=== PATIENT | male | born 1945 | race Caucasian/White ===

== ENCOUNTER 2016-05-19 14:31 | Inpatient (IN) | payer MEDICARE, BC ==
[~2016-05-19] VITALS: Ht 182.9 cm; Wt 127.0 kg
[~2016-05-19 14:31] MED LIST: ACYC400T PO; ALBU8I INH; ASPI325T24 PO; AVAP300T PO; BUPR300T PO; CELE200C PO; FIBECAP2 PO; HYDR-3129 PO; LEVA750T PO; PRAV40TA2 PO; PRED10PA PO; RANI150T PO; RAPA8CAP PO; REST0.05 EACH EYE; SYMB160A INH; TIOT18I INH; Z.0.OXYGENDME NC
[2016-05-19 14:50] VITALS: BP 138/82; PULSE 109; RESP 16; TEMP 99.7; O2SAT 90
[2016-05-19 19:25] VITALS: BP 165/79; PULSE 97; RESP 18; TEMP 98; O2SAT 100
[2016-05-19] MEDS ORDERED: SODIUM CHLOR 0.9% 1000 ML INJ 1,000 ML IV ONE (19:30)
--- NOTE | 2016-05-19 19:52 | PD ---
HPI Chief Complaint: Altered Mental Status Time Seen by Provider: 19:09 Travel History International Travel<30 days: No Contact w/Intl Traveler<30days: No Traveled to known affect area: No History of Present Illness HPI 71yo M with PMH of ITP s/p splenectomy, prostate cancer, COPD on home O2 2L NC brought in by daughter for altered mental status. Her daughter is visiting and noticed that he was more tired than usual yesterday and brought him to his urologist for routine follow up for prostate CA. He was told to go to his PMD Dr. Alonzo because he did not look good. Pt went to Dr. Alonzo and was sent to the ED for further evaluation. Daughter states that he has been saying things such as the color of the clock that was wrong and has been repeating himself. Pt denies any fever, headache, visual changes, chest pain, sob, vomiting, abdominal pain, focal weakness or numbness. Pt is feeling nauseous and has a tender right anterior lump that feels like a lymph node. PFSH Past Medical History Arthritis: No Asthma: No Autoimmune Disease: No Blood Disorders: No Anxiety: Yes Depression: No Heart Rhythm Problems: No Cancer: Yes (PROSTATE CA) Cardiovascular Problems: No High Cholesterol: No Chemotherapy: No Chest Pain: No Congestive Heart Failure: No COPD: Yes Cerebrovascular Accident: No Diabetes: No Diminished Hearing: No Endocrine: No Gastrointestinal Disorders: Yes (ACID REFLUX ) GERD: Yes Genitourinary: No Headaches: Yes Hepatitis: No Heparin Induced Thrombocytopen: No Hypertension: Yes Immune Disorder: No Implanted Vascular Access Dvce: Yes Kidney Stones: No Medical other: No Musculoskeletal: Yes (ARTHRITIS;LOSS OF MUSCLE) Neurologic: Yes (HX MINI STROKE) Psychiatric: No Reproductive: Yes (PROSTATE CA) Respiratory: Yes Migraines: No Myocardial Infarction: Yes Radiation Therapy: No Renal Failure: No Seizures: No Sickle Cell Disease: No Sleep Apnea: No Thyroid Disease: No Ulcer: No Past Surgical History Abdominal Surgery: No AICD: No Appendectomy: No Arteriovenous Shunt: No Body Medical Devices: LUPE SHOULDER REPLAC Cardiac Surgery: No Cholecystectomy: No Ear Surgery: Yes (MASTOID/ RIGHT EAR DRUM REPLAC 1996) Endocrine Surgery: No Eye Surgery: No Genitourinary Surgery: No Insulin Pump: No Joint Replacement: Yes (LUPE shoulder replacement) Neurologic Surgery: No Oral Surgery: Yes (TONSILLECTOMY ) Pacemaker: No Thoracic Surgery: No Tonsillectomy: Yes Other Surgery: Yes (SPLEEN) Social History Alcohol Use: No Tobacco Use: No Substance Use: No Allergies-Medications (Allergen,Severity, Reaction): Coded Allergies: No Known Allergies (Verified , 05/19/16) Reported Meds & Prescriptions Reported Meds & Active Scripts Active Reported Rapaflo (Silodosin) 8 Mg Cap 8 Mg PO DAILY Ranitidine (Ranitidine HCl) 150 Mg Tab 150 Mg PO BID Pravastatin 40 Mg Tab 40 Mg PO DAILY Avapro (Irbesartan) 300 Mg Tab 300 Mg PO DAILY [place] (Hydrocodone-Acetaminophen) 10-325 Mg Tab 1 Tab PO Q4H PRN Restasis Opth Drops (Cyclosporine Opth Drops) 0.05% Emul 1 Drop EACH EYE BID Celebrex (Celecoxib) 200 Mg Cap 200 Mg PO BID Bupropion HCl ER 24 HR (Bupropion HCl) 300 Mg Tab 300 Mg PO DAILY Symbicort Inh (Budesonide/Formoterol Fumarate) 160-4.5 Mcg/Act Aero 2 Puff INH Q12HR Ecotrin Regular Strength (Aspirin) 325 Mg Tabdr 325 Mg PO DAILY Ventolin Hfa 18 GM Inh (Albuterol Sulfate) 90 Mcg/Act Aer 2 Puff INH Q4-6H PRN Acyclovir 400 Mg Tab 400 Mg PO BID Review of Systems Except as stated in HPI: all other systems reviewed are Neg Physical Exam Narrative GENERAL: 71yo M not in distress. SKIN: Warm and dry. HEAD: Atraumatic. Normocephalic. EYES: Pupils equal and round. No scleral icterus. No injection or drainage. ENT: Throat: Clear. Bilateral TM not visualized due to cerumen impaction. No nasal bleeding or discharge. Mucous membranes pink and moist. NECK: +TTP right anterior lymph node. CARDIOVASCULAR: Regular rate and rhythm. No murmur appreciated. RESPIRATORY: No accessory muscle use. Clear to auscultation. Breath sounds equal bilaterally. GASTROINTESTINAL: Abdomen soft, non-tender, nondistended. No rebound tenderness or guarding. MUSCULOSKELETAL: No obvious deformities. No clubbing. No cyanosis. +Bilateral lower ext edema. NEUROLOGICAL: Awake and alert. Pt has ptosis on left that is not new. Motor grossly within normal limits. Normal speech. PSYCHIATRIC: Appropriate mood and affect; insight and judgment normal. Data Data Last Documented VS Vital Signs Date Time Temp Pulse Resp B/P Pulse Ox O2 Delivery O2 Flow Rate FiO2 05/19/16 19:25 98.0 97 18 165/79 100 Nasal Cannula 2 Orders Ammonia (05/19/16 19:20) Basic Metabolic Panel (Bmp) (05/19/16 19:20) Complete Blood Count With Diff (05/19/16 19:20) Prothrombin Time / Inr (Pt) (05/19/16 19:20) Act Partial Throm Time (Ptt) (05/19/16 19:20) Troponin I (05/19/16 19:20) Thyroid Stimulating Hormone (05/19/16 19:20) Lactic Acid Sepsis Protocol (05/19/16 19:20) Urinalysis - C+S If Indicated (05/19/16 19:20) Blood Culture (05/19/16 19:20) Chest, Single Ap (05/19/16 19:20) Ct Brain W/O Iv Contrast(Rout) (05/19/16 19:20) Blood Glucose (05/19/16 19:20) Ecg Monitoring (05/19/16 19:20) Iv Access Insert/Monitor (05/19/16 19:20) Oximetry (05/19/16 19:20) Sodium Chloride 0.9% Flush (Ns Flush) (05/19/16 19:30) Sodium Chlor 0.9% 1000 Ml Inj (Ns 1000 M (05/19/16 19:30) Soft Tissue Neck (05/19/16 ) Cath For Specimen (05/19/16 20:27) Vancomycin Inj (Vancomycin Inj) (05/19/16 20:30) Piperacil-Tazo 2.25 Gm Premix (Zosyn 2.2 (05/19/16 20:30) Admit Order (Ed Use Only) (05/19/16 21:39) Labs Laboratory Tests Test 05/19/16 05/19/16 19:50 21:10 White Blood Count 22.9 TH/MM3 Red Blood Count 4.70 MIL/MM3 Hemoglobin 15.0 GM/DL Hematocrit 44.0 % Mean Corpuscular Volume 93.7 FL Mean Corpuscular Hemoglobin 32.0 PG Mean Corpuscular Hemoglobin 34.1 % Concent Red Cell Distribution Width 14.0 % Platelet Count 251 TH/MM3 Mean Platelet Volume 9.2 FL Neutrophils (%) (Auto) 79.9 % Lymphocytes (%) (Auto) 6.7 % Monocytes (%) (Auto) 11.1 % Eosinophils (%) (Auto) 0.1 % Basophils (%) (Auto) 2.2 % Neutrophils # (Auto) 18.4 TH/MM3 Lymphocytes # (Auto) 1.5 TH/MM3 Monocytes # (Auto) 2.5 TH/MM3 Eosinophils # (Auto) 0.0 TH/MM3 Basophils # (Auto) 0.5 TH/MM3 CBC Comment AUTO DIFF Differential Total Cells 100 Counted Neutrophils % (Manual) 80 % Band Neutrophils % 5 % Lymphocytes % 5 % Monocytes % 9 % Eosinophils % 1 % Neutrophils # (Manual) 19.5 TH/MM3 Differential Comment FINAL DIFF MANUAL Platelet Estimate NORMAL Platelet Morphology Comment NORMAL Red Cell Morphology Comment NORMAL Prothrombin Time 11.4 SEC Prothromb Time International 1.0 RATIO Ratio Activated Partial 23.0 SEC Thromboplast Time Sodium Level 135 MEQ/L Potassium Level 4.6 MEQ/L Chloride Level 99 MEQ/L Carbon Dioxide Level 29.3 MEQ/L Anion Gap 7 MEQ/L Blood Urea Nitrogen 19 MG/DL Creatinine 0.97 MG/DL Estimat Glomerular Filtration 76 ML/MIN Rate Random Glucose 127 MG/DL Lactic Acid Level 1.9 mmol/L Calcium Level 9.2 MG/DL Ammonia LESS THAN 10 MCMOL/L Troponin I LESS THAN 0.02 NG/ML Thyroid Stimulating Hormone 0.545 uIU/ML 3rd Gen Urine Color YELLOW Urine Turbidity CLEAR Urine pH 5.5 Urine Specific [place] 1.024 Urine Protein TRACE mg/dL Urine Glucose (UA) NEG mg/dL Urine Ketones 15 mg/dL Urine Occult Blood TRACE Urine Nitrite NEG Urine Bilirubin NEG Urine Leukocyte Esterase NEG Urine RBC 0-3 /hpf Urine WBC 0-2 /hpf Urine Squamous Epithelial 0-5 /hpf Cells Urine Bacteria NONE /hpf Microscopic Urinalysis Comment CULT NOT INDICATED MDM Medical Decision Making Medical Screen Exam Complete: Yes Emergency Medical Condition: Yes Interpretation(s) Laboratory Tests Test 05/19/16 05/19/16 19:50 21:10 White Blood Count 22.9 TH/MM3 (4.0-11.0) Red Blood Count 4.70 MIL/MM3 (4.50-5.90) Hemoglobin 15.0 GM/DL (13.0-17.0) Hematocrit 44.0 % (39.0-51.0) Mean Corpuscular Volume 93.7 FL (80.0-100.0) Mean Corpuscular Hemoglobin 32.0 PG (27.0-34.0) Mean Corpuscular Hemoglobin 34.1 % Concent (32.0-36.0) Red Cell Distribution Width 14.0 % (11.6-17.2) Platelet Count 251 TH/MM3 (150-450) Mean Platelet Volume 9.2 FL (7.0-11.0) Neutrophils (%) (Auto) 79.9 % (16.0-70.0) Lymphocytes (%) (Auto) 6.7 % (9.0-44.0) Monocytes (%) (Auto) 11.1 % (0.0-8.0) Eosinophils (%) (Auto) 0.1 % (0.0-4.0) Basophils (%) (Auto) 2.2 % (0.0-2.0) Neutrophils # (Auto) 18.4 TH/MM3 (1.8-7.7) Lymphocytes # (Auto) 1.5 TH/MM3 (1.0-4.8) Monocytes # (Auto) 2.5 TH/MM3 (0-0.9) Eosinophils # (Auto) 0.0 TH/MM3 (0-0.4) Basophils # (Auto) 0.5 TH/MM3 (0-0.2) CBC Comment AUTO DIFF Differential Total Cells 100 Counted Neutrophils % (Manual) 80 % (16-70) Band Neutrophils % 5 % (0-6) Lymphocytes % 5 % (9-44) Monocytes % 9 % (0-8) Eosinophils % 1 % (0-4) Neutrophils # (Manual) 19.5 TH/MM3 (1.8-7.7) Differential Comment FINAL DIFF MANUAL Platelet Estimate NORMAL (NORMAL) Platelet Morphology Comment NORMAL (NORMAL) Red Cell Morphology Comment NORMAL (NORMAL) Prothrombin Time 11.4 SEC (9.8-11.6) Prothromb Time International 1.0 RATIO Ratio Activated Partial 23.0 SEC Thromboplast Time (24.3-30.1) Sodium Level 135 MEQ/L (136-145) Potassium Level 4.6 MEQ/L (3.5-5.1) Chloride Level 99 MEQ/L (98-107) Carbon Dioxide Level 29.3 MEQ/L (21.0-32.0) Anion Gap 7 MEQ/L (5-15) Blood Urea Nitrogen 19 MG/DL (7-18) Creatinine 0.97 MG/DL (0.60-1.30) Estimat Glomerular Filtration 76 ML/MIN (>89) Rate Random Glucose 127 MG/DL (74-106) Lactic Acid Level 1.9 mmol/L (0.4-2.0) Calcium Level 9.2 MG/DL (8.5-10.1) Ammonia LESS THAN 10 MCMOL/L (11-32) Troponin I LESS THAN 0.02 NG/ML (0.02-0.05) Thyroid Stimulating Hormone 0.545 uIU/ML 3rd Gen (0.358-3.740) Urine Color YELLOW (YELLW/STRAW) Urine Turbidity CLEAR (CLEAR) Urine pH 5.5 (5.0-8.5) Urine Specific [place] 1.024 (1.002-1.035) Urine Protein TRACE mg/dL (NEG-TRACE) Urine Glucose (UA) NEG mg/dL (NEG) Urine Ketones 15 mg/dL (NEG) Urine Occult Blood TRACE (NEG) Urine Nitrite NEG (NEG) Urine Bilirubin NEG (NEG) Urine Leukocyte Esterase NEG (NEG) Urine RBC 0-3 /hpf (0-3) Urine WBC 0-2 /hpf (0-5) Urine Squamous Epithelial 0-5 /hpf (0-5) Cells Urine Bacteria NONE /hpf (NONE) Microscopic Urinalysis Comment CULT NOT INDICATED Last Impressions Head CT 05/19/161919 Signed Impressions: Service Date/Time: Thursday, May 19, 2016 20:13 - CONCLUSION: Unremarkable exam for age Vaughn Torres MD Chest X-Ray 05/19/161919 Signed Impressions: Service Date/Time: Thursday, May 19, 2016 19:34 - CONCLUSION: No acute disease. No significant change has occurred. Adi Ralph MD Soft Tissue Neck X-Ray 05/19/16 0000 Signed Impressions: Service Date/Time: Thursday, May 19, 2016 19:34 - CONCLUSION: Limited plain films of the cervical spine. There are bony degenerative changes noted involving the cervical spine especially on the AP view. Adi Ralph MD Differential Diagnosis AMS secondary to UTI vs. electrolyte abnormality vs. viral syndrome vs. influenza vs. dehydration Narrative Course 71yo M brought in by daughter because he is more lethargic and not acting like himself. Pt was initially mildly tachycardic at 109bpm. Pt given NS IVF and HR is now 78. Pt uses oxygen at home and is saturating 100% on 2 L NC. Pt states he feels fine and is AAOx2. Daughter states he is more like himself now but not at baseline. He is usually very talkable and jokes around. Labs reviewed, leukocytosis at 22.9. Normal glucose, TSH and lactic acid. Negative ammonia and troponin. UA showed trace blood. +Ketones. No leukocyte or nitrite. CXR showed no acute disease. CT brain unremarkable. Xray soft tissue neck showed mikie degenerative changes on cervical spine. Pt empirically given vancomycin and zosyn. Discussed with Dr. Deshpande and accepted to his service for sepsis with unknown source. Critical Care Narrative Aggregate critical care was 35 minutes. Time to perform other separately billable procedures was not included in the critical care time. My time did not include minutes spent treating any other patients simultaneously or on activities that did not directly contribute to the patient's treatment. The services I provided to this patient were to treat and/or prevent clinically significant deterioration that could result in: cardiovascular collapse or . I provided critical care services requiring my management, as noted below: Chart data review, documentation time, medication orders and management, vital sign assessments/reviewing monitor data, ordering and reviewing lab tests, ordereing and interpreting/reviewing x-rays and diagnostic studies, care of the patient and discussion of the patient with the admitting physicians. Diagnosis Primary Impression: Sepsis Qualified Code: A41.9 - Sepsis, due to unspecified organism Admitting Information Admitting Physician Requests: Admit ArreolaAlice [email or web address] May 19, 2016 19:52
--- NOTE | 2016-05-19 19:53 | RADHPO ---
EXAM DATE/TIME: 05/19/2016 19:34 [facility] COMPARISON: CHEST SINGLE AP, November 11, 2015, 15:04. INDICATIONS : Extremely short of breath and swollen neck. MEDICAL HISTORY : Chronic obstructive pulmonary disease. Hypertension Carcinoma, prostatic. SURGICAL HISTORY : Splenectomy. ENCOUNTER: Initial ACUITY: 3 days PAIN SCORE: 4/10 LOCATION: Bilateral chest FINDINGS: A single view of the chest demonstrates the lungs to be symmetrically aerated without evidence of mas s, infiltrate or effusion. The cardiomediastinal contours are stable. Osseous structures are stable. CONCLUSION: No acute disease. No significant change has occurred. Adi Ralph MD on May 19, 2016 at 19:52 Board Certified Radiologist. This report was verified electronically.
--- NOTE | 2016-05-19 19:55 | RADHPO ---
EXAM DATE/TIME: 05/19/2016 19:34 [facility] COMPARISON: No previous studies available for comparison. INDICATIONS : Sore neck for several days , no trauma. MEDICAL HISTORY : Chronic obstructive pulmonary disease. Hypertension Carcinoma, prostatic. SURGICAL HISTORY : Splenectomy. ENCOUNTER: Initial ACUITY: 3 days PAIN SCORE: 8/10 LOCATION: Bilateral neck FINDINGS: Very limited views of the cervical spine. There is moderate diffuse primary degenerative changes thro ughout the cervical spine best seen on the AP view. On the lateral view C1-C4 visualized. The lower c ervical spine is not visualized on the lateral view. No focal soft tissue swelling is demonstrated on the visualized portions of the cervical spine. CONCLUSION: Limited plain films of the cervical spine. There are bony degenerative changes noted involving the ce rvical spine especially on the AP view. Adi Ralph MD on May 19, 2016 at 19:52 Board Certified Radiologist. This report was verified electronically.
[2016-05-19 20:12] LABS: AUTOMATED NEUTROPHIL # 18.4 TH/MM3 (1.8-7.7); BASOPHIL # 0.5 TH/MM3 (0-0.2); BASOPHIL % 2.2 % (0.0-2.0); EOSINOPHIL % 0.1 % (0.0-4.0); LYMPH % 6.7 % (9.0-44.0); LYMPHOCYTE # 1.5 TH/MM3 (1.0-4.8); MEAN CELL VOLUME 93.7 FL (80.0-100.0); MEAN CORPUSCULAR HGB CONC 34.1 % (32.0-36.0); MONO % 11.1 % (0.0-8.0); NEUT % 79.9 % (16.0-70.0); PLATELET COUNT 251 TH/MM3 (150-450); WHITE BLOOD COUNT 22.9 TH/MM3 (4.0-11.0)
[2016-05-19 20:14] LABS: HEMO FLAGS AUTO DIFF
[2016-05-19 20:22] LABS: CHLORIDE 99 MEQ/L (98-107); POTASSIUM 4.6 MEQ/L (3.5-5.1); SODIUM (NA) 135 MEQ/L (136-145)
[2016-05-19 20:25] LABS: ANION GAP 7 MEQ/L (5-15); BICARBONATE 29.3 MEQ/L (21.0-32.0); BLOOD UREA NITROGEN 19 MG/DL (7-18)
[2016-05-19 20:26] LABS: PROTHROMBIN TIME - PATIENT 11.4 SEC (9.8-11.6)
[2016-05-19 20:28] LABS: GLOMERULAR FILTRATION RATE 76 ML/MIN (>89)
[2016-05-19] MEDS ORDERED: PIPERACIL-TAZO 2.25 GM PREMIX 50 ML IV ONE (20:30)
[2016-05-19] MEDS ORDERED: VANCOMYCIN INJ 1,000 MG in SODIUM CHLOR 0.9% 250 ML INJ 250 ML IV ONE (20:30)
--- NOTE | 2016-05-19 20:31 | RADHPO ---
EXAM DATE/TIME: 05/19/2016 20:13 [facility] COMPARISON: No previous studies available for comparison. INDICATIONS : Altered mental status. RADIATION DOSE: 61.32 CTDIvol (mGy) MEDICAL HISTORY : Hypertension. Chronic obstructive pulmonary disease. SURGICAL HISTORY : None. ENCOUNTER: Initial ACUITY: 1 day PAIN SCALE: 4/10 LOCATION: cranial TECHNIQUE: Multiple contiguous axial images were obtained of the head. Using automated exposure control and adj ustment of the mA and/or kV according to patient size, radiation dose was kept as low as reasonably a chievable to obtain optimal diagnostic quality images. FINDINGS: The patient is tilted in the scanning gantry. CEREBRUM: The ventricles are normal for age with atrophic change. No evidence of midline shift, mass lesion, he morrhage or acute infarction. No extra-axial fluid collections are seen. POSTERIOR FOSSA: The cerebellum and brainstem are intact. The 4th ventricle is midline. The cerebellopontine angle i s unremarkable. EXTRACRANIAL: The visualized portion of the orbits is intact. SKULL: The calvaria is intact. No evidence of skull fracture. CONCLUSION: Unremarkable exam for age Vaughn Torres MD on May 19, 2016 at 20:29 Board Certified Radiologist. This report was verified electronically.
[2016-05-19 20:47] LABS: BANDS 5 % (0-6); EOSINOPHILS 1 % (0-4); NEUTROPHIL # MANUAL DIFF 19.5 TH/MM3 (1.8-7.7); POLYS (SEG NEUTROPHILS) 80 % (16-70); WBC DIFF SAMPLE 100
[2016-05-19 20:48] LABS: PLATELET ESTIMATE SMEAR NORMAL (NORMAL); PLATELET MORPHOLOGY NORMAL (NORMAL); SCAN/DIFF FINAL DIFF MANUAL
[2016-05-19 21:24] LABS: BLOOD, URINE TRACE (NEG); GLUCOSE,URINE NEG (NEG); KETONE, URINE 15 mg/dL (NEG); NITRITE,URINE NEG (NEG); PH, URINE 5.5 (5.0-8.5)
[2016-05-19 21:32] LABS: URINE COLOR YELLOW (YELLW/STRAW)
[2016-05-19 21:33] LABS: COMMENT (UR) CULT NOT INDICATED; CULTURE IF INDICATED CULT NOT INDICATED; RBC, URINE 0-3 /hpf (0-3); SQUAMOUS EPITHELIAL CELL URINE 0-5 /hpf (0-5); WBC, URINE 0-2 /hpf (0-5)
[2016-05-19 22:03] VITALS: BP 154/76; PULSE 78; RESP 16; O2SAT 99
[2016-05-19] MEDS ORDERED: PRAV40TA2 PO (22:29)
[2016-05-19] MEDS ORDERED: ASPI-146 PO (22:29)
[2016-05-19] MEDS ORDERED: VENTAER INH (22:29)
[2016-05-19] MEDS ORDERED: BUPR300T PO (22:29)
[2016-05-19] MEDS ORDERED: REST0.05 EACH EYE (22:29)
[2016-05-19] MEDS ORDERED: SYMB160A INH (22:29)
[2016-05-19] MEDS ORDERED: SPIRCAP INH (22:29)
[2016-05-19] MEDS ORDERED: HYDR-3366 PO (22:29)
[2016-05-19] MEDS ORDERED: CELE200C PO (22:29)
[2016-05-19] MEDS ORDERED: RANI150T PO (22:29)
[2016-05-19] MEDS ORDERED: RAPA8CAP PO (22:29)
[2016-05-19] MEDS ORDERED: IRBE300T44 PO (22:29)
[2016-05-19] MEDS ORDERED: ACYC400T PO (22:29)
[2016-05-19] MEDS: SODIUM CHLOR 0.9% 1000 ML INJ 1,000 ML IV SCH (22:52)
[2016-05-19] MEDS ORDERED: MAGNESIUM HYDROXIDE SUSP 30 ML CUP PO PRN (23:00)
[2016-05-19] MEDS ORDERED: NALOXONE HCL 0.4 MG/ML AMP IV PRN (23:00)
[2016-05-19] MEDS ORDERED: ACETAMINOPHEN 325 MG TAB PO PRN (23:00)
[2016-05-19] MEDS ORDERED: ONDANSETRON HCL 4 MG/2 ML VIAL IVP PRN (23:00)
[2016-05-19] MEDS ORDERED: Vancomycin Consult Pharmacy 1 EA OTHER SCH (23:00)
[2016-05-19 23:15] VITALS: O2SAT 94
[2016-05-19] MEDS ORDERED: VANCOMYCIN 1,000 MG/NS 250 ML IV ONE ×2 (23:30)
[2016-05-20] VITALS (11 sets, daily range): BP systolic 119–169; BP diastolic 63–75; PULSE 71–99; RESP 16–22; TEMP 97.3–99; O2SAT 94–97
[2016-05-20] MEDS: PIPERACIL-TAZO 3.375 GM PREMIX 50 ML IV SCH ×4 (03:55→21:46)
[2016-05-20 07:00] LABS: AUTOMATED NEUTROPHIL # 24.6 TH/MM3 (1.8-7.7); BASOPHIL # 0.4 TH/MM3 (0-0.2); BASOPHIL % 1.2 % (0.0-2.0); HEMATOCRIT 41.6 % (39.0-51.0); LYMPH % 5.5 % (9.0-44.0); LYMPHOCYTE # 1.6 TH/MM3 (1.0-4.8); MEAN CORPUSCULAR HEMOGLOBIN 30.9 PG (27.0-34.0); MEAN CORPUSCULAR HGB CONC 32.9 % (32.0-36.0); MONO % 9.9 % (0.0-8.0); NEUT % 83.4 % (16.0-70.0); PLATELET COUNT 194 TH/MM3 (150-450); RED BLOOD COUNT 4.43 MIL/MM3 (4.50-5.90); RED CELL DISTRIBUTION WIDTH 13.8 % (11.6-17.2); WHITE BLOOD COUNT 29.5 TH/MM3 (4.0-11.0)
[2016-05-20 07:02] LABS: HEMO FLAGS AUTO DIFF
[2016-05-20 07:08] LABS: CHLORIDE 99 MEQ/L (98-107); SODIUM (NA) 135 MEQ/L (136-145)
[2016-05-20 07:12] LABS: ANION GAP 12 MEQ/L (5-15); BICARBONATE 24.4 MEQ/L (21.0-32.0); BLOOD UREA NITROGEN 17 MG/DL (7-18)
[2016-05-20 07:15] LABS: ALT (GPT) 24 U/L (12-78); AST (GOT) 17 U/L (15-37); GLOMERULAR FILTRATION RATE 91 ML/MIN (>89)
[2016-05-20 07:17] LABS: TOTAL BILIRUBIN ADULT 1.1 MG/DL (0.2-1.0)
[2016-05-20 07:18] LABS: ALKALINE PHOSPHATASE 69 U/L (45-117)
[2016-05-20 08:12] LABS: PLATELET ESTIMATE SMEAR NORMAL (NORMAL); PLATELET MORPHOLOGY NORMAL (NORMAL); SCAN/DIFF AUTO DIFF CONFIRMED; TOXIC VACUOLATION PRESENT (NONE SEEN)
[2016-05-20] MEDS ORDERED: CYCLOSPORINE OPTH EACH EYE SCH (09:30)
--- NOTE | 2016-05-20 09:57 | HHI.HP ---
HPI Service [facility] Primary Care Physician Juventino Alonzo MD Admission Diagnosis Sepsis, AMS Diagnoses: (1) Sepsis (2) Toxic metabolic encephalopathy (3) HTN (hypertension) (4) Dyslipidemia Travel History International Travel<30 Days: No Contact w/Intl Traveler <30 Da: No Traveled to Known Affected Are: No Sepsis Criteria SIRS Criteria (2 or more): Heart rate over 90, WBC > 17822, < 4000 or > 10% bands Criteria Outcome: Meets sepsis criteria History of Present Illness 71-year-old male with PMX of Hypertension, prostate cancer, COPD on home O2 2L NC was brought to the ED for evaluation for Altered mental status by his daughter on 05/19/16 after patient was seen earlier by his PCP who advised further evaluation in the hospital. Per EMR patient has been repeating himself. Soft tissue Xray as well as Head CT and CXR were all unremarkable.This AM during my exam, patient was alert and oriented x 3. He denies any chest pain and was afebrile. NO GI bleed , abdominal pain, focal weakness or numbness. Review of Systems Other 12 systems reviewed and are negative except for the ones mentioned in history of present illness Past Family Social History Past Medical History ITP Prostate cancer Hypertension Anxiety depression COPD Questionable history of TIA, [place]. Past Surgical History Bilateral shoulder surgery, tonsillectomy, splenectomy Reported Medications Rapaflo (Silodosin) 8 Mg Cap 8 Mg PO DAILY Ranitidine (Ranitidine HCl) 150 Mg Tab 150 Mg PO BID Pravastatin 40 Mg Tab 40 Mg PO DAILY Avapro (Irbesartan) 300 Mg Tab 300 Mg PO DAILY [place] (Hydrocodone-Acetaminophen) 10-325 Mg Tab 1 Tab PO Q4H PRN Restasis Opth Drops (Cyclosporine Opth Drops) 0.05% Emul 1 Drop EACH EYE BID Celebrex (Celecoxib) 200 Mg Cap 200 Mg PO BID Bupropion HCl ER 24 HR (Bupropion HCl) 300 Mg Tab 300 Mg PO DAILY Symbicort Inh (Budesonide/Formoterol Fumarate) 160-4.5 Mcg/Act Aero 2 Puff INH Q12HR Ecotrin Regular Strength (Aspirin) 325 Mg Tabdr 325 Mg PO DAILY Ventolin Hfa 18 GM Inh (Albuterol Sulfate) 90 Mcg/Act Aer 2 Puff INH Q4-6H PRN Acyclovir 400 Mg Tab 400 Mg PO BID Allergies: Coded Allergies: No Known Allergies (Verified , 05/19/16) Family History Mothercancer, diabetes dadblood cancer Social History Patient denies using alcohol, tobacco or illicit drugs. Physical Exam Vital Signs Vital Signs Date Time Temp Pulse Resp B/P Pulse Ox O2 Delivery O2 Flow Rate FiO2 05/20/16 08:00 99.0 77 20 136/75 97 05/20/16 07:40 82 16 95 Nasal Cannula 3 05/20/16 06:09 95 18 140/67 94 Nasal Cannula 2 05/20/16 04:18 97 16 119/64 97 Nasal Cannula 2 05/20/16 00:15 96 16 169/66 96 Nasal Cannula 2 05/19/16 23:15 94 Nasal Cannula 2.00 05/19/16 22:03 78 16 154/76 99 Nasal Cannula 2 05/19/16 19:25 98.0 97 18 165/79 100 Nasal Cannula 2 05/19/16 19:25 18 100 Nasal Cannula 2 05/19/16 14:50 99.7 109 16 138/82 90 Physical Exam GENERAL: This is a well-nourished, well-developed patient, in no apparent distress. SKIN: No rashes, ecchymoses or lesions. Cool and dry. HEAD: Atraumatic. Normocephalic. No temporal or scalp tenderness. EYES: Pupils equal round and reactive. Extraocular motions intact. No scleral icterus. No injection or drainage. ENT: Nose without bleeding, purulent drainage or septal hematoma. Throat without erythema, tonsillar hypertrophy or exudate. Uvula midline. Airway patent. NECK: Trachea midline. No JVD or lymphadenopathy. Supple, nontender, no meningeal signs. CARDIOVASCULAR: Regular rate and rhythm without murmurs, gallops, or rubs. RESPIRATORY: Clear to auscultation. Breath sounds equal bilaterally. No wheezes , rales, or rhonchi. GASTROINTESTINAL: Abdomen soft, non-tender, nondistended. No hepato-splenomegaly , or palpable masses. No guarding. MUSCULOSKELETAL: Extremities without clubbing, cyanosis, or edema. No joint tenderness, effusion, or edema noted. No calf tenderness. Negative Homans sign bilaterally. NEUROLOGICAL: Awake and alert. Cranial nerves II through XII intact. Motor and sensory grossly within normal limits. Five out of 5 muscle strength in all muscle groups. Normal speech. Laboratory Laboratory Tests Test 05/19/16 05/19/16 05/20/16 19:50 21:10 06:00 White Blood Count 22.9 29.5 Red Blood Count 4.70 4.43 Hemoglobin 15.0 13.7 Hematocrit 44.0 41.6 Mean Corpuscular Volume 93.7 94.0 Mean Corpuscular Hemoglobin 32.0 30.9 Mean Corpuscular Hemoglobin 34.1 32.9 Concent Red Cell Distribution Width 14.0 13.8 Platelet Count 251 194 Mean Platelet Volume 9.2 9.8 Neutrophils (%) (Auto) 79.9 83.4 Lymphocytes (%) (Auto) 6.7 5.5 Monocytes (%) (Auto) 11.1 9.9 Eosinophils (%) (Auto) 0.1 0.0 Basophils (%) (Auto) 2.2 1.2 Neutrophils # (Auto) 18.4 24.6 Lymphocytes # (Auto) 1.5 1.6 Monocytes # (Auto) 2.5 2.9 Eosinophils # (Auto) 0.0 0.0 Basophils # (Auto) 0.5 0.4 CBC Comment AUTO DIFF AUTO DIFF Differential Total Cells 100 Counted Neutrophils % (Manual) 80 Band Neutrophils % 5 Lymphocytes % 5 Monocytes % 9 Eosinophils % 1 Neutrophils # (Manual) 19.5 Differential Comment FINAL DIFF AUTO DIFF MANUAL CONFIRMED Platelet Estimate NORMAL NORMAL Platelet Morphology Comment NORMAL NORMAL Red Cell Morphology Comment NORMAL NORMAL Prothrombin Time 11.4 Prothromb Time International 1.0 Ratio Activated Partial 23.0 Thromboplast Time Sodium Level 135 135 Potassium Level 4.6 4.0 Chloride Level 99 99 Carbon Dioxide Level 29.3 24.4 Anion Gap 7 12 Blood Urea Nitrogen 19 17 Creatinine 0.97 0.83 Estimat Glomerular Filtration 76 91 Rate Random Glucose 127 124 Lactic Acid Level 1.9 Calcium Level 9.2 8.4 Ammonia LESS THAN 10 Troponin I LESS THAN 0.02 Thyroid Stimulating Hormone 0.545 3rd Gen Urine Color YELLOW Urine Turbidity CLEAR Urine pH 5.5 Urine Specific [place] 1.024 Urine Protein TRACE Urine Glucose (UA) NEG Urine Ketones 15 Urine Occult Blood TRACE Urine Nitrite NEG Urine Bilirubin NEG Urine Leukocyte Esterase NEG Urine RBC 0-3 Urine WBC 0-2 Urine Squamous Epithelial 0-5 Cells Urine Bacteria NONE Microscopic Urinalysis Comment CULT NOT INDICATED Toxic Vacuolation PRESENT Total Bilirubin 1.1 Aspartate Amino Transf 17 (AST/SGOT) Alanine Aminotransferase 24 (ALT/SGPT) Alkaline Phosphatase 69 Total Protein 7.1 Albumin 3.0 Date/Time Procedure Status Source Growth 05/19/16 23:10 Influenza Types A,B Antigen (HERACLIO) - Final Complete Nasal Aspirate NEGATIVE FOR FLU A AND B ANTIGEN.... 05/19/16 20:00 Aerobic Blood Culture Received Blood Peripheral Pending 05/19/16 20:00 Anaerobic Blood Culture Received Blood Peripheral Pending Result Diagram: 05/20/16 0600 05/20/16 0600 Imaging Last Impressions Head CT 05/19/161919 Signed Impressions: Service Date/Time: Thursday, May 19, 2016 20:13 - CONCLUSION: Unremarkable exam for age Vaughn Torres MD Chest X-Ray 05/19/161919 Signed Impressions: Service Date/Time: Thursday, May 19, 2016 19:34 - CONCLUSION: No acute disease. No significant change has occurred. Adi Ralph MD Soft Tissue Neck X-Ray 05/19/16 0000 Signed Impressions: Service Date/Time: Thursday, May 19, 2016 19:34 - CONCLUSION: Limited plain films of the cervical spine. There are bony degenerative changes noted involving the cervical spine especially on the AP view. Adi Ralph MD Assessment and Plan Problem List: (1) Sepsis ICD Code: A41.9 Status: Acute (2) Toxic metabolic encephalopathy ICD Code: G92 Status: Acute (3) HTN (hypertension) ICD Code: I10 Status: Acute (4) Dyslipidemia ICD Code: E78.5 Status: Acute (5) GERD (gastroesophageal reflux disease) ICD Code: K21.9 Status: Acute (6) Dependence on supplemental oxygen ICD Code: Z99.81 Status: Acute (7) COPD (chronic obstructive pulmonary disease) ICD Code: J44.9 Status: Acute Assessment and Plan 71-year-old man with Sepsis: Meets sepsis criteria, Heart rate over 90, WBC > 29520, < 4000 or > 10% bands however an unknown source. UA, chest x-ray negative. Status post Zosyn and vancomycin IV in ED, currently on empiric Zosyn pending culture report Toxic metabolic encephalopathy: Soft tissue x-ray, head CT, chest x-ray all review by me without any acute finding. Encephalopathy resolved. UA, chest x- ray negative. We will hold all TABULAR TYPIST depressant medication including all narcotics. History of COPD on 2 L nasal cannula: NO current exacerbation; resume outpatient medications and maintain oxygen saturation above 92%. Hypertension - Continue patient's home med (ARB). Dyslipidemia - continue Statin. GERD - continue home Ranitidine. Dependence on supplemental oxygen: Continue with 2 L nasal cannula Code Status Full code Discussed Condition With Patient Physician Certification 2 Midnight Certification Type: Admission for Inpatient Services Order for Inpatient Services The services are ordered in accordance with Medicare regulations or non- Medicare payer requirements, as applicable. In the case of services not specified as inpatient-only, they are appropriately provided as inpatient services in accordance with the 2-midnight benchmark. Estimated LOS (days): 2 days is the estimated time the patient will need to remain in the hospital, assuming treatment plan goals are met and no additional complications. Post-Hospital Plan: Not yet determined Problem Qualifiers (1) Sepsis: Qualified Code: A41.9 - Sepsis, due to unspecified organism Manuel Armendariz MD May 20, 2016 09:57
[2016-05-20] MEDS: ACYCLOVIR 200 MG CAP PO SCH ×2 (10:21→21:45)
[2016-05-20] MEDS: LOSARTAN 50 MG TAB PO SCH (10:21)
[2016-05-20] MEDS: ASPIRIN EC 325 MG TABEC PO SCH (10:21)
[2016-05-20] MEDS: buPROPion HCL 150 MG SUSTAINED RELEASE TAB PO SCH ×2 (10:21→21:45)
[2016-05-20] MEDS: TIOTROPIUM BROMIDE 18 MCG INH INH SCH (10:22)
[2016-05-20] MEDS: PRAVASTATIN SOD 40 MG TAB PO SCH (10:22)
[2016-05-20] MEDS: FAMOTIDINE 20 MG TAB PO SCH ×2 (10:22→21:46)
[2016-05-20] MEDS: BUDESONIDE-FORMOTEROL 160/4.5 MCG INHALER INH SCH ×2 (10:23→21:43)
[2016-05-20] MEDS: TAMSULOSIN HCL 0.4 MG CAP PO SCH (10:40)
[2016-05-20] MEDS: VANCOMYCIN INJ 2,300 MG in SODIUM CHLORID 0.9% 500 ML INJ 500 ML IV SCH (13:02)
[2016-05-20] MEDS: SODIUM CHLORIDE 0.9% FLUSH 5 ML FLUSH IVF PRN (21:43)
[2016-05-20] MEDS: SODIUM CHLOR 0.9% 1000 ML INJ 1,000 ML IV SCH (21:45)
[2016-05-21] VITALS (9 sets, daily range): BP systolic 110–181; BP diastolic 63–78; PULSE 68–105; RESP 20–24; TEMP 96–100; O2SAT 93–99
[2016-05-21] MEDS: VANCOMYCIN INJ 2,300 MG in SODIUM CHLORID 0.9% 500 ML INJ 500 ML IV SCH ×2 (00:37→12:05)
[2016-05-21] MEDS: SODIUM CHLORIDE 0.9% FLUSH 5 ML FLUSH IVF PRN ×3 (00:37→21:15)
[2016-05-21] MEDS: PIPERACIL-TAZO 3.375 GM PREMIX 50 ML IV SCH ×4 (03:17→21:15)
[2016-05-21 06:45] LABS: BICARBONATE 24.5 MEQ/L (21.0-32.0); POTASSIUM 3.7 MEQ/L (3.5-5.1)
[2016-05-21 06:55] LABS: AUTOMATED NEUTROPHIL # 14.7 TH/MM3 (1.8-7.7); BASOPHIL # 0.1 TH/MM3 (0-0.2); BASOPHIL % 0.4 % (0.0-2.0); EOSINOPHIL # 0.1 TH/MM3 (0-0.4); EOSINOPHIL % 0.8 % (0.0-4.0); HEMATOCRIT 40.3 % (39.0-51.0); LYMPH % 8.1 % (9.0-44.0); LYMPHOCYTE # 1.5 TH/MM3 (1.0-4.8); MEAN CELL VOLUME 95.8 FL (80.0-100.0); MEAN CORPUSCULAR HEMOGLOBIN 31.2 PG (27.0-34.0); MEAN CORPUSCULAR HGB CONC 32.6 % (32.0-36.0); MONO % 11.6 % (0.0-8.0); NEUT % 79.1 % (16.0-70.0); PLATELET COUNT 131 TH/MM3 (150-450); RED BLOOD COUNT 4.21 MIL/MM3 (4.50-5.90); RED CELL DISTRIBUTION WIDTH 14.4 % (11.6-17.2); WHITE BLOOD COUNT 18.5 TH/MM3 (4.0-11.0)
[2016-05-21 06:59] LABS: HEMO FLAGS AUTO DIFF
[2016-05-21 07:33] LABS: SCAN/DIFF AUTO DIFF CONFIRMED
[2016-05-21] MEDS: BUDESONIDE-FORMOTEROL 160/4.5 MCG INHALER INH SCH ×2 (08:32→21:14)
[2016-05-21] MEDS: TIOTROPIUM BROMIDE 18 MCG INH INH SCH (08:32)
[2016-05-21] MEDS: TAMSULOSIN HCL 0.4 MG CAP PO SCH (08:34)
[2016-05-21] MEDS: buPROPion HCL 150 MG SUSTAINED RELEASE TAB PO SCH ×2 (08:34→21:15)
[2016-05-21] MEDS: ACYCLOVIR 200 MG CAP PO SCH ×2 (08:34→21:16)
[2016-05-21] MEDS: FAMOTIDINE 20 MG TAB PO SCH ×2 (08:34→21:16)
[2016-05-21] MEDS: ASPIRIN EC 325 MG TABEC PO SCH (08:34)
[2016-05-21] MEDS: LOSARTAN 50 MG TAB PO SCH (08:34)
[2016-05-21] MEDS: PRAVASTATIN SOD 40 MG TAB PO SCH (08:34)
[2016-05-21] MEDS: SODIUM CHLOR 0.9% 1000 ML INJ 1,000 ML IV SCH (08:36)
--- NOTE | 2016-05-21 09:04 | HHI.PR ---
Subjective Remarks Follow-up Follow-up sepsis/toxic metabolic encephalopathy /history of ITP 05/21/16-shift and examined, alert and oriented 3. Complains of neck pain and reports some dysphagia with solid food. Currently afebrile. Platelet count 131 Objective Vitals Vital Signs Date Time Temp Pulse Resp B/P Pulse Ox O2 Delivery O2 Flow Rate FiO2 05/21/16 08:00 98.2 76 22 135/78 97 05/21/16 04:00 97.9 87 20 135/75 99 05/21/16 00:00 96.4 85 20 139/75 95 05/20/16 21:00 94 Nasal Cannula 3.00 05/20/16 20:00 97.3 84 20 142/65 96 05/20/16 20:00 71 05/20/16 20:00 96 Nasal Cannula 2.00 05/20/16 16:00 98.1 81 20 119/63 96 05/20/16 12:00 98.1 99 22 132/71 95 I/O 05/20/16 05/20/16 05/20/16 05/21/16 05/21/16 05/21/16 07:00 15:00 23:00 07:00 15:00 23:00 Intake Total 1000 ml 1263 ml 863 ml Balance 1000 ml 1263 ml 863 ml Intake Oral 1000 ml 180 ml 240 ml IV Total 1083 ml 623 ml # Voids 5 0 1 # Bowel Movements 0 1 Result Diagram: 05/21/16 0605 05/21/16 0605 Imaging Last Impressions Head CT 05/19/161919 Signed Impressions: Service Date/Time: Thursday, May 19, 2016 20:13 - CONCLUSION: Unremarkable exam for age Vaughn Torres MD Chest X-Ray 05/19/161919 Signed Impressions: Service Date/Time: Thursday, May 19, 2016 19:34 - CONCLUSION: No acute disease. No significant change has occurred. Adi Ralph MD Soft Tissue Neck X-Ray 05/19/16 0000 Signed Impressions: Service Date/Time: Thursday, May 19, 2016 19:34 - CONCLUSION: Limited plain films of the cervical spine. There are bony degenerative changes noted involving the cervical spine especially on the AP view. Adi Ralph MD A/P Problem List: (1) Sepsis ICD Code: A41.9 Status: Resolved (2) Toxic metabolic encephalopathy ICD Code: G92 Status: Resolved (3) HTN (hypertension) ICD Code: I10 Status: Chronic (4) Dyslipidemia ICD Code: E78.5 Status: Chronic (5) GERD (gastroesophageal reflux disease) ICD Code: K21.9 Status: Chronic (6) Dependence on supplemental oxygen ICD Code: Z99.81 Status: Chronic (7) COPD (chronic obstructive pulmonary disease) ICD Code: J44.9 Status: Chronic (8) Neck pain ICD Code: M54.2 Status: Acute Assessment and Plan 71-year-old man with Sepsis: Resolved,currently on empiric Zosyn pending culture reports. However antibiotics if blood culture negative 2 days Toxic metabolic encephalopathy: Soft tissue x-ray, head CT, chest x-ray all review by me without any acute finding. Encephalopathy resolved. UA, chest x- ray negative. Continue to hold all CERTIFIED INDOOR ENVIRONMENTALIST depressant medication including all narcotics. Neck pain:Soft tissue neck x-ray negative however patient continued to have pain and swelling, therefore will order a CT neck today History of ITP: Patient status post splenectomy and now with tumor thrombocytopenia, will consult hematology in today 05/21/16 History of COPD on 2 L nasal cannula: NO current exacerbation; continue outpatient medications and maintain oxygen saturation above 92%. Hypertension - Continue patient's home med (ARB). Dyslipidemia - continue Statin. GERD - continue home Ranitidine. Dependence on supplemental oxygen: Continue with 2 L nasal cannula Problem Qualifiers (1) Sepsis: Qualified Code: A41.9 - Sepsis, due to unspecified organism Manuel Armendariz MD May 21, 2016 09:04
[2016-05-21] MEDS ORDERED: IOHEXOL 350 MG/ML 10 ML VIAL (for RAD DIAG) IV ONE (10:15)
--- NOTE | 2016-05-21 10:52 | RADHPO ---
EXAM DATE/TIME: 05/21/2016 09:59 [facility] COMPARISON: No previous studies available for comparison. INDICATIONS : Non specific neck pain and swelling. Evaluate for abscess. IV CONTRAST: 75 cc Omnipaque 350 (iohexol) IV RADIATION DOSE: 22.54 CTDIvol (mGy) MEDICAL HISTORY : Hypertension. Carcinoma, prostate. Chronic obstructive pulmonary disease. SURGICAL HISTORY : Mastoid/right ear drum replaced 1996. Orthopedic surgery. ENCOUNTER: Initial ACUITY: 3 days PAIN SCALE: 4/10 LOCATION: Bilateral neck TECHNIQUE: Volumetric scanning of the neck was performed. Using automated exposure control and adjustment of th e mA and/or kV according to patient size, radiation dose was kept as low as reasonably achievable to obtain optimal diagnostic quality images. FINDINGS: There is mild soft tissue induration in the right neck. I do not see an abscess. There is minimal n onspecific adenopathy present. The nasopharynx and oropharynx are unremarkable. The region of true vocal cords appears symmetric without mass. Low neck is unremarkable. CONCLUSION: 1. Nonspecific induration in the right neck without abscess. 2. Nonspecific adenopathy is present. Neto Sparks MD FACR on May 21, 2016 at 10:36 Board Certified Radiologist. This report was verified electronically.
[2016-05-22] VITALS (7 sets, daily range): BP systolic 144–177; BP diastolic 72–93; PULSE 74–88; RESP 20–26; TEMP 96.8–99.4; O2SAT 93–97
[2016-05-22] MEDS ORDERED: PHARMACY ORDERED LAB XX ONE (00:45)
[2016-05-22] MEDS: VANCOMYCIN INJ 2,300 MG in SODIUM CHLORID 0.9% 500 ML INJ 500 ML IV SCH (01:41)
[2016-05-22] MEDS: SODIUM CHLORIDE 0.9% FLUSH 5 ML FLUSH IVF PRN ×2 (03:39→22:15)
[2016-05-22] MEDS: PIPERACIL-TAZO 3.375 GM PREMIX 50 ML IV SCH ×4 (03:39→21:00)
--- NOTE | 2016-05-22 06:14 | MB ---
cc: EDMUND SEN ABDUL J. M.D. DATE OF CONSULTATION 05/21/2016 REASON FOR CONSULTATION Consult requested by Dr. Sen for evaluation of thrombocytopenia. HISTORY OF PRESENT ILLNESS Ray is a 71-year-old male. He has a history of ITP which was treated previously with prednisone. However, the patient had failed the steroid and underwent splenectomy by Dr. Braun last June. The patient is under the care of Dr. Kraus for his ITP. The patient states that even after the splenectomy he remains very thrombocytopenic. He stated that his platelet count was as low as only 3000. The patient has been getting Nplate whenever his platelet count is low. The patient states that he gets CBC every week at Dr. Kraus's office. Whenever his platelet count is low, he gets the Nplate. The patient is admitted to the hospital with acute change in mental status. Sepsis was suspected and he is getting antibiotics. His white count was elevated at 22.9 on admission two days ago. Hemoglobin was 15, platelet count was 251. The differential count was significant for neutrophilia with absolute neutrophil count of 20.4 and monocytosis of 2.5. He also had 5% bandemia. With the antibiotic, his white count yesterday had been up to 29 and today it came down to 18.5. Hemoglobin was 13.1; his platelet count yesterday was 194 and today is 131. The patient is not bleeding. His blood cultures so far are negative. His chest x-ray is negative. Influenza nasal aspirate is negative as well. The patient is now awake, alert, oriented x 3. He is complaining of joint pains and neck pain which is chronic. He had a CAT scan of the head which is negative. He also has a CAT scan of the soft tissue neck which shows nonspecific induration in the right neck without abscess. No lymphadenopathy noted. The patient states that his neck was swollen and it is now improving. The rest of the review of systems is negative. PAST MEDICAL HISTORY 1. ITP. 2. Prostate cancer. 3. Hypertension. 4. Anxiety disorder. 5. Depression. 6. COPD. PAST SURGICAL HISTORY 1. Bilateral shoulder surgery. 2. Tonsillectomy. 3. Splenectomy in June of last year. ALLERGIES None. MEDICATIONS 1. Rapaflo. 2. Ranitidine. 3. Pravastatin. 4. Avapro. 5. [place]. 6. Restasis eye drops. 7. Celebrex. 8. Bupropion. 9. Symbicort. 10. Aspirin. 11. Ventolin inhaler. 12. Acyclovir. FAMILY HISTORY Mother had cancer. Father from leukemia. SOCIAL HISTORY The patient used to smoke cigarettes, quit a long time ago. He does not drink alcohol. PHYSICAL EXAMINATION GENERAL: This is a well-developed, well-nourished elderly white male in no apparent distress. VITAL SIGNS: Temperature 96.5, heart rate is 99, blood pressure 138/68. HEENT: PERRLA, EOMI, anicteric. No oral lesions are noted. NECK: Supple. LYMPHATICS: There is no cervical, supraclavicular or axillary lymphadenopathy noted. LUNGS: Clear. No wheezing, rhonchi or rales. HEART: Regular rate and rhythm. ABDOMEN: Soft, nontender. No hepatosplenomegaly. EXTREMITIES: No pedal edema. NEUROLOGY: Awake, alert, oriented x 3. SKIN: No significant lesions are noted. ASSESSMENT 1. History of ITP status post splenectomy in June of 2015. The patient is now on Nplate. 2. Mild thrombocytopenia, most likely due to the sepsis. 3. Metabolic encephalopathy most likely due to sepsis. 4. Sepsis syndrome on antibiotics. PLAN I have reviewed his available records and I have discussed with the patient regarding the thrombocytopenia. The patient has been treated with steroids for ITP. He had a relapsed once the prednisone was tapered down. He underwent splenectomy last year June by Dr. Braun. Unfortunately, the splenectomy did not work and now he is on Nplate under the care of Dr. Kraus. When the patient came into the hospital two days ago his platelet count was 251, yesterday it was 194 and today it is 131. The drop is most likely due to sepsis syndrome. We will keep a close eye on his platelet count. If his platelet count drops below 50,000, then we will give him Nplate. The patient stated that usually he gets the Nplate every Thursday. He missed his dose yesterday as he is in the hospital. The patient has been on the antibiotics, Zosyn and vancomycin. These antibiotics also sometimes can cause thrombocytopenia. His blood cultures are negative so far, the nasal aspirate for flu is negative as well. The chest x-ray is negative. My recommendation is to monitor his CBC daily and keep a close eye on his platelets. Further recommendations are based on his hospital stay. Thank you for asking my opinion. Rachel Carlton MD /SSB /11:29 PM /5:51 AM MTDAngela
[2016-05-22 06:43] LABS: AUTOMATED NEUTROPHIL # 12.1 TH/MM3 (1.8-7.7); BASOPHIL # 0.2 TH/MM3 (0-0.2); BASOPHIL % 1.4 % (0.0-2.0); EOSINOPHIL # 0.4 TH/MM3 (0-0.4); EOSINOPHIL % 2.3 % (0.0-4.0); HEMATOCRIT 38.6 % (39.0-51.0); LYMPH % 10.2 % (9.0-44.0); LYMPHOCYTE # 1.7 TH/MM3 (1.0-4.8); MEAN CELL VOLUME 94.9 FL (80.0-100.0); MEAN CORPUSCULAR HEMOGLOBIN 31.3 PG (27.0-34.0); MONO % 13.7 % (0.0-8.0); NEUT % 72.4 % (16.0-70.0); PLATELET COUNT 124 TH/MM3 (150-450); RED BLOOD COUNT 4.07 MIL/MM3 (4.50-5.90); RED CELL DISTRIBUTION WIDTH 13.9 % (11.6-17.2); WHITE BLOOD COUNT 16.7 TH/MM3 (4.0-11.0)
[2016-05-22 06:51] LABS: HEMO FLAGS AUTO DIFF
[2016-05-22 07:18] LABS: BANDS 1 % (0-6); EOSINOPHILS 3 % (0-4); NEUTROPHIL # MANUAL DIFF 12.5 TH/MM3 (1.8-7.7); POLYS (SEG NEUTROPHILS) 74 % (16-70); SCAN/DIFF FINAL DIFF MANUAL; WBC DIFF SAMPLE 100
[2016-05-22] MEDS: BUDESONIDE-FORMOTEROL 160/4.5 MCG INHALER INH SCH ×2 (10:51→22:14)
[2016-05-22] MEDS: TIOTROPIUM BROMIDE 18 MCG INH INH SCH (10:52)
[2016-05-22] MEDS: ASPIRIN EC 325 MG TABEC PO SCH (10:54)
[2016-05-22] MEDS: TAMSULOSIN HCL 0.4 MG CAP PO SCH (10:54)
[2016-05-22] MEDS: ACYCLOVIR 200 MG CAP PO SCH ×2 (10:54→22:14)
[2016-05-22] MEDS: PRAVASTATIN SOD 40 MG TAB PO SCH (10:55)
[2016-05-22] MEDS: LOSARTAN 50 MG TAB PO SCH (10:55)
[2016-05-22] MEDS: buPROPion HCL 150 MG SUSTAINED RELEASE TAB PO SCH ×2 (10:55→22:15)
[2016-05-22] MEDS: FAMOTIDINE 20 MG TAB PO SCH ×2 (10:55→22:15)
[2016-05-22] MEDS ORDERED: Vancomycin Consult Pharmacy 1 EA OTHER SCH (14:15)
[2016-05-22] MEDS ORDERED: MIRA50TA PO (15:33)
[2016-05-22] MEDS ORDERED: RAPA8CAP PO (15:33)
[2016-05-22] MEDS ORDERED: ENALAPRILAT 1.25 MG/ML VIAL IV PUSH PRN (18:30)
--- NOTE | 2016-05-22 18:35 | HHI.PR ---
Subjective Remarks Patient resting in bed, and daughter at the bedside They will have numerous questions mainly they are concerned about platelet count , the patient think he will bleed soon, he did say he had nosebleed earlier today He want to know what can be our management his platelet drop Patient wants the house pallet assembler to continue same management his own pallet assembler does regarding ITP Patient told me he had swelling nodes in his neck when he first came, the daughter asked about the source of the infection I explained that it could be viral Objective Vitals Vital Signs Date Time Temp Pulse Resp B/P Pulse Ox O2 Delivery O2 Flow Rate FiO2 05/22/16 16:00 96.8 78 20 144/85 97 05/22/16 14:21 Nasal Cannula 3.00 05/22/16 12:00 98.5 88 22 163/72 95 05/22/16 08:00 98.7 74 20 154/73 96 05/22/16 08:00 96 Nasal Cannula 2.00 05/22/16 04:00 98.9 87 22 156/80 95 05/22/16 00:00 99.4 88 26 174/81 93 05/21/16 20:19 93 Nasal Cannula 3.00 05/21/16 20:00 92 05/21/16 20:00 100.0 98 22 181/74 98 05/21/16 20:00 98 Nasal Cannula 3.00 I/O 05/21/16 05/21/16 05/21/16 05/22/16 05/22/16 05/22/16 07:00 15:00 23:00 07:00 15:00 23:00 Intake Total 863 ml 1100 ml 1630 ml 871 ml 500 ml Balance 863 ml 1100 ml 1630 ml 871 ml 500 ml Intake Oral 240 ml 1100 ml 480 ml 120 ml 500 ml IV Total 623 ml 1150 ml 751 ml # Voids 1 2 2 4 # Bowel Movements 1 2 1 1 Result Diagram: 05/22/16 0629 05/21/16 0605 Objective Remarks GENERAL: This is a well-nourished, obese well-developed patient, in no apparent distress. SKIN: Multiple ecchymosis on the upper extremity HEAD: Atraumatic. Normocephalic. EYES: Pupils equal round and reactive. Extraocular motions intact. No scleral icterus. ENT: Nose without bleeding, or drainage, Airway patent. NECK: Trachea midline. Supple CARDIOVASCULAR: Regular rate and rhythm without murmurs, gallops, or rubs. RESPIRATORY: Fair air entry bilaterally. No wheezes, rales, or rhonchi. GASTROINTESTINAL: Abdomen soft, non-tender, nondistended. Positive bowel sounds MUSCULOSKELETAL: Extremities without clubbing, cyanosis, or edema. Pedal pulses appreciated NEUROLOGICAL: Awake and alert. Moves all extremity. Normal speech.no focal neurological deficit A/P Problem List: (1) Sepsis ICD Code: A41.9 Status: Resolved (2) Toxic metabolic encephalopathy ICD Code: G92 Status: Resolved (3) HTN (hypertension) ICD Code: I10 Status: Chronic (4) Dyslipidemia ICD Code: E78.5 Status: Chronic (5) GERD (gastroesophageal reflux disease) ICD Code: K21.9 Status: Chronic (6) Dependence on supplemental oxygen ICD Code: Z99.81 Status: Chronic (7) COPD (chronic obstructive pulmonary disease) ICD Code: J44.9 Status: Chronic (8) Neck pain ICD Code: M54.2 Status: Acute Assessment and Plan 05/22/16: Consult ID, continue monitoring platelet and CBC, follow hematology recommendation Lengthy extensive discussion with the family and the patient regarding his situation explaining about pathophysiology, sepsis criteria on others All their question has been answered to satisfaction Blood pressure still not optimized will add Vasotec as needed Time spent 55 minutes 71-year-old man with Sepsis with cervical lymphadenopathy(per the patient): Improved,currently on empiric Zosyn and vancomycin, insulins a and B negative-, blood culture show no growth so far. Questionable viral, ID consulted Toxic metabolic encephalopathy: Soft tissue x-ray, head CT, chest x-ray all review by me without any acute finding. Encephalopathy resolved. UA, chest x- ray negative. Continue to hold all LEAD SOFTWARE DEVELOPER depressant medication including all narcotics. Neck pain: Improved Soft tissue neck x-ray negative , CT neck showed nonspecific induration and lymphadenopathy, possible viral infection, patient is asplenic, ID consult History of ITP: Patient status post splenectomy and now with tumor thrombocytopenia, hematology consulted, appreciate their input, continue monitoring platelet History of COPD on 2 L nasal cannula: NO current exacerbation; continue outpatient medications and maintain oxygen saturation above 92%. Hypertension - Continue patient's home med (ARB). Dyslipidemia - continue Statin. GERD - continue home Ranitidine. Dependence on supplemental oxygen: Continue with 2 L nasal cannula Problem Qualifiers (1) Sepsis: Qualified Code: A41.9 - Sepsis, due to unspecified organism Janneth Amos MD May 22, 2016 18:34
[2016-05-22] MEDS: VANCOMYCIN INJ 2,000 MG in SODIUM CHLORID 0.9% 500 ML INJ 500 ML IV SCH (18:37)
[2016-05-22] MEDS: ACETAMINOPHEN/HYDROcodone 325 MG/10 MG TAB PO PRN (18:53)
--- NOTE | 2016-05-22 18:56 | PD.ONC.PN ---
Subjective Subjective Remarks feels better, no new c/o Objective Data Date Time Temp Pulse Resp B/P Pulse Ox O2 Delivery O2 Flow Rate FiO2 05/22/16 16:00 96.8 78 20 144/85 97 05/22/16 14:21 Nasal Cannula 3.00 05/22/16 12:00 98.5 88 22 163/72 95 05/22/16 08:00 98.7 74 20 154/73 96 05/22/16 08:00 96 Nasal Cannula 2.00 05/22/16 04:00 98.9 87 22 156/80 95 05/22/16 00:00 99.4 88 26 174/81 93 05/21/16 20:19 93 Nasal Cannula 3.00 05/21/16 20:00 92 05/21/16 20:00 100.0 98 22 181/74 98 05/21/16 20:00 98 Nasal Cannula 3.00 05/22/16 05/22/16 05/22/16 07:00 15:00 23:00 Intake Total 871 ml 500 ml Balance 871 ml 500 ml Result Diagram: 05/22/16 0629 05/21/16 0605 Laboratory Results Laboratory Tests Test 05/22/16 05/22/16 01:25 06:29 C-Reactive Protein 9.20 MG/DL Vancomycin Level Trough 24.5 MCG/ML White Blood Count 16.7 TH/MM3 Red Blood Count 4.07 MIL/MM3 Hemoglobin 12.8 GM/DL Hematocrit 38.6 % Mean Corpuscular Volume 94.9 FL Mean Corpuscular Hemoglobin 31.3 PG Mean Corpuscular Hemoglobin 33.0 % Concent Red Cell Distribution Width 13.9 % Platelet Count 124 TH/MM3 Mean Platelet Volume 9.6 FL Neutrophils (%) (Auto) 72.4 % Lymphocytes (%) (Auto) 10.2 % Monocytes (%) (Auto) 13.7 % Eosinophils (%) (Auto) 2.3 % Basophils (%) (Auto) 1.4 % Neutrophils # (Auto) 12.1 TH/MM3 Lymphocytes # (Auto) 1.7 TH/MM3 Monocytes # (Auto) 2.3 TH/MM3 Eosinophils # (Auto) 0.4 TH/MM3 Basophils # (Auto) 0.2 TH/MM3 CBC Comment AUTO DIFF Differential Total Cells 100 Counted Neutrophils % (Manual) 74 % Band Neutrophils % 1 % Lymphocytes % 16 % Monocytes % 6 % Eosinophils % 3 % Neutrophils # (Manual) 12.5 TH/MM3 Differential Comment FINAL DIFF MANUAL Erythrocyte Sedimentation Rate 33 mm/hr Culture Results Microbiology Date/Time Procedure Status Source Growth 05/19/16 19:50 Aerobic Blood Culture - Preliminary Resulted Blood Peripheral NO GROWTH IN 3 DAYS 05/19/16 19:50 Anaerobic Blood Culture - Preliminary Resulted Blood Peripheral NO GROWTH IN 3 DAYS 05/19/16 20:00 Aerobic Blood Culture - Preliminary Resulted Blood Peripheral NO GROWTH IN 3 DAYS 05/19/16 20:00 Anaerobic Blood Culture - Preliminary Resulted Blood Peripheral NO GROWTH IN 3 DAYS 05/19/16 23:10 Influenza Types A,B Antigen (HERACLIO) - Final Complete Nasal Aspirate NEGATIVE FOR FLU A AND B ANTIGEN.... Administered Medications Medications (Trade) Dose Ordered Sig/Cortney Route PRN Reason Start Time Stop Time Status Last Admin Dose Admin IV Flush 2 ml 2 ml UNSCH PRN IVF FLUSH AFTER USING IV ACCESS 05/19/16 19:30 05/22/16 03:39 Sodium Chloride (NS 1000 ml Inj) 1,000 ml @ 40 mls/hr Q24H IV 05/19/16 22:52 05/21/16 08:36 Acetaminophen 650 mg 650 mg Q4H PRN PO TEMP > 100.4, pain 1 - 5 05/19/16 23:00 05/19/16 23:33 Piperacillin Sod/ Tazobactam Sod (Zosyn 3.375 Gm Premix) 50 ml @ 100 mls/hr Q6H IV 05/20/16 03:00 05/22/16 15:22 Acyclovir (Zovirax) 400 mg BID PO 05/20/16 09:00 05/22/16 10:54 Aspirin (Ecotrin Ec) 325 mg DAILY PO 05/20/16 09:00 05/22/16 10:54 Budesonide/ Formoterol Fumarate (Symbicort 160-4.5 Inh) 2 puff Q12HR INH 05/20/16 09:00 05/22/16 10:51 Bupropion HCl (Wellbutrin Sr) 150 mg BID PO 05/20/16 09:15 05/22/16 10:55 Pravastatin Sodium (Pravachol) 40 mg DAILY PO 05/20/16 09:00 05/22/16 10:55 Famotidine (Pepcid) 20 mg BID PO 05/20/16 09:15 05/22/16 10:55 Tiotropium [place] (Spiriva Inh) 18 mcg DAILY INH 05/20/16 09:00 05/22/16 10:52 Losartan Potassium (Cozaar) 100 mg DAILY PO 05/20/16 09:30 05/22/16 10:55 Tamsulosin HCl 0.4 mg 0.4 mg DAILY PO 05/20/16 09:15 05/22/16 10:54 Vancomycin HCl/ Sodium Chloride (Vancomycin Inj/ NS 500 ml Inj) 520 ml @ 250 mls/hr DAILY@06,18 IV 05/22/16 18:00 05/22/16 18:37 Objective Remarks GENERAL: Well-nourished, well-developed patient. SKIN: Warm and dry. HEAD: Normocephalic. EYES: No scleral icterus. No injection or drainage. NECK: Supple, trachea midline. No JVD or lymphadenopathy. LYMPHATIC: No adenopathy. CARDIOVASCULAR: Regular rate and rhythm without murmurs. RESPIRATORY: Breath sounds equal bilaterally. No accessory muscle use. GASTROINTESTINAL: Abdomen soft, non-tender, nondistended. EXTREMITIES: No cyanosis, or edema. NEUROLOGICAL: No obvious focal deficit. Awake, alert, and oriented x3. Assessment/Plan Problem List: (1) Toxic metabolic encephalopathy Status: Resolved Plan: improving (2) Sepsis Status: Resolved Plan: on a/b (3) Chronic ITP (idiopathic thrombocytopenia) Status: Acute Plan: plat are coming down. will give N-Plate if plat are <50K. Problem Qualifiers (1) Sepsis: Qualified Code: A41.9 - Sepsis, due to unspecified organism Yvonne Carlton MD May 22, 2016 18:56
--- NOTE | 2016-05-22 21:15 | PD.ONC.PN ---
Subjective Subjective Remarks Mr. Brizuela denies acute complaints, he expresses anxiety about a potential rapid decline in his platelets. He tells me that even though his platelets are over 100,000 today, they can rapidly drop to less than 10,000 with him today. He tells me that his been over 1 week since he received his last dose of Nplate. Overall he feels somewhat improved and thinks he may be able to go home tomorrow if he is allowed to. Objective Data Date Time Temp Pulse Resp B/P Pulse Ox O2 Delivery O2 Flow Rate FiO2 05/22/16 20:02 97 Nasal Cannula 2.00 05/22/16 16:00 96.8 78 20 144/85 97 05/22/16 14:21 Nasal Cannula 3.00 05/22/16 12:00 98.5 88 22 163/72 95 05/22/16 08:00 98.7 74 20 154/73 96 05/22/16 08:00 96 Nasal Cannula 2.00 05/22/16 04:00 98.9 87 22 156/80 95 05/22/16 00:00 99.4 88 26 174/81 93 05/22/16 05/22/16 05/22/16 07:00 15:00 23:00 Intake Total 871 ml 1225 ml Balance 871 ml 1225 ml Result Diagram: 05/22/16 0629 05/21/16 0605 Laboratory Results Laboratory Tests Test 05/22/16 05/22/16 01:25 06:29 C-Reactive Protein 9.20 MG/DL Vancomycin Level Trough 24.5 MCG/ML White Blood Count 16.7 TH/MM3 Red Blood Count 4.07 MIL/MM3 Hemoglobin 12.8 GM/DL Hematocrit 38.6 % Mean Corpuscular Volume 94.9 FL Mean Corpuscular Hemoglobin 31.3 PG Mean Corpuscular Hemoglobin 33.0 % Concent Red Cell Distribution Width 13.9 % Platelet Count 124 TH/MM3 Mean Platelet Volume 9.6 FL Neutrophils (%) (Auto) 72.4 % Lymphocytes (%) (Auto) 10.2 % Monocytes (%) (Auto) 13.7 % Eosinophils (%) (Auto) 2.3 % Basophils (%) (Auto) 1.4 % Neutrophils # (Auto) 12.1 TH/MM3 Lymphocytes # (Auto) 1.7 TH/MM3 Monocytes # (Auto) 2.3 TH/MM3 Eosinophils # (Auto) 0.4 TH/MM3 Basophils # (Auto) 0.2 TH/MM3 CBC Comment AUTO DIFF Differential Total Cells 100 Counted Neutrophils % (Manual) 74 % Band Neutrophils % 1 % Lymphocytes % 16 % Monocytes % 6 % Eosinophils % 3 % Neutrophils # (Manual) 12.5 TH/MM3 Differential Comment FINAL DIFF MANUAL Erythrocyte Sedimentation Rate 33 mm/hr Culture Results Microbiology Date/Time Procedure Status Source Growth 05/19/16 23:10 Influenza Types A,B Antigen (HERACLIO) - Final Complete Nasal Aspirate NEGATIVE FOR FLU A AND B ANTIGEN.... Administered Medications Medications (Trade) Dose Ordered Sig/Cortney Route PRN Reason Start Time Stop Time Status Last Admin Dose Admin IV Flush 2 ml 2 ml UNSCH PRN IVF FLUSH AFTER USING IV ACCESS 05/19/16 19:30 05/22/16 03:39 Sodium Chloride (NS 1000 ml Inj) 1,000 ml @ 40 mls/hr Q24H IV 05/19/16 22:52 05/21/16 08:36 Acetaminophen 650 mg 650 mg Q4H PRN PO TEMP > 100.4, pain 1 - 5 05/19/16 23:00 05/19/16 23:33 Piperacillin Sod/ Tazobactam Sod (Zosyn 3.375 Gm Premix) 50 ml @ 100 mls/hr Q6H IV 05/20/16 03:00 05/22/16 15:22 Acyclovir (Zovirax) 400 mg BID PO 05/20/16 09:00 05/22/16 10:54 Aspirin (Ecotrin Ec) 325 mg DAILY PO 05/20/16 09:00 05/22/16 10:54 Budesonide/ Formoterol Fumarate (Symbicort 160-4.5 Inh) 2 puff Q12HR INH 05/20/16 09:00 05/22/16 10:51 Bupropion HCl (Wellbutrin Sr) 150 mg BID PO 05/20/16 09:15 05/22/16 10:55 Pravastatin Sodium (Pravachol) 40 mg DAILY PO 05/20/16 09:00 05/22/16 10:55 Famotidine (Pepcid) 20 mg BID PO 05/20/16 09:15 05/22/16 10:55 Tiotropium [place] (Spiriva Inh) 18 mcg DAILY INH 05/20/16 09:00 05/22/16 10:52 Losartan Potassium (Cozaar) 100 mg DAILY PO 05/20/16 09:30 05/22/16 10:55 Tamsulosin HCl 0.4 mg 0.4 mg DAILY PO 05/20/16 09:15 05/22/16 10:54 Vancomycin HCl/ Sodium Chloride (Vancomycin Inj/ NS 500 ml Inj) 520 ml @ 250 mls/hr DAILY@,18 IV 05/22/16 18:00 05/22/16 18:37 Acetaminophen/ Hydrocodone Bitart ([place] 10-325 Mg) 1 tab Q6H PRN PO PAIN SCALE 6 TO 10 05/22/16 18:45 05/22/16 18:53 Objective Remarks GENERAL: Elderly male, sitting up in bed, appears to be no acute distress, watching television. SKIN: Warm and dry. Small bruises over the upper extremities. HEAD: Normocephalic. EYES: No scleral icterus. No injection or drainage. NECK: Supple, trachea midline. No JVD or lymphadenopathy. LYMPHATIC: No adenopathy. CARDIOVASCULAR: Regular rate and rhythm without murmurs. RESPIRATORY: Breath sounds equal bilaterally. No accessory muscle use. Decreased bibasilar breath sounds. GASTROINTESTINAL: Abdomen soft, non-tender, nondistended. EXTREMITIES: No cyanosis, or edema. MUSCULOSKELETAL: Adequate muscle tone. NEUROLOGICAL: No obvious focal deficit. Awake, alert, and oriented x3. PSYCHIATRIC: Appropriate mood and affect; insight and judgment normal. Assessment/Plan Problem List: (1) Toxic metabolic encephalopathy Status: Resolved Plan: improving (2) Sepsis Status: Resolved Plan: Antibiotics. (3) Chronic ITP (idiopathic thrombocytopenia) Status: Acute Plan: Chronic ITP, status post splenectomy. His disease tends not to respond to corticosteroids. He has been on a thrombopoietin analog as an outpatient; Nplate weekly dosing. Primary embedded processor is Dr. Mckay Kraus with [facility]. At present he is not overtly bleeding, platelet counts remain over 100,000. I would recommend continued monitoring, should his platelet counts drop precipitously as the patient suggests they do during her acute illness. I would recommend treating him with rescue IVIG as well as corticosteroids. His platelet counts are critically low i.e. less than 15,000 a platelet transfusion would also be justified. Assessment 71-year-old male with chronic ITP status post splenectomy, refractory to corticosteroids. Presents with toxic metabolic encephalopathy/sepsis. Platelet counts have decreased by 50% over the course of hospitalization; 250 down to 125. Plan 1. ITP: Continue monitoring. Please call the hematology service at extension [phone] to report any precipitous drops and platelet counts either tomorrow or over the weekend. Should his platelet counts stay stable he is cleared for discharge when cleared by the primary team. He knows to resume follow-up with his primary embedded processor upon discharge. Problem Qualifiers (1) Sepsis: Qualified Code: A41.9 - Sepsis, due to unspecified organism Chuck Love MD May 22, 2016 21:15
[2016-05-22] MEDS: SODIUM CHLOR 0.9% 1000 ML INJ 1,000 ML IV SCH (22:15)
[2016-05-23] VITALS (9 sets, daily range): BP systolic 135–186; BP diastolic 74–84; PULSE 72–100; RESP 17–22; TEMP 95.9–97.6; O2SAT 90–97
[2016-05-23] MEDS: ACETAMINOPHEN/HYDROcodone 325 MG/10 MG TAB PO PRN ×4 (01:59→21:18)
[2016-05-23] MEDS: SODIUM CHLORIDE 0.9% FLUSH 5 ML FLUSH IVF PRN (03:33)
[2016-05-23] MEDS: PIPERACIL-TAZO 3.375 GM PREMIX 50 ML IV SCH ×4 (03:33→21:05)
[2016-05-23 06:17] LABS: HEMATOCRIT 37.3 % (39.0-51.0); MEAN CELL VOLUME 95.8 FL (80.0-100.0); MEAN CORPUSCULAR HEMOGLOBIN 31.6 PG (27.0-34.0); MEAN CORPUSCULAR HGB CONC 32.9 % (32.0-36.0); PLATELET COUNT 104 TH/MM3 (150-450); RED BLOOD COUNT 3.89 MIL/MM3 (4.50-5.90); RED CELL DISTRIBUTION WIDTH 14.6 % (11.6-17.2); WHITE BLOOD COUNT 12.8 TH/MM3 (4.0-11.0)
[2016-05-23 06:20] LABS: POTASSIUM 3.7 MEQ/L (3.5-5.1)
[2016-05-23 06:24] LABS: BICARBONATE 26.4 MEQ/L (21.0-32.0)
[2016-05-23 06:26] LABS: HEMO FLAGS AUTO DIFF
[2016-05-23] MEDS: VANCOMYCIN INJ 2,000 MG in SODIUM CHLORID 0.9% 500 ML INJ 500 ML IV SCH (06:30)
[2016-05-23 07:15] LABS: BANDS 3 % (0-6); CORRECTED NUCLEATED RBC 1 /100 WBC (0-0); EOSINOPHILS 8 % (0-4); HOWELL-JOLLY BODIES PRESENT (NONE SEEN); NEUTROPHIL # MANUAL DIFF 7.8 TH/MM3 (1.8-7.7); POLYS (SEG NEUTROPHILS) 58 % (16-70); WBC DIFF SAMPLE 100
[2016-05-23 07:16] LABS: PLATELET ESTIMATE SMEAR LOW (NORMAL); PLATELET MORPHOLOGY NORMAL (NORMAL); SCAN/DIFF FINAL DIFF MANUAL
[2016-05-23] MEDS: BUDESONIDE-FORMOTEROL 160/4.5 MCG INHALER INH SCH ×2 (08:46→21:05)
[2016-05-23] MEDS: TIOTROPIUM BROMIDE 18 MCG INH INH SCH (08:46)
[2016-05-23] MEDS: LOSARTAN 50 MG TAB PO SCH (08:51)
[2016-05-23] MEDS: PRAVASTATIN SOD 40 MG TAB PO SCH (08:51)
[2016-05-23] MEDS: TAMSULOSIN HCL 0.4 MG CAP PO SCH (08:51)
[2016-05-23] MEDS: buPROPion HCL 150 MG SUSTAINED RELEASE TAB PO SCH ×2 (08:51→21:06)
[2016-05-23] MEDS: ASPIRIN EC 325 MG TABEC PO SCH (08:51)
[2016-05-23] MEDS: ACYCLOVIR 200 MG CAP PO SCH ×2 (08:51→21:06)
[2016-05-23] MEDS: FAMOTIDINE 20 MG TAB PO SCH ×2 (08:51→21:06)
--- NOTE | 2016-05-23 15:03 | PD.CONS ---
History of Present Illness Service Infectious disease Consult Requested By Dr Amos Reason for Consult Evaluate patient with sepsis, unclear source Primary Care Physician Juevntino Alonzo MD Diagnoses: History of Present Illness Patient seen and examined. Records reviewed. Patient is a 71-year-old male, with known history of COPD, and ITP, brought into the hospital for further evaluation of confusion. Patient lives at home with the , and due to his underlying multiple medical problems, he has some days that he just doesn't feel well. The daughter was visiting from [place] 2 days prior to admission and she had noted that the patient was a little bit more short of breath, didn't have any energy, but she didn't think much of it because he has had days like this. The following day he looked a little bit worse, and was more short of breath. He didn't do much. And it was noted that he had a little bit of swelling on the right side of his neck. Patient however was not really having any problem as far as pain, or any swallowing difficulty, sore throat, or any congestion. On the day of admission patient had an appointment with his urologist and he recommended that patient go to his primary care physician. Patient went to his physician and from there patient was advised to go to the hospital for further evaluation and treatment. There was no fever or chills noted at home. There's been no nausea or vomiting, abdominal pain, or any urinary complaint. On admission he was admitted as sepsis. He had elevated WBC, some tachycardia, but he really did not have any fever. Chest x-ray was negative. CT of the head was negative. On the right side of his neck worsened, and the family had noted that the swelling had it involved his whole neck. CT of the neck just shows some nonspecific soft tissue swelling on the right side. Patient was put empirically on Vanco and Zosyn. His blood cultures have been negative. Urinalysis unremarkable. His WBC now is down to 12,000. The swelling on his neck has resolved. His mental status is back to baseline. There has been no recent travel. No birds in the house. He has 2 cats and a dog. Has not been around any sick kids. Infectious disease consultation is requested to evaluate the patient. Review of Systems Constitutional: COMPLAINS OF: Fatigue, DENIES: Fever, Chills, Night Sweats Eyes: DENIES: Eye pain Ears, nose, mouth, throat: COMPLAINS OF: Nasal discharge, DENIES: Oral lesions , Throat pain, Ear Pain, Epistaxis, Sinus Pain, Toothache Respiratory: COMPLAINS OF: Shortness of breath, DENIES: Cough, Sputum production Cardiovascular: COMPLAINS OF: Dyspnea on Exertion, DENIES: Chest pain, Palpitations, Syncope Gastrointestinal: DENIES: Abdominal pain, Diarrhea, Nausea, Vomiting, Difficulty Swallowing Genitourinary: DENIES: Hematuria, Dysuria Musculoskeletal: COMPLAINS OF: Back pain, DENIES: Joint pain, Joint Swelling Integumentary: DENIES: Rash Immunologic/allergic: DENIES: Urticaria Neurologic: DENIES: Headache Psychiatric: COMPLAINS OF: Confusion, DENIES: Hallucinations Past Family Social History Allergies: Coded Allergies: No Known Allergies (Verified , 05/19/16) Past Medical History ITP Prostate cancer Hypertension Anxiety depression COPD, uses home O2 Questionable history of TIA, [place]. Past Surgical History Bilateral shoulder arthroplasty Tonsillectomy Splenectomy Active Ordered Medications Tylenol Oscar Acyclovir Ecotrin Symbicort Wellbutrin Vasotec Pepcid Cozaar MOM Zofran Zosyn Pravachol Flomax Spiriva Vancomycin Social History lives at home No smoking Alcohol abuse No illicit drug use Physical Exam Vital Signs Vital Signs Date Time Temp Pulse Resp B/P Pulse Ox O2 Delivery O2 Flow Rate FiO2 05/23/16 12:59 96.4 75 18 159/84 93 05/23/16 09:56 Nasal Cannula 3.00 05/23/16 09:53 18 05/23/16 08:09 95.9 72 18 165/76 96 05/23/16 04:00 97.3 78 20 157/82 93 05/23/16 00:00 96.8 77 21 160/74 97 05/22/16 20:02 97 Nasal Cannula 2.00 05/22/16 20:00 87 05/22/16 20:00 98.1 82 20 177/93 96 05/22/16 20:00 96 Nasal Cannula 3.00 05/22/16 16:00 96.8 78 20 144/85 97 Physical Exam GENERAL: This is an obese, well-developed male, awake and alert, not in any respiratory distress. SKIN: Cool and dry. No generalized rash or ecchymosis. HEAD: Atraumatic. Normocephalic. No temporal or scalp tenderness. EYES: [place] conjunctivae. Pupils equal round and reactive. Extraocular motions intact. No scleral icterus. No injection or drainage. ENT: Nose without bleeding, or purulent drainage. Moist oral mucosa, he wears upper dentures. Throat without erythema, tonsillar hypertrophy or exudate. Uvula midline. Airway patent. NECK: Trachea midline. No JVD or lymphadenopathy. Supple, nontender, no meningeal signs. Did not appreciate any asymmetry in his neck, no lymphadenopathy. Parotid did not seem enlarged on R side. NO tenderness, no induration or erythema R side of his neck or jawline CARDIOVASCULAR: Regular rate and rhythm without murmurs, gallops, or rubs. RESPIRATORY: Clear to auscultation. Breath sounds equal bilaterally. No wheezes , rales, or rhonchi. GASTROINTESTINAL: Abdomen soft, obese, non-tender, nondistended. No guarding. Bowel sounds are present and normoactive. MUSCULOSKELETAL: Extremities without clubbing, cyanosis, or edema. No joint tenderness, effusion. No calf tenderness. Negative Homans sign bilaterally. NEUROLOGICAL: Awake and alert. Cranial nerves II through XII intact. Motor and sensory grossly within normal limits. Five out of 5 muscle strength in all muscle groups. Normal speech. PSYCH: Normal affect, calm and cooperative LINE: PIV with no evidence of infection Laboratory Laboratory Tests Test 05/23/16 05:50 White Blood Count 12.8 Red Blood Count 3.89 Hemoglobin 12.3 Hematocrit 37.3 Mean Corpuscular Volume 95.8 Mean Corpuscular Hemoglobin 31.6 Mean Corpuscular Hemoglobin 32.9 Concent Red Cell Distribution Width 14.6 Platelet Count 104 Mean Platelet Volume 9.3 Neutrophils (%) (Auto) Lymphocytes (%) (Auto) Monocytes (%) (Auto) Eosinophils (%) (Auto) Basophils (%) (Auto) Neutrophils # (Auto) Lymphocytes # (Auto) Monocytes # (Auto) Eosinophils # (Auto) Basophils # (Auto) CBC Comment AUTO DIFF Differential Total Cells 100 Counted Neutrophils % (Manual) 58 Band Neutrophils % 3 Lymphocytes % 22 Monocytes % 9 Eosinophils % 8 Neutrophils # (Manual) 7.8 Nucleated Red Blood Cells 1 Differential Comment FINAL DIFF MANUAL Platelet Estimate LOW Platelet Morphology Comment NORMAL Leonardo-Sunol Bodies PRESENT Red Cell Morphology Comment NORMAL Sodium Level 145 Potassium Level 3.7 Chloride Level 109 Carbon Dioxide Level 26.4 Anion Gap 10 Blood Urea Nitrogen 15 Creatinine 0.98 Estimat Glomerular Filtration 75 Rate Random Glucose 98 Calcium Level 8.3 Date/Time Procedure Status Source Growth 05/19/16 23:10 Influenza Types A,B Antigen (HERACLIO) - Final Complete Nasal Aspirate NEGATIVE FOR FLU A AND B ANTIGEN.... 05/19/16 20:00 Aerobic Blood Culture - Preliminary Resulted Blood Peripheral NO GROWTH IN 4 DAYS 05/19/16 20:00 Anaerobic Blood Culture - Preliminary Resulted Blood Peripheral NO GROWTH IN 4 DAYS Result Diagram: 05/23/16 0550 05/23/16 0550 Imaging RADIOLOGY STUDIES/FILMS REVIEWED Neck CT 05/21/16 0000 Signed Impressions: Service Date/Time: Saturday, May 21, 2016 09:59 - CONCLUSION: 1. Nonspecific induration in the right neck without abscess. 2. Nonspecific adenopathy is present. Neto Sparks MD FACR Head CT [id number]/19/[id number] Signed Impressions: Service Date/Time: Thursday, May 19, 2016 20:13 - CONCLUSION: Unremarkable exam for age Vaughn Torres MD Chest X-Ray [id number]/19/[id number] Signed Impressions: Service Date/Time: Thursday, May 19, 2016 19:34 - CONCLUSION: No acute disease. No significant change has occurred. Adi Ralph MD Soft Tissue Neck X-Ray 05/19/16 0000 Signed Impressions: Service Date/Time: Thursday, May 19, 2016 19:34 - CONCLUSION: Limited plain films of the cervical spine. There are bony degenerative changes noted involving the cervical spine especially on the AP view. Adi Ralph MD Assessment and Plan Assessment and Plan IMPRESSION Sepsis syndrome on admission, source? - ?early cellulitis neck, ?early parotitis - clinically much improved Known ITP, possibly worsened by infection Known COPD Encephalopathy due to sepsis, resolved RECOMMENDATION Change to Clinda and Levaquin x 7 days Rx for possible early parotitis/cellulitis neck Seems clinically much improved from ID standpoint Explained plan to daughter and answered all her questions in detail I will be available prn Please reconsult if with any new ID issue or question Helene Acosta MD May 23, 2016 15:02
[2016-05-23] MEDS: CLINDAMYCIN 150 MG CAP PO SCH ×2 (15:47→21:06)
--- NOTE | 2016-05-23 16:51 | HHI.PR ---
Subjective Remarks Stable no bleeding, discussed with the daughter and the at the bedside We will continue with hematology recommendation, mostly will do N-plate tonight No fever or chills chest pain or short of breath Objective Vitals Vital Signs Date Time Temp Pulse Resp B/P Pulse Ox O2 Delivery O2 Flow Rate FiO2 05/23/16 16:23 18 05/23/16 16:14 97.6 95 17 135/83 95 05/23/16 12:59 96.4 75 18 159/84 93 05/23/16 09:56 Nasal Cannula 3.00 05/23/16 08:09 95.9 72 18 165/76 96 05/23/16 04:00 97.3 78 20 157/82 93 05/23/16 00:00 96.8 77 21 160/74 97 05/22/16 20:02 97 Nasal Cannula 2.00 05/22/16 20:00 87 05/22/16 20:00 98.1 82 20 177/93 96 05/22/16 20:00 96 Nasal Cannula 3.00 I/O 05/22/16 05/22/16 05/22/16 05/23/16 05/23/16 05/23/16 07:00 15:00 23:00 07:00 15:00 23:00 Intake Total 871 ml 1225 ml 322 ml 599 ml 520 ml Balance 871 ml 1225 ml 322 ml 599 ml 520 ml Intake Oral 120 ml 1225 ml 240 ml 520 ml IV Total 751 ml 322 ml 359 ml # Voids 4 4 3 4 # Bowel Movements 1 2 Result Diagram: 05/23/16 0550 05/23/16 0550 Objective Remarks GENERAL: This is a well-nourished, obese well-developed patient, in no apparent distress. SKIN: Multiple ecchymosis on the upper extremity HEAD: Atraumatic. Normocephalic. EYES: Pupils equal round and reactive. Extraocular motions intact. No scleral icterus. ENT: Nose without bleeding, or drainage, Airway patent. NECK: Trachea midline. Supple CARDIOVASCULAR: Regular rate and rhythm without murmurs, gallops, or rubs. RESPIRATORY: Fair air entry bilaterally. No wheezes, rales, or rhonchi. GASTROINTESTINAL: Abdomen soft, non-tender, nondistended. Positive bowel sounds MUSCULOSKELETAL: Extremities without clubbing, cyanosis, or edema. Pedal pulses appreciated NEUROLOGICAL: Awake and alert. Moves all extremity. Normal speech.no focal neurological deficit A/P Problem List: (1) Sepsis ICD Code: A41.9 Status: Resolved (2) Toxic metabolic encephalopathy ICD Code: G92 Status: Resolved (3) HTN (hypertension) ICD Code: I10 Status: Chronic (4) Dyslipidemia ICD Code: E78.5 Status: Chronic (5) GERD (gastroesophageal reflux disease) ICD Code: K21.9 Status: Chronic (6) Dependence on supplemental oxygen ICD Code: Z99.81 Status: Chronic (7) COPD (chronic obstructive pulmonary disease) ICD Code: J44.9 Status: Chronic (8) Neck pain ICD Code: M54.2 Status: Acute Assessment and Plan 05/22/16: Consult ID, continue monitoring platelet and CBC, follow hematology recommendation Lengthy extensive discussion with the family and the patient regarding his situation explaining about pathophysiology, sepsis criteria on others All their question has been answered to satisfaction Blood pressure still not optimized will add Vasotec as needed 05/23/16: Discussed with Dr. Love, appreciate his help, will continue monitoring CBC and platelet count, n-plate if continue to decrease, ID consulted appreciated their input Change to Clinda and Levaquin x 7 days Rx for possible early parotitis/cellulitis neck Time spent 55 minutes 71-year-old man with Sepsis with cervical lymphadenopathy(per the patient): Improved,currently on empiric Zosyn and vancomycin, insulins a and B negative-, blood culture show no growth so far. Questionable viral, ID consulted appreciated their input Change to Clinda and Levaquin x 7 days Rx for possible early parotitis/cellulitis neck Toxic metabolic encephalopathy: Soft tissue x-ray, head CT, chest x-ray all review by me without any acute finding. Encephalopathy resolved. UA, chest x- ray negative. Continue to hold all CHILD & ADOLESCENT PSYCHIATRIST depressant medication including all narcotics. Neck pain: Improved Soft tissue neck x-ray negative , CT neck showed nonspecific induration and lymphadenopathy, possible viral infection, patient is asplenic, ID consult History of ITP: Patient status post splenectomy and now with tumor thrombocytopenia, hematology consulted, appreciate their input, continue monitoring platelet History of COPD on 2 L nasal cannula: NO current exacerbation; continue outpatient medications and maintain oxygen saturation above 92%. Hypertension - Continue patient's home med (ARB). Dyslipidemia - continue Statin. GERD - continue home Ranitidine. Dependence on supplemental oxygen: Continue with 2 L nasal cannula Problem Qualifiers (1) Sepsis: Qualified Code: A41.9 - Sepsis, due to unspecified organism Janneth Amos MD May 23, 2016 16:51
[2016-05-23] MEDS ORDERED: NPLATE SQ ONE (18:00)
--- NOTE | 2016-05-23 19:00 | PD.ONC.PN ---
Subjective Subjective Remarks feels better. I am going home tomorrow. Objective Data Date Time Temp Pulse Resp B/P Pulse Ox O2 Delivery O2 Flow Rate FiO2 05/23/16 16:23 18 05/23/16 16:14 97.6 95 17 135/83 95 05/23/16 12:59 96.4 75 18 159/84 93 05/23/16 09:56 Nasal Cannula 3.00 05/23/16 09:00 95 Nasal Cannula 3.00 05/23/16 08:09 95.9 72 18 165/76 96 05/23/16 04:00 97.3 78 20 157/82 93 05/23/16 00:00 96.8 77 21 160/74 97 05/22/16 20:02 97 Nasal Cannula 2.00 05/22/16 20:00 87 05/22/16 20:00 98.1 82 20 177/93 96 05/22/16 20:00 96 Nasal Cannula 3.00 05/23/16 05/23/16 05/23/16 07:00 15:00 23:00 Intake Total 599 ml 520 ml Balance 599 ml 520 ml Result Diagram: 05/23/16 0550 05/23/16 0550 Laboratory Results Laboratory Tests Test 05/23/16 05:50 White Blood Count 12.8 TH/MM3 Red Blood Count 3.89 MIL/MM3 Hemoglobin 12.3 GM/DL Hematocrit 37.3 % Mean Corpuscular Volume 95.8 FL Mean Corpuscular Hemoglobin 31.6 PG Mean Corpuscular Hemoglobin 32.9 % Concent Red Cell Distribution Width 14.6 % Platelet Count 104 TH/MM3 Mean Platelet Volume 9.3 FL Neutrophils (%) (Auto) % Lymphocytes (%) (Auto) % Monocytes (%) (Auto) % Eosinophils (%) (Auto) % Basophils (%) (Auto) % Neutrophils # (Auto) TH/MM3 Lymphocytes # (Auto) TH/MM3 Monocytes # (Auto) TH/MM3 Eosinophils # (Auto) TH/MM3 Basophils # (Auto) TH/MM3 CBC Comment AUTO DIFF Differential Total Cells 100 Counted Neutrophils % (Manual) 58 % Band Neutrophils % 3 % Lymphocytes % 22 % Monocytes % 9 % Eosinophils % 8 % Neutrophils # (Manual) 7.8 TH/MM3 Nucleated Red Blood Cells 1 /100 WBC Differential Comment FINAL DIFF MANUAL Platelet Estimate LOW Platelet Morphology Comment NORMAL Leonardo-Slaughter Bodies PRESENT Red Cell Morphology Comment NORMAL Sodium Level 145 MEQ/L Potassium Level 3.7 MEQ/L Chloride Level 109 MEQ/L Carbon Dioxide Level 26.4 MEQ/L Anion Gap 10 MEQ/L Blood Urea Nitrogen 15 MG/DL Creatinine 0.98 MG/DL Estimat Glomerular Filtration 75 ML/MIN Rate Random Glucose 98 MG/DL Calcium Level 8.3 MG/DL Administered Medications Medications (Trade) Dose Ordered Sig/Cortney Route PRN Reason Start Time Stop Time Status Last Admin Dose Admin IV Flush 2 ml 2 ml UNSCH PRN IVF FLUSH AFTER USING IV ACCESS 05/19/16 19:30 05/23/16 03:33 Sodium Chloride (NS 1000 ml Inj) 1,000 ml @ 40 mls/hr Q24H IV 05/19/16 22:52 05/22/16 22:15 Acetaminophen 650 mg 650 mg Q4H PRN PO TEMP > 100.4, pain 1 - 5 05/19/16 23:00 05/19/16 23:33 Piperacillin Sod/ Tazobactam Sod (Zosyn 3.375 Gm Premix) 50 ml @ 100 mls/hr Q6H IV 05/20/16 03:00 05/24/16 06:00 05/23/16 15:05 Acyclovir (Zovirax) 400 mg BID PO 05/20/16 09:00 05/23/16 08:51 Aspirin (Ecotrin Ec) 325 mg DAILY PO 05/20/16 09:00 05/23/16 08:51 Budesonide/ Formoterol Fumarate (Symbicort 160-4.5 Inh) 2 puff Q12HR INH 05/20/16 09:00 05/23/16 08:46 Bupropion HCl (Wellbutrin Sr) 150 mg BID PO 05/20/16 09:15 05/23/16 08:51 Pravastatin Sodium (Pravachol) 40 mg DAILY PO 05/20/16 09:00 05/23/16 08:51 Famotidine (Pepcid) 20 mg BID PO 05/20/16 09:15 05/23/16 08:51 Tiotropium [place] (Spiriva Inh) 18 mcg DAILY INH 05/20/16 09:00 05/23/16 08:46 Losartan Potassium (Cozaar) 100 mg DAILY PO 05/20/16 09:30 05/23/16 08:51 Tamsulosin HCl (Flomax) 0.4 mg DAILY PO 05/20/16 09:15 05/23/16 08:51 Acetaminophen/ Hydrocodone Bitart (Hardwick 10-325 Mg) 1 tab Q6H PRN PO PAIN SCALE 6 TO 10 05/22/16 18:45 05/23/16 15:04 Clindamycin HCl (Cleocin) 300 mg Q6H PO 05/23/16 15:00 05/30/16 14:59 05/23/16 15:47 Objective Remarks GENERAL: Well-nourished, well-developed patient. SKIN: Warm and dry. HEAD: Normocephalic. EYES: No scleral icterus. No injection or drainage. NECK: Supple, trachea midline. No JVD or lymphadenopathy. LYMPHATIC: No adenopathy. CARDIOVASCULAR: Regular rate and rhythm without murmurs. RESPIRATORY: Breath sounds equal bilaterally. No accessory muscle use. GASTROINTESTINAL: Abdomen soft, non-tender, nondistended. EXTREMITIES: No cyanosis, or edema. NEUROLOGICAL: No obvious focal deficit. Awake, alert, and oriented x3. PSYCHIATRIC: Appropriate mood and affect; insight and judgment normal. Assessment/Plan Problem List: (1) Toxic metabolic encephalopathy Status: Resolved Plan: improving (2) Sepsis Status: Resolved Plan: Antibiotics. (3) Chronic ITP (idiopathic thrombocytopenia) Status: Acute Plan: Chronic ITP, status post splenectomy. His disease tends not to respond to corticosteroids. He has been on a thrombopoietin analog as an outpatient; Nplate weekly dosing. Primary television and radio repairer is Dr. Mckay Kraus with [facility]. 05/23 plat continues to come down. Had nose bleed. D/W pharmacist. N- plate is nonformulary. But pt needs it otherwise he will have internal bleeding from severe ITP. N- Plate approved to be given inhouse. N - Plate 250 mcg x 1 OK to d/c fu with Dr Kraus. Assessment 71-year-old male with chronic ITP status post splenectomy, refractory to corticosteroids. Presents with toxic metabolic encephalopathy/sepsis. Platelet counts have decreased by 50% over the course of hospitalization; 250 down to 125. Plan 1. ITP: Continue monitoring. Please call the hematology service at extension [phone] to report any precipitous drops and platelet counts either tomorrow or over the weekend. Should his platelet counts stay stable he is cleared for discharge when cleared by the primary team. He knows to resume follow-up with his primary television and radio repairer upon discharge. Problem Qualifiers (1) Sepsis: Qualified Code: A41.9 - Sepsis, due to unspecified organism Yvonne Carlton MD May 23, 2016 19:00
[2016-05-23] MEDS: SODIUM CHLOR 0.9% 1000 ML INJ 1,000 ML IV SCH (22:52)
[2016-05-24 00:28] VITALS: BP 160/84; PULSE 76; RESP 20; TEMP 97.9; O2SAT 95
[2016-05-24] MEDS: CLINDAMYCIN 150 MG CAP PO SCH ×3 (03:08→14:43)
[2016-05-24] MEDS: PIPERACIL-TAZO 3.375 GM PREMIX 50 ML IV SCH (03:08)
[2016-05-24 04:28] VITALS: BP 156/80; PULSE 90; RESP 20; TEMP 98.2; O2SAT 96
[2016-05-24] MEDS ORDERED: PHARMACY ORDERED LAB XX ONE (05:45)
[2016-05-24 07:45] LABS: AUTOMATED NEUTROPHIL # 10.4 TH/MM3 (1.8-7.7); BASOPHIL # 0.1 TH/MM3 (0-0.2); BASOPHIL % 0.6 % (0.0-2.0); EOSINOPHIL # 0.7 TH/MM3 (0-0.4); EOSINOPHIL % 4.8 % (0.0-4.0); HEMATOCRIT 35.5 % (39.0-51.0); LYMPH % 11.4 % (9.0-44.0); LYMPHOCYTE # 1.6 TH/MM3 (1.0-4.8); MEAN CELL VOLUME 95.6 FL (80.0-100.0); MEAN CORPUSCULAR HEMOGLOBIN 31.5 PG (27.0-34.0); MEAN CORPUSCULAR HGB CONC 32.9 % (32.0-36.0); MONO % 11.1 % (0.0-8.0); NEUT % 72.1 % (16.0-70.0); RED BLOOD COUNT 3.71 MIL/MM3 (4.50-5.90); RED CELL DISTRIBUTION WIDTH 14.6 % (11.6-17.2); WHITE BLOOD COUNT 14.4 TH/MM3 (4.0-11.0)
[2016-05-24 08:00] VITALS: BP 143/88; PULSE 82; PULSE 95; RESP 22; TEMP 97.5; O2SAT 90; O2SAT 92
[2016-05-24 08:02] LABS: HEMO FLAGS AUTO DIFF; PLATELET COUNT 55 TH/MM3 (150-450)
[2016-05-24 08:03] LABS: HOWELL-JOLLY BODIES PRESENT (NONE SEEN); PLATELET ESTIMATE SMEAR LOW (NORMAL); PLATELET MORPHOLOGY NORMAL (NORMAL); SCAN/DIFF AUTO DIFF CONFIRMED
[2016-05-24 08:20] VITALS: O2SAT 92
[2016-05-24] MEDS ORDERED: LEVOFLOXACIN 750 MG TAB PO SCH (09:00)
[2016-05-24] MEDS: TIOTROPIUM BROMIDE 18 MCG INH INH SCH (11:23)
[2016-05-24] MEDS: BUDESONIDE-FORMOTEROL 160/4.5 MCG INHALER INH SCH (11:24)
[2016-05-24] MEDS: ACYCLOVIR 200 MG CAP PO SCH (11:27)
[2016-05-24] MEDS: ASPIRIN EC 325 MG TABEC PO SCH (11:27)
[2016-05-24] MEDS: TAMSULOSIN HCL 0.4 MG CAP PO SCH (11:27)
[2016-05-24] MEDS: buPROPion HCL 150 MG SUSTAINED RELEASE TAB PO SCH (11:27)
[2016-05-24] MEDS: LOSARTAN 50 MG TAB PO SCH (11:27)
[2016-05-24] MEDS: FAMOTIDINE 20 MG TAB PO SCH (11:27)
[2016-05-24] MEDS: PRAVASTATIN SOD 40 MG TAB PO SCH (11:27)
[2016-05-24 12:00] VITALS: BP 195/96; PULSE 74; RESP 23; TEMP 97.8; O2SAT 96
--- NOTE | 2016-05-24 12:09 | HHI.PR ---
Subjective Remarks Stable no acute issue, he does feel tired, no bleeding, platelet dropped to 55K today, I explained to him I will discuss with the floor clerk, and if he is okay with discharge Objective Vitals Vital Signs Date Time Temp Pulse Resp B/P Pulse Ox O2 Delivery O2 Flow Rate FiO2 05/24/16 08:20 92 21 05/24/16 08:00 97.5 82 22 143/88 90 05/24/16 04:28 98.2 90 20 156/80 96 05/24/16 00:28 97.9 76 20 160/84 95 05/23/16 22:18 18 05/23/16 20:28 96.7 100 22 186/83 90 05/23/16 20:15 77 05/23/16 20:00 97 Nasal Cannula 3.00 05/23/16 16:14 97.6 95 17 135/83 95 05/23/16 12:59 96.4 75 18 159/84 93 I/O 05/23/16 05/23/16 05/23/16 05/24/16 05/24/16 05/24/16 07:00 15:00 23:00 07:00 15:00 23:00 Intake Total 599 ml 520 ml Balance 599 ml 520 ml Intake Oral 240 ml 520 ml IV Total 359 ml # Voids 3 5 1 # Bowel Movements 2 Result Diagram: 05/24/16 0649 05/23/16 0550 Objective Remarks GENERAL: This is a well-nourished, obese well-developed patient, in no apparent distress. SKIN: Multiple ecchymosis on the upper extremity HEAD: Atraumatic. Normocephalic. EYES: Pupils equal round and reactive. Extraocular motions intact. No scleral icterus. ENT: Nose without bleeding, or drainage, Airway patent. NECK: Trachea midline. Supple CARDIOVASCULAR: Regular rate and rhythm without murmurs, gallops, or rubs. RESPIRATORY: Fair air entry bilaterally. No wheezes, rales, or rhonchi. GASTROINTESTINAL: Abdomen soft, non-tender, nondistended. Positive bowel sounds MUSCULOSKELETAL: Extremities without clubbing, cyanosis, or edema. Pedal pulses appreciated NEUROLOGICAL: Awake and alert. Moves all extremity. Normal speech.no focal neurological deficit A/P Problem List: (1) Sepsis ICD Code: A41.9 Status: Resolved (2) Toxic metabolic encephalopathy ICD Code: G92 Status: Resolved (3) HTN (hypertension) ICD Code: I10 Status: Chronic (4) Dyslipidemia ICD Code: E78.5 Status: Chronic (5) GERD (gastroesophageal reflux disease) ICD Code: K21.9 Status: Chronic (6) Dependence on supplemental oxygen ICD Code: Z99.81 Status: Chronic (7) COPD (chronic obstructive pulmonary disease) ICD Code: J44.9 Status: Chronic (8) Neck pain ICD Code: M54.2 Status: Acute Assessment and Plan 05/22/16: Consult ID, continue monitoring platelet and CBC, follow hematology recommendation Lengthy extensive discussion with the family and the patient regarding his situation explaining about pathophysiology, sepsis criteria on others All their question has been answered to satisfaction Blood pressure still not optimized will add Vasotec as needed 05/23/16: Discussed with Dr. Love, appreciate his help, will continue monitoring CBC and platelet count, n-plate if continue to decrease, ID consulted appreciated their input Change to Clinda and Levaquin x 7 days Rx for possible early parotitis/cellulitis neck 05/24/16: Platelet count dropped to 55K, however discuss with floor clerk he is okay to discharge patient to follow up with his floor clerk Dr. DOVE 71-year-old man with Sepsis with cervical lymphadenopathy(per the patient): Improved,currently on empiric Zosyn and vancomycin, insulins a and B negative-, blood culture show no growth so far. Questionable viral, ID consulted appreciated their input Change to Clinda and Levaquin x 7 days Rx for possible early parotitis/cellulitis neck Toxic metabolic encephalopathy: Soft tissue x-ray, head CT, chest x-ray all review by me without any acute finding. Encephalopathy resolved. UA, chest x- ray negative. Continue to hold all ORDNANCE TECHNICIAN depressant medication including all narcotics. Neck pain: Improved Soft tissue neck x-ray negative , CT neck showed nonspecific induration and lymphadenopathy, possible viral infection, patient is asplenic, ID consult History of ITP: Patient status post splenectomy and now with tumor thrombocytopenia, hematology consulted, appreciate their input, continue monitoring platelet History of COPD on 2 L nasal cannula: NO current exacerbation; continue outpatient medications and maintain oxygen saturation above 92%. Hypertension - Continue patient's home med (ARB). Dyslipidemia - continue Statin. GERD - continue home Ranitidine. Dependence on supplemental oxygen: Continue with 2 L nasal cannula Problem Qualifiers (1) Sepsis: Qualified Code: A41.9 - Sepsis, due to unspecified organism Janneth Amos MD May 24, 2016 12:09
[2016-05-24 16:00] VITALS: BP 160/78; PULSE 93; RESP 22; TEMP 97.5; O2SAT 94
--- NOTE | 2016-05-24 19:57 | HHI.DS ---
Discharge Summary Admission Date May 19, 2016 at 21:40 Discharge Date: May 24, 2016 Admitting Diagnosis Sepsis, AMS (1) Sepsis ICD Code: A41.9 (2) Toxic metabolic encephalopathy ICD Code: G92 (3) HTN (hypertension) ICD Code: I10 (4) Dyslipidemia ICD Code: E78.5 (5) GERD (gastroesophageal reflux disease) ICD Code: K21.9 (6) Dependence on supplemental oxygen ICD Code: Z99.81 (7) COPD (chronic obstructive pulmonary disease) ICD Code: J44.9 (8) Neck pain ICD Code: M54.2 Procedures See below Brief History - From Admission 71-year-old male with PMX of Hypertension, prostate cancer, COPD on home O2 2L NC was brought to the ED for evaluation for Altered mental status by his daughter on 05/19/16 after patient was seen earlier by his PCP who advised further evaluation in the hospital. Per EMR patient has been repeating himself. Soft tissue Xray as well as Head CT and CXR were all unremarkable.This AM during my exam, patient was alert and oriented x 3. He denies any chest pain and was afebrile. NO GI bleed , abdominal pain, focal weakness or numbness. CBC/BMP: 05/24/16 0649 05/23/16 0550 Significant Findings Laboratory Tests Test 05/22/16 05/22/16 05/23/16 05/24/16 01:25 06:29 05:50 06:49 C-Reactive Protein 9.20 MG/DL (0.00-0.30) Vancomycin Level Trough 24.5 MCG/ML (5.0-10.0) White Blood Count 16.7 TH/MM3 12.8 TH/MM3 14.4 TH/MM3 (4.0-11.0) (4.0-11.0) (4.0-11.0) Red Blood Count 4.07 MIL/MM3 3.89 MIL/MM3 3.71 MIL/MM3 (4.50-5.90) (4.50-5.90) (4.50-5.90) Hemoglobin 12.8 GM/DL 12.3 GM/DL 11.7 GM/DL (13.0-17.0) (13.0-17.0) (13.0-17.0) Hematocrit 38.6 % 37.3 % 35.5 % (39.0-51.0) (39.0-51.0) (39.0-51.0) Platelet Count 124 TH/MM3 104 TH/MM3 55 TH/MM3 (150-450) (150-450) (150-450) Neutrophils (%) (Auto) 72.4 % 72.1 % (16.0-70.0) (16.0-70.0) Monocytes (%) (Auto) 13.7 % 11.1 % (0.0-8.0) (0.0-8.0) Neutrophils # (Auto) 12.1 TH/MM3 10.4 TH/MM3 (1.8-7.7) (1.8-7.7) Monocytes # (Auto) 2.3 TH/MM3 1.6 TH/MM3 (0-0.9) (0-0.9) Neutrophils % (Manual) 74 % (16-70) Neutrophils # (Manual) 12.5 TH/MM3 7.8 TH/MM3 (1.8-7.7) (1.8-7.7) Erythrocyte Sedimentation Rate 33 mm/hr (0-20) Monocytes % 9 % (0-8) Eosinophils % 8 % (0-4) Nucleated Red Blood Cells 1 /100 WBC (0-0) Platelet Estimate LOW (NORMAL) LOW (NORMAL) Chloride Level 109 MEQ/L (98-107) Estimat Glomerular Filtration 75 ML/MIN (>89) Rate Calcium Level 8.3 MG/DL (8.5-10.1) Eosinophils (%) (Auto) 4.8 % (0.0-4.0) Eosinophils # (Auto) 0.7 TH/MM3 (0-0.4) PE at Discharge GENERAL: This is a well-nourished, obese well-developed patient, in no apparent distress. SKIN: Multiple ecchymosis on the upper extremity HEAD: Atraumatic. Normocephalic. EYES: Pupils equal round and reactive. Extraocular motions intact. No scleral icterus. ENT: Nose without bleeding, or drainage, Airway patent. NECK: Trachea midline. Supple CARDIOVASCULAR: Regular rate and rhythm without murmurs, gallops, or rubs. RESPIRATORY: Fair air entry bilaterally. No wheezes, rales, or rhonchi. GASTROINTESTINAL: Abdomen soft, non-tender, nondistended. Positive bowel sounds MUSCULOSKELETAL: Extremities without clubbing, cyanosis, or edema. Pedal pulses appreciated NEUROLOGICAL: Awake and alert. Moves all extremity. Normal speech.no focal neurological deficit Hospital Course 71-year-old man with Sepsis with cervical lymphadenopathy(per the patient): Improved,currently on empiric Zosyn and vancomycin, insulins a and B negative-, blood culture show no growth so far. Questionable viral, ID consulted appreciated their input Change to Clinda and Levaquin x 7 days Rx for possible early parotitis/cellulitis neck Toxic metabolic encephalopathy: Soft tissue x-ray, head CT, chest x-ray all review by me without any acute finding. Encephalopathy resolved. UA, chest x- ray negative. Continue to hold all MANIFEST CLERK depressant medication including all narcotics. Neck pain: Improved Soft tissue neck x-ray negative , CT neck showed nonspecific induration and lymphadenopathy, possible viral infection, patient is asplenic, ID consult History of ITP: Patient status post splenectomy and now with tumor thrombocytopenia, hematology consulted, appreciate their input, continue monitoring platelet History of COPD on 2 L nasal cannula: NO current exacerbation; continue outpatient medications and maintain oxygen saturation above 92%. Hypertension - Continue patient's home med (ARB). Dyslipidemia - continue Statin. GERD - continue home Ranitidine. Dependence on supplemental oxygen: Continue with 2 L nasal cannula On 05/22/16: Consult ID, continue monitoring platelet and CBC, follow hematology recommendation Lengthy extensive discussion with the family and the patient regarding his situation explaining about pathophysiology, sepsis criteria on others All their question has been answered to satisfaction Blood pressure still not optimized will add Vasotec as needed On 05/23/16: Discussed with Dr. Love, appreciate his help, will continue monitoring CBC and platelet count, n-plate if continue to decrease, ID consulted appreciated their input Change to Clinda and Levaquin x 7 days Rx for possible early parotitis/cellulitis neck On 05/24/16: Platelet count dropped to 55K, however discuss with engine lathe set up operator tool he is okay to discharge patient to follow up with his engine lathe set up operator tool Dr. DOVE [id number] encounter performed with the patient on discharge day, as well as physical exam, summary of hospitalization course and postdischarge plan has been D/W the patient. His daughter and his D/W nurse D/W case management rn. Discharge medications reviewed and printed and signed, post discharge follow up visit with PCP and other specialist as well as Brief hospital course and discharge summary has been placed. Pt Condition on Discharge: Stable Discharge Disposition: Discharge Home Discharge Time: > 30 minutes Discharge Instructions DIET: Follow Instructions for: Heart Healthy Diet Activities you can perform: Weight Bearing as Jyoti Continued Medications: Acyclovir (Acyclovir) 400 Mg Tab 400 MG PO BID Mgmt Viral Infection Ref 0 TAB Albuterol 18 GM Inh (Ventolin Hfa 18 GM Inh) 90 Mcg/Act Aer 2 PUFF INH Q4-6H PRN SHORTNESS OF BREATH #1 Ref [address] (Ecotrin Regular Strength) 325 Mg Tabdr 325 MG PO DAILY #30 Ref 0 TAB Budesonide-Formoterol Inh (Symbicort Inh) 160-4.5 Mcg/Act Aero 2 PUFF INH Q12HR #1 Ref 0 INHALER Bupropion HCl ER 24 HR (Bupropion HCl ER 24 HR) 300 Mg Tab 300 MG PO DAILY Control Depression Ref 0 TAB Cyclosporine Opth Drops (Restasis Opth Drops) 0.05% Emul 1 DROP EACH EYE BID Dry Eye #1 Ref 0 BOX Hydrocodone-Acetaminophen (Taylor) 10-325 Mg Tab 1 TAB PO Q4H PRN PAIN Ref 0 TAB Irbesartan (Avapro) 300 Mg Tab 300 MG PO DAILY Blood Pressure Management #30 Ref 0 TAB Mirabegron (Myrbetriq) 50 Mg Tab 50 MG PO DAILY Urinary Symptom Managemen #30 Ref 0 TAB Pravastatin (Pravastatin) 40 Mg Tab 40 MG PO DAILY Cholesterol Management #30 Ref 0 TAB Ranitidine (Ranitidine) 150 Mg Tab 150 MG PO BID Heartburn Management #60 Ref 0 TAB Silodosin (Rapaflo) 8 Mg Cap 8 MG PO DAILY Manage Prostate Problems #30 Ref 0 CAP Tiotropium Inh (Spiriva Handihaler) 18 Mcg Cap 18 MCG INH DAILY 1 capsule = 18 mcg COPD #30 Ref 0 CAP Janneth Amos MD May 24, 2016 19:57
== END 2016-05-24 18:16 | disposition home or self-care (01) | DRG 871 ==
LOC: PHED 14:31 → PHEDA 21:40 → PHEDH 05-20 01:40 → PH3A 05-20 07:35
PROVIDERS: ADMIT Hospitalist; ATTEND Hospitalist
DX: A41.9 Sepsis, unspecified organism (principal); G92 Toxic encephalopathy; D69.3 Immune thrombocytopenic purpura; Z99.81 Dependence on supplemental oxygen; J44.9 Chronic obstructive pulmonary disease, unspecified; Z90.81 Acquired absence of spleen; I10 Essential (primary) hypertension; E78.5 Hyperlipidemia, unspecified; K21.9 Gastro-esophageal reflux disease without esophagitis; M54.2 Cervicalgia; Z85.46 Personal history of malignant neoplasm of prostate; E66.9 Obesity, unspecified; Z68.38 Body mass index [BMI] 38.0-38.9, adult; Z79.82 Long term (current) use of aspirin; Z87.891 Personal history of nicotine dependence
CPT/HCPCS: 70360; 70450; 70491; 71010; 80048; 80053; 80202; 81001; 82140; 83605; 84443; 84484; 85007; 85025; 85027; 85610; 85652; 85730; 86140; 87040; 87804; 96374; J2405; J2543; J3370; J7030; J7040; J7050; Q9967

== ENCOUNTER 2017-07-16 20:52 | Inpatient (IN) | payer MEDICARE, BC ==
[~2017-07-16] VITALS: Ht 182.9 cm; Wt 121.1 kg
[~2017-07-16 20:52] MED LIST changes: -ALBU8I INH; +ASPI-146 PO; -ASPI325T24 PO; -AVAP300T PO; -FIBECAP2 PO; -HYDR-3129 PO; +HYDR-3366 PO; +IRBE300T44 PO; -LEVA750T PO; +MIRA50TA PO; -PRED10PA PO; +SPIRCAP INH; -TIOT18I INH; +VENTAER INH; -Z.0.OXYGENDME NC
[2017-07-16 21:14] VITALS: BP 187/86; PULSE 95; RESP 14; TEMP 98.4; O2SAT 98
[2017-07-16] MEDS ORDERED: SODIUM CHLORIDE 0.9% FLUSH 10 ML FLUSH IVF PRN (21:15)
--- NOTE | 2017-07-16 21:20 | PD ---
HPI Chief Complaint: WEAKNESS Time Seen by Provider: 21:04 Travel History International Travel<30 days: No Contact w/Intl Traveler<30days: No Traveled to known affect area: No History of Present Illness HPI This is a 72-year-old male who presents via EMS for evaluation of falls and right upper extremity weakness. He reports that he lives at home with his reports that for the past 2 days his right arm has been weak, essentially flaccid. He did not come to the ER sooner because he figured that it would improve. He reports that he has been having lightheadedness when walking and, secondary to the paralysis of the right arm, has been unable to steady himself and thus he has fallen several times over the past 2 days. He fell a few times today. When EMS arrived this afternoon he was on the ground. Besides lightheadedness with ambulation and right arm weakness he denies any other symptoms. He denies any chest pain, shortness of breath, blurred vision, headache, neck pain, nausea, vomiting, confusion, amnesia, aphasia, lower extremity weakness, abdominal pain. He reports a history of hypertension and COPD. He is not on any blood thinning medications. His primary care physician is Dr. Lyon. No other complaints at this time. PFSH Past Medical History Arthritis: No Asthma: No Autoimmune Disease: No Blood Disorders: No Anxiety: Yes Depression: No Heart Rhythm Problems: No Cancer: Yes (PROSTATE CA) Cardiovascular Problems: No High Cholesterol: No Chemotherapy: No Chest Pain: No Congestive Heart Failure: No COPD: Yes Cerebrovascular Accident: No Diabetes: No Diminished Hearing: No Endocrine: No Gastrointestinal Disorders: Yes (ACID REFLUX ) GERD: Yes Genitourinary: No Headaches: Yes Hepatitis: No Heparin Induced Thrombocytopen: No Hypertension: Yes Immune Disorder: No Implanted Vascular Access Dvce: Yes Kidney Stones: No Musculoskeletal: Yes (ARTHRITIS;LOSS OF MUSCLE) Neurologic: Yes (HX MINI STROKE) Psychiatric: No Reproductive: Yes (PROSTATE CA) Respiratory: Yes Migraines: No Myocardial Infarction: Yes Radiation Therapy: No Renal Failure: No Seizures: No Sickle Cell Disease: No Sleep Apnea: No Thyroid Disease: No Ulcer: No Past Surgical History Abdominal Surgery: No AICD: No Appendectomy: No Arteriovenous Shunt: No Body Medical Devices: LUPE SHOULDER REPLAC Cardiac Surgery: No Cholecystectomy: No Ear Surgery: Yes (MASTOID/ RIGHT EAR DRUM REPLAC 1996) Endocrine Surgery: No Eye Surgery: No Genitourinary Surgery: No Insulin Pump: No Joint Replacement: Yes (LUPE shoulder replacement) Neurologic Surgery: No Oral Surgery: Yes (TONSILLECTOMY ) Pacemaker: No Thoracic Surgery: No Tonsillectomy: Yes Other Surgery: Yes (SPLEEN) Social History Alcohol Use: No Tobacco Use: No Substance Use: No Allergies-Medications (Allergen,Severity, Reaction): Coded Allergies: No Known Allergies (Verified , 05/19/16) Reported Meds & Prescriptions Reported Meds & Active Scripts Active Reported Rapaflo (Silodosin) 8 Mg Cap 8 Mg PO DAILY Myrbetriq (Mirabegron) 50 Mg Tab 50 Mg PO DAILY Spiriva Handihaler (Tiotropium Inh) 18 Mcg Cap 18 Mcg INH DAILY 1 capsule = 18 mcg Rapaflo (Silodosin) 8 Mg Cap 8 Mg PO DAILY Ranitidine (Ranitidine HCl) 150 Mg Tab 150 Mg PO BID Pravastatin 40 Mg Tab 40 Mg PO DAILY Avapro (Irbesartan) 300 Mg Tab 300 Mg PO DAILY Colton (Hydrocodone-Acetaminophen) 10-325 Mg Tab 1 Tab PO Q4H PRN Restasis Opth (Cyclosporine Opth) 0.05% Emul 1 Drop EACH EYE BID Celebrex (Celecoxib) 200 Mg Cap 200 Mg PO BID Bupropion HCl ER 24 HR (Bupropion HCl) 300 Mg Tab 300 Mg PO DAILY Symbicort Inh (Budesonide/Formoterol Fumarate) 160-4.5 Mcg/Act Aero 2 Puff INH Q12HR Ecotrin Regular Strength (Aspirin) 325 Mg Tabdr 325 Mg PO DAILY Ventolin Hfa 18 GM Inh (Albuterol Sulfate) 90 Mcg/Act Aer 2 Puff INH Q4-6H PRN Acyclovir 400 Mg Tab 400 Mg PO BID Review of Systems Except as stated in HPI: all other systems reviewed are Neg Physical Exam Narrative GENERAL: Well-developed well-nourished elderly male who is alert and oriented to person, place, time. He is answering questions and responding to commands appropriately. SKIN: Warm and dry. Abrasions and contusions noted, particularly to the right upper extremity. HEAD: Atraumatic. Normocephalic. EYES: Pupils equal and round. No scleral icterus. No injection or drainage. ENT: No nasal bleeding or discharge. Mucous membranes pink and moist. NECK: Trachea midline. No JVD. CARDIOVASCULAR: Regular rate and rhythm. No murmur appreciated. RESPIRATORY: No accessory muscle use. Clear to auscultation. Breath sounds equal bilaterally. GASTROINTESTINAL: Abdomen soft, non-tender, nondistended. Hepatic and splenic margins not palpable. MUSCULOSKELETAL: No obvious deformities. No clubbing. No cyanosis. No edema. NEUROLOGICAL: Awake and alert. No obvious cranial nerve deficits. Motor grossly within normal limits. Normal speech. Right arm is flaccid. There is no drift in the lower extremities or left upper extremity. There is no dysarthria. Visual wolf are intact in all 4 quadrants in the left and right eye. Data Data Last Documented VS Vital Signs Date Time Temp Pulse Resp B/P (MAP) Pulse Ox O2 Delivery O2 Flow Rate FiO2 07/17/17 00:30 74 20 183/81 (115) 99 Room Air 07/16/17 21:14 98.4 Orders Orders Electrocardiogram (07/16/17 21:15) Prothrombin Time / Inr (Pt) (07/16/17 21:15) Act Partial Throm Time (Ptt) (07/16/17 21:15) Complete Blood Count With Diff (07/16/17 21:15) Comprehensive Metabolic Panel (07/16/17 21:15) Creatine Kinase (Cpk) (07/16/17 21:15) Troponin I (07/16/17 21:15) Ct Brain W/O Iv Contrast(Rout) (07/16/17 21:15) Chest, Single Ap (07/16/17 21:15) Ecg Monitoring (07/16/17 21:15) Iv Access Insert/Monitor (07/16/17 21:15) Oximetry (07/16/17 21:15) Sodium Chloride 0.9% Flush (Ns Flush) (07/16/17 21:15) Ct Cerv Spine W/O Contrast (07/16/17 ) [place] (07/16/17 21:17) Tetanus/Diphtheria Tox Adult (Tetanus/Di (07/16/17 21:30) Aspirin Chew (Aspirin Chew) (07/16/17 23:00) Admit To Inpatient (07/17/17 ) Code Status (07/17/17 02:05) Nih Stroke Scale - Nihss .On admission and discharge (07/17/17 02:05) Neuro Checks Q2H (07/17/17 02:05) Ot Request For Service (07/17/17 02:05) Consult Pt Eval & Treat (07/17/17 02:05) Activity Bed Rest (07/17/17 02:05) Nursing Bedside Swallow Assess .ONCE (07/17/17 02:05) Scd Bilateral/Knee High DANIEL.QSHIFT (07/17/17 02:05) Hemoglobin (Hgb) A1c (07/17/17 06:00) Lipid Profile (07/17/17 06:00) Resp Oxygen Nc Stroke (07/17/17 ) ^ Hold Medication (07/17/17 02:05) Consult Neurology (07/17/17 ) Sodium Chloride 0.9% Flush (Ns Flush) (07/17/17 09:00) Sodium Chloride 0.9% Flush (Ns Flush) (07/17/17 02:15) Sodium Chlor 0.9% 1000 Ml Inj (Ns 1000 M (07/17/17 02:05) Enalaprilat Inj (Vasotec Inj) (07/17/17 02:15) Bedside Glucose DANIEL.CSUGAR (07/17/17 02:05) ^ Discontinue Insulin Orders (07/17/17 02:05) Insulin Aspart Supplemtl Scale (Novolog (07/17/17 08:00) Dextrose 50% In Alvaro (Vial) Inj (D50w (Vi (07/17/17 02:15) Glucagon Inj (Glucagon Inj) (07/17/17 02:15) Crate Repairer / Telemetry DANIEL.Q8H (07/17/17 02:05) Consult Stroke Navigator (07/17/17 ) Heparin Inj (Heparin Inj) (07/17/17 09:00) Inpatient Certification (07/17/17 ) Aspirin Ec (Ecotrin Ec) (07/17/17 09:00) Budeson-Formot 160-4.5 Mcg Inh (Symbicor (07/17/17 09:00) Pravastatin (Pravachol) (07/17/17 09:00) Labs Laboratory Tests Test 07/16/17 21:24 White Blood Count 19.3 TH/MM3 Red Blood Count 5.03 MIL/MM3 Hemoglobin 15.3 GM/DL Hematocrit 46.7 % Mean Corpuscular Volume 92.8 FL Mean Corpuscular Hemoglobin 30.3 PG Mean Corpuscular Hemoglobin Concent 32.7 % Red Cell Distribution Width 14.8 % Platelet Count 1252 TH/MM3 Mean Platelet Volume 8.5 FL Neutrophils (%) (Auto) 81.0 % Lymphocytes (%) (Auto) 8.7 % Monocytes (%) (Auto) 8.8 % Eosinophils (%) (Auto) 0.7 % Basophils (%) (Auto) 0.8 % Neutrophils # (Auto) 15.6 TH/MM3 Lymphocytes # (Auto) 1.7 TH/MM3 Monocytes # (Auto) 1.7 TH/MM3 Eosinophils # (Auto) 0.1 TH/MM3 Basophils # (Auto) 0.2 TH/MM3 CBC Comment DIFF FINAL Differential Comment Blood Urea Nitrogen 19 MG/DL Creatinine 0.90 MG/DL Random Glucose 74 MG/DL Total Protein 7.5 GM/DL Albumin 3.5 GM/DL Calcium Level 9.0 MG/DL Alkaline Phosphatase 71 U/L Aspartate Amino Transf (AST/SGOT) 33 U/L Alanine Aminotransferase (ALT/SGPT) 35 U/L Total Bilirubin 0.9 MG/DL Sodium Level 140 MEQ/L Potassium Level 4.9 MEQ/L Chloride Level 106 MEQ/L Carbon Dioxide Level 22.4 MEQ/L Anion Gap 12 MEQ/L Estimat Glomerular Filtration Rate 83 ML/MIN Total Creatine Kinase 168 U/L Troponin I LESS THAN 0.02 NG/ML MDM Medical Decision Making Medical Screen Exam Complete: Yes Emergency Medical Condition: Yes Medical Record Reviewed: Yes Differential Diagnosis CVA, TIA, spinal cord injury, electrolyte abnormality, hypoglycemia, intracranial hemorrhage Narrative Course IV established, lab work, CT the brain and cervical spine ordered. CBC reveals WBC count 19.3, platelet count 1252, review of records reveals that the patient has a history of ITP and receives weekly injections of nplate, thrombopoietin analog. He reports that 2 weeks ago he was told that his platelet count was too high and so he did not take the last week's dose of endplate. Follows with layup worker Dr. Kraus. 325 mg aspirin ordered. CMP is unremarkable. CT the brain and cervical spine revealed no acute abnormalities. Patient will be placed for the on-call layup worker. At the end of my shift patient was signed out to Dr. Connelly the discussed with the on-call layup worker in regards to the thrombocytosis. Diagnosis Primary Impression: CVA (cerebral vascular accident) Additional Impression: Thrombocytosis Zelalem Hernandez July 16, 2017 21:20
[2017-07-16] MEDS ORDERED: TETANUS/DIPHTHERIA TOXOID ADULT 0.5 ML VIAL IM ONE (21:30)
--- NOTE | 2017-07-16 21:47 | RADRPT ---
EXAM DATE/TIME: 07/16/2017 21:28 [facility] COMPARISON: CHEST SINGLE AP, May 19, 2016, 19:34. INDICATIONS : CVA MEDICAL HISTORY : Chronic obstructive pulmonary disease. Myocardial infarction. Carcinoma, prostatic. Hypertension. ITP. SURGICAL HISTORY : Splenectomy. ENCOUNTER: Initial ACUITY: 1 day PAIN SCORE: 0/10 LOCATION: Bilateral chest FINDINGS: A single view of the chest demonstrates the lungs to be symmetrically aerated without evidence of mas s, infiltrate or effusion. The cardiomediastinal contours are unremarkable. Osseous structures are intact. CONCLUSION: No acute disease. Manuel No MD on July 16, 2017 at 21:44 Board Certified Radiologist. This report was verified electronically.
[2017-07-16 22:23] LABS: ALT (GPT) 35 U/L (12-78)
[2017-07-16 22:27] LABS: ALBUMIN 3.5 GM/DL (3.4-5.0); ALKALINE PHOSPHATASE 71 U/L (45-117); AST (GOT) 33 U/L (15-37); BICARBONATE 22.4 MEQ/L (21.0-32.0); BLOOD UREA NITROGEN 19 MG/DL (7-18); CHLORIDE 106 MEQ/L (98-107); GLOMERULAR FILTRATION RATE 83 ML/MIN (>89); GLUCOSE,RANDOM 74 MG/DL (74-106); SODIUM (NA) 140 MEQ/L (136-145); TOTAL BILIRUBIN ADULT 0.9 MG/DL (0.2-1.0); TOTAL PROTEIN 7.5 GM/DL (6.4-8.2); TROPONIN I LESS THAN 0.02 NG/ML (0.02-0.05)
[2017-07-16 22:31] LABS: AUTOMATED NEUTROPHIL # 15.6 TH/MM3 (1.8-7.7); BASOPHIL # 0.2 TH/MM3 (0-0.2); BASOPHIL % 0.8 % (0.0-2.0); EOSINOPHIL # 0.1 TH/MM3 (0-0.4); EOSINOPHIL % 0.7 % (0.0-4.0); HEMATOCRIT 46.7 % (39.0-51.0); HEMOGLOBIN 15.3 GM/DL (13.0-17.0); LYMPH % 8.7 % (9.0-44.0); LYMPHOCYTE # 1.7 TH/MM3 (1.0-4.8); MEAN CELL VOLUME 92.8 FL (80.0-100.0); MEAN CORPUSCULAR HEMOGLOBIN 30.3 PG (27.0-34.0); MEAN CORPUSCULAR HGB CONC 32.7 % (32.0-36.0); MEAN PLATELET VOLUME 8.5 FL (7.0-11.0); MONO % 8.8 % (0.0-8.0); MONOCYTE # 1.7 TH/MM3 (0-0.9); PLATELET COUNT 1252 TH/MM3 (150-450); RED BLOOD COUNT 5.03 MIL/MM3 (4.50-5.90); RED CELL DISTRIBUTION WIDTH 14.8 % (11.6-17.2); WHITE BLOOD COUNT 19.3 TH/MM3 (4.0-11.0)
--- NOTE | 2017-07-16 22:46 | RADRPT ---
EXAM DATE/TIME: 07/16/2017 22:31 [facility] COMPARISON: CT BRAIN W/O CONTRAST, May 19, 2016, 20:13. INDICATIONS : Trauma, fall. Right arm weakness. RADIATION DOSE: 66.34 CTDIvol (mGy) MEDICAL HISTORY : Stroke. Hypertension. Carcinoma, prostate. SURGICAL HISTORY : None. ENCOUNTER: Initial ACUITY: 1 day PAIN SCALE: 0/10 LOCATION: cranial TECHNIQUE: Multiple contiguous axial images were obtained of the head. Using automated exposure control and adj ustment of the mA and/or kV according to patient size, radiation dose was kept as low as reasonably a chievable to obtain optimal diagnostic quality images. DICOM format image data is available electro nically for review and comparison. FINDINGS: CEREBRUM: The ventricles are normal for age. Cerebral atrophy. No evidence of midline shift, mass lesion, hemor rhage or acute infarction. No extra-axial fluid collections are seen. POSTERIOR FOSSA: The cerebellum and brainstem are intact. The 4th ventricle is midline. The cerebellopontine angle i s unremarkable. EXTRACRANIAL: The visualized portion of the orbits is intact. SKULL: The calvaria is intact. No evidence of skull fracture. CONCLUSION: No acute disease. Manuel No MD on July 16, 2017 at 22:44 Board Certified Radiologist. This report was verified electronically.
--- NOTE | 2017-07-16 22:51 | RADRPT ---
EXAM DATE/TIME: 07/16/2017 22:31 [facility] COMPARISON: No previous studies available for comparison. INDICATIONS : Trauma, fall. RADIATION DOSE: 29.67 CTDIvol (mGy) MEDICAL HISTORY : Stroke. Hypertension. Carcinoma, prostate. SURGICAL HISTORY : Bilateral shoulder replacements. ENCOUNTER: Initial ACUITY: 1 day PAIN SCALE: 2/10 LOCATION: neck TECHNIQUE: Volumetric scanning of the cervical spine was performed. Multiplanar reconstructions in the sagittal, coronal and oblique axial planes were performed. Using automated exposure control and adjustment o f the mA and/or kV according to patient size, radiation dose was kept as low as reasonably achievable to obtain optimal diagnostic quality images. DICOM format image data is available electronically f or review and comparison. FINDINGS: VERTEBRAE: Normal vertebral body height. Prominent C-arm changes C5-C7 ALIGNMENT: No evidence of subluxation. C2-C3: The bony spinal canal is normal in size. No evidence of disc bulge or herniation. The neural forami na are bilaterally patent. C3-C4: Posterior disc osteophyte complex without canal stenosis. Bilateral neural foraminal narrowing. C4-C5: The neural foramina are bilaterally patent. Posterior disc osteophyte complex without canal stenosis. C5-C6: Posterior disc osteophyte complex without canal stenosis. Bilateral neural femoral narrowing. C6-C7: Bilateral neural foraminal narrowing. Posterior disc osteophyte complex without canal stenosis. C7-T1: The bony spinal canal is normal in size. No evidence of disc bulge or herniation. The neural forami na are bilaterally patent. CONCLUSION: Prominent degenerative changes. No fracture or subluxation. Manuel No MD on July 16, 2017 at 22:46 Board Certified Radiologist. This report was verified electronically.
[2017-07-16] MEDS ORDERED: ASPIRIN 81 MG CHEW TAB CHEW ONE (23:00)
[2017-07-17] VITALS (8 sets, daily range): BP systolic 136–186; BP diastolic 67–86; PULSE 71–84; RESP 16–20; TEMP 97.4–98.2; O2SAT 92–99
[2017-07-17] MEDS ORDERED: DEXTROSE 50% IN WATER 50 ML VIAL(D50) IV PUSH PRN ×2 (02:15→02:30)
[2017-07-17] MEDS ORDERED: SENNOSIDES 8.6 MG TAB PO PRN (02:15)
[2017-07-17] MEDS ORDERED: GLUCAGON 1 MG/ML VIAL OTHER PRN (02:15)
[2017-07-17] MEDS ORDERED: METOCLOPRAMIDE HCL 10 MG/2 ML VIAL IV PUSH PRN (02:15)
[2017-07-17] MEDS ORDERED: MORPHINE SULFATE 4 MG/ML INJ IV PUSH PRN (02:15)
[2017-07-17] MEDS ORDERED: MAGNESIUM HYDROXIDE SUSP 30 ML CUP PO PRN (02:15)
[2017-07-17] MEDS ORDERED: LACTULOSE SYRUP 20 GM/30 ML CUP PO PRN (02:15)
[2017-07-17] MEDS ORDERED: SODIUM CHLORIDE 0.9% FLUSH 10 ML FLUSH IV FLUSH PRN ×3 (02:15→02:30)
[2017-07-17] MEDS ORDERED: BISACODYL 10 MG SUPP RECTAL PRN (02:15)
[2017-07-17] MEDS ORDERED: ENALAPRILAT 1.25 MG/ML VIAL IV PUSH PRN (02:15)
[2017-07-17] MEDS ORDERED: ACETAMINOPHEN 325 MG TAB PO PRN (02:15)
--- NOTE | 2017-07-17 02:58 | HHI.HP ---
HPI Service [facility] Primary Care Physician Juventino Alonzo MD Admission Diagnosis CVA Diagnoses: (1) CVA (cerebral vascular accident) Diagnosis: Principal (2) Thrombocytosis Diagnosis: Principal (3) Chronic ITP (idiopathic thrombocytopenia) Diagnosis: Principal Travel History International Travel<30 Days: No Contact w/Intl Traveler <30 Da: No Traveled to Known Affected Are: No History of Present Illness This is a 72-year-old male with a PMH of Anxiety, Prostate CA, COPD, HTN and ITP who was brought to the ER after being found down on the ground by daughter. Pt states he had acute onset of right arm flaccid paralysis 2 days ago, did not seek medical attention because "I was hoping it would go away". Also reports gait instability w/ multiple falls in the last few days, but denies any lower extremity weakness. He called his daughter today to tell her of his arm paralysis at which time she drove to his house and found him on the ground. Pt denies LOC or head trauma. BP 187/86, HR 95, O2 sat 98% RA, Afebrile. WBC 19.3. Hemoglobin 15.3. Platelets 1252, previously 55 on 05/24/2016. Pt states he follows w/ Dr. Kraus and is on treatment for ITP w/ Nplate, states his platelet count was high and was not given Nplate last week, cannot recall platelet count. Chemistry essentially unremarkable. Troponin negative. CT Head with no acute findings. CXR with no acute findings. S/p ASA in ER. I asked that case be discussed w/ Heme/Onc prior to admission in light of thrombocytosis w/ acute neurologic deficit for possible plateletpheresis, Dr. Love consulted, per ER doc, no further treatment needed at this time. Review of Systems Except as stated in HPI: all other systems reviewed are Neg ROS: 14 point review of systems otherwise negative. Past Family Social History Past Medical History PMH: Anxiety, Prostate CA, COPD, HTN and ITP Past Surgical History PAST SURGICAL HISTORY: Bilateral Shoulder Surgery, Tonsillectomy, Ear Surgery Allergies: Coded Allergies: No Known Allergies (Verified , 05/19/16) Family History PAST FAMILY HISTORY: Reviewed. No h/o DM or CAD Social History PAST SOCIAL HISTORY: Negative for alcohol, tobacco or drugs. Physical Exam Vital Signs Vital Signs Date Time Temp Pulse Resp B/P (MAP) Pulse Ox O2 Delivery O2 Flow Rate FiO2 07/17/17 00:30 74 20 183/81 (115) 99 Room Air 07/16/17 21:14 98.4 95 14 187/86 (119) 98 Physical Exam PE: GENERAL: Pleasant elderly white male in no acute distress. HEENT: PERRLA, EOMI. No scleral icterus or conjunctival pallor. No lid lag or facial droop. CARDIOVASCULAR: Regular rate and rhythm. No obvious murmurs to auscultation. No chest tenderness to palpation. RESPIRATORY: No obvious rhonchi or wheezing. Clear to auscultation. Breath sounds equal bilaterally. GASTROINTESTINAL: Abdomen soft, non-tender, nondistended. BS normal. MUSCULOSKELETAL: Extremities without clubbing, cyanosis, or edema. No obvious deformities. NEUROLOGICAL: Awake, alert and oriented x4. RUE flaccid paralysis. Moving both lower extremities spontaneously. Laboratory Laboratory Tests Test 07/16/17 21:24 White Blood Count 19.3 Red Blood Count 5.03 Hemoglobin 15.3 Hematocrit 46.7 Mean Corpuscular Volume 92.8 Mean Corpuscular Hemoglobin 30.3 Mean Corpuscular Hemoglobin Concent 32.7 Red Cell Distribution Width 14.8 Platelet Count 1252 Mean Platelet Volume 8.5 Neutrophils (%) (Auto) 81.0 Lymphocytes (%) (Auto) 8.7 Monocytes (%) (Auto) 8.8 Eosinophils (%) (Auto) 0.7 Basophils (%) (Auto) 0.8 Neutrophils # (Auto) 15.6 Lymphocytes # (Auto) 1.7 Monocytes # (Auto) 1.7 Eosinophils # (Auto) 0.1 Basophils # (Auto) 0.2 CBC Comment DIFF FINAL Differential Comment Blood Urea Nitrogen 19 Creatinine 0.90 Random Glucose 74 Total Protein 7.5 Albumin 3.5 Calcium Level 9.0 Alkaline Phosphatase 71 Aspartate Amino Transf (AST/SGOT) 33 Alanine Aminotransferase (ALT/SGPT) 35 Total Bilirubin 0.9 Sodium Level 140 Potassium Level 4.9 Chloride Level 106 Carbon Dioxide Level 22.4 Anion Gap 12 Estimat Glomerular Filtration Rate 83 Total Creatine Kinase 168 Troponin I LESS THAN 0.02 Result Diagram: 07/16/17212307/16/172123 Caprini VTE Risk Assessment Caprini VTE Risk Assessment: Mod/High Risk (score >= 2) Caprini Risk Assessment Model Point Value = 1 Point Value = 2 Point Value = 3 Point Value = 5 Age 41-60 Minor surgery BMI > 25 kg/m2 Swollen legs Varicose veins or History of unexplained or recurrent spontaneous Oral contraceptives or hormone replacement Sepsis (< 1 month) Serious lung disease, including pneumonia (< 1 month) Abnormal pulmonary function Acute myocardial infarction Congestive heart failure (< 1 month) History of inflammatory bowel disease Medical patient at bed rest Age 61-74 Arthroscopic surgery Major open surgery (> 45 min) Laparoscopic surgery (> 45 min) Malignancy Confined to bed (> 72 hours) Immobilizing plaster cast Central venous access Age >= 75 History of VTE Family history of VTE Factor V Leiden Prothrombin [id number] Lupus anticoagulant Anticardiolipin antibodies Elevated serum homocysteine Heparin-induced thrombocytopenia Other congenital or acquired thrombophilia Stroke (< 1 month) Elective arthroplasty Hip, pelvis, or leg fracture Acute spinal cord injury (< 1 month) Prophylaxis Regimen Total Risk Factor Score Risk Level Prophylaxis Regimen 0-1 Low Early ambulation 2 Moderate Order ONE of the following: *Sequential Compression Device (SCD) *Heparin 5000 units SQ BID 3-4 Higher Order ONE of the following medications: *Heparin 5000 units SQ TID *Enoxaparin/Lovenox 40 mg SQ daily (WT < 150 kg, CrCl > 30 mL/min) *Enoxaparin/Lovenox 30 mg SQ daily (WT < 150 kg, CrCl > 10-29 mL/min) *Enoxaparin/Lovenox 30 mg SQ BID (WT < 150 kg, CrCl > 30 mL/min) AND/OR *Sequential Compression Device (SCD) 5 or more Highest Order ONE of the following medications: *Heparin 5000 units SQ TID (Preferred with Epidurals) *Enoxaparin/Lovenox 40 mg SQ daily (WT < 150 kg, CrCl > 30 mL/min) *Enoxaparin/Lovenox 30 mg SQ daily (WT < 150 kg, CrCl > 10-29 mL/min) *Enoxaparin/Lovenox 30 mg SQ BID (WT < 150 kg, CrCl > 30 mL/min) AND *Sequential Compression Device (SCD) Assessment and Plan Problem List: (1) CVA (cerebral vascular accident) ICD Code: I63.9 - Cerebral infarction, unspecified Status: Acute (2) Thrombocytosis ICD Code: D47.3 - Essential (hemorrhagic) thrombocythemia Status: Acute (3) Chronic ITP (idiopathic thrombocytopenia) ICD Code: D69.3 - Immune thrombocytopenic purpura Status: Acute Assessment and Plan A/P: 1. CVA: acute RUE flaccid paralysis x2 days w/ associated gait instability and recurrent falls, found down on ground by Daughter. No h/o CVA. CT Head w/ no acute findings, images reviewed by me. Admit for further evaluation, ASA, Statin, NPO, HOB flat, IVF, MRI/MRA, Consult Neurology for further evaluation. Neuro checks. Lipid Profile/Hgb A1c. 2. Thrombocytosis: Platelets 1252, concern for acute neurologic deficit from hyperviscosity, I asked that Heme/Onc be consulted prior to admission for possible plateletpheresis in light of acute paralysis w/ thrombocytosis, ER physician spoke w/ Dr. Love, no further treatment needed at this time, pt ok for Med/Surg admission per ER doc. Continue w/ work up as above, Neuro Checks q2h. Repeat labs in am. 3. ITP: H/o ITP, following w/ Dr. Kraus as outpatient, currently on treatment w / Nplate, no treatment given last week for elevated platelet count, will repeat labs in am. 4. DVT Prophylaxis: Heparin sq 5. Social work for d/c planning as needed. 6. Case discussed w/ ER physician at length, labs/records/imaging reviewed by me. Physician Certification 2 Midnight Certification Type: Admission for Inpatient Services Order for Inpatient Services The services are ordered in accordance with Medicare regulations or non- Medicare payer requirements, as applicable. In the case of services not specified as inpatient-only, they are appropriately provided as inpatient services in accordance with the 2-midnight benchmark. Estimated LOS (days): 2 days is the estimated time the patient will need to remain in the hospital, assuming treatment plan goals are met and no additional complications. Post-Hospital Plan: Not yet determined Staci Huber MD July 17, 2017 02:58
[2017-07-17] MEDS: SODIUM CHLOR 0.9% 1000 ML INJ 1,000 ML IV SCH ×2 (03:06→12:19)
[2017-07-17] MEDS ORDERED: LORazepam 2 MG/ML VIAL IV PUSH ONE (03:30)
[2017-07-17] MEDS ORDERED: GADODIAMIDE PF 287 MG/ML 20 ML VIAL (for RAD MRI) IVCONTRAST ONE (03:42)
--- NOTE | 2017-07-17 05:07 | RADRPT ---
EXAM DATE/TIME: 07/17/2017 03:50 [facility] COMPARISON: No previous studies available for comparison. INDICATIONS : TIA. Right arm weakness. CONTRAST: 20 cc Omniscan (gadodiamide) IV MEDICAL HISTORY : Hypertension. Carcinoma, prostate. Myocardial infarction. SURGICAL HISTORY : Splenectomy. Bilateral shoulder sx. ENCOUNTER: Initial ACUITY: 2 day PAIN SCORE: 7/10 LOCATION: Right arm. Percent stenosis is calculated using the diameter of the stenotic region over the diameter of the nor mal distal internal carotid artery. TECHNIQUE: Bolus infused MRA of the extracranial circulation was performed using a neurovascular coil. Post pro cessing was performed including rotating subvolume maximum intensity projections of each carotid carolee ry, rotating full volume maximum intensity projections of both carotid arteries, sagittal and coronal sliding thin slab reformations of each carotid artery, and left oblique sliding thin slab reformatio n through the aortic arch to include the origin of the arch branch vessels. FINDINGS: AORTIC ARCH: There is a three vessel origin of the great vessels from the aorta. No evidence of ostial narrowing. RIGHT CAROTID: The common carotid artery is intact. The carotid bulb has a normal configuration without ulceration or narrowing. The internal carotid artery lumen is smooth without stenosis. The external carotid ar aleksey is intact. LEFT CAROTID: The common carotid artery is intact. Prominent plaque at the origin of the left internal carotid carolee ry causing 50-60% stenosis. The external carotid artery is intact. VERTEBRALS: The vertebral arteries have a symmetric diameter. No stenotic lesions are seen. CONCLUSION: 1. There is a 50-60% stenosis of the left proximal internal carotid artery. 2. No significant stenosis right carotid artery. Manuel No MD on July 17, 2017 at 4:58 Board Certified Radiologist. This report was verified electronically.
--- NOTE | 2017-07-17 05:28 | RADRPT ---
EXAM DATE/TIME: 07/17/2017 03:50 [facility] COMPARISON: No previous studies available for comparison. INDICATIONS : TIA. Right arm weakness for two days. MEDICAL HISTORY : Carcinoma, prostate. Hypertension. Myocardial infarction. SURGICAL HISTORY : Splenectomy. Bilateral shoulder sx. ENCOUNTER: Initial ACUITY: 2 day PAIN SCORE: 7/10 LOCATION: Right arm. Please note a normal MRA of the brain does not entirely exclude the possibility of a small aneurysm, nor the possibility of distal intracranial vessel disease. TECHNIQUE: 3D time of flight MRA was performed. Source images, multiplanar STS MIP, and 3D volume MIP reconstru ctions were reviewed. FINDINGS: There is excellent visualization of the major intracranial arteries out to the second-order branch ve ssels. There is no evidence for aneurysm, vessel truncation or stenosis, and no evidence for vascula r malformation. Persistent circulation right posterior cerebral artery. No significant stenosis . Dominant right vertebral artery. Left vertebral artery not seen. CONCLUSION: 1. No large vessel stenosis or aneurysm. 2. Normal variants as above. Manuel No MD on July 17, 2017 at 5:24 Board Certified Radiologist. This report was verified electronically.
--- NOTE | 2017-07-17 05:30 | RADRPT ---
EXAM DATE/TIME: 07/17/2017 03:50 [facility] COMPARISON: CT BRAIN W/O CONTRAST, July 16, 2017, 22:31. INDICATIONS : TIA. Right arm weakness. MEDICAL HISTORY : Carcinoma, prostate. Hypertension. Myocardial infarction. SURGICAL HISTORY : Splenectomy. Bilateral shoulder sx. ENCOUNTER: Initial ACUITY: 2 day PAIN SCORE: 7/10 LOCATION: Right arm. TECHNIQUE: Multiplanar, multisequence MRI of the brain was performed without contrast. FINDINGS: CEREBRUM: Areas of high flair abnormality in the left occipital and parietal lobes as well as the left caudate nucleus. The ventricles are normal for age. No evidence of midline shift, mass lesion, hemorrhage or acute infarction. No extraaxial fluid collections are seen. The pituitary gland and suprasellar ci blancas are normal in configuration. WHITE MATTER: No significant signal abnormalities are seen in the white matter. POSTERIOR FOSSA: The cerebellum and brainstem are intact. The 4th ventricle is midline. The cerebellopontine angle is unremarkable. The cerebellar tonsils are normal in position. DIFFUSION IMAGING: No focal areas of restricted diffusion are seen. No evidence of acute infarction. EXTRACRANIAL: The visualized portions of the orbits and paranasal sinuses are unremarkable. CONCLUSION: 1. Multifocal small acute infarcts in the left occipital, parietal lobes and left basal ganglia. 2. No midline shift or mass effect Manuel No MD on July 17, 2017 at 5:27 Board Certified Radiologist. This report was verified electronically.
--- NOTE | 2017-07-17 06:57 | PD ---
Physical Exam Date Seen by Provider: July 17, 2017 Time Seen by Provider: 02:30 Narrative Patient is signed out to me at 11:00 to finish dispo for PA ...Dr. Huber hospitalists would like it HEME MD Love . to be advised of the fact the patient's platelets are to [address] Ivan Love feels that aspirin is appropriate and that the platelets will decrease rapidly and that there is no need for any further anticoagulation or worry about viscosity her coagulability I called Dr. Marie she accepts the patient to [facility] consult for Dr. Love is placed for the a.m. consult patient is stable patient has MRI/ MRA of the head and neck to comes in at 3 AM to do the MRA MRI of the brain and MRA of the neck and patient is stable at this time and admitted to [facility] for CVA subacute Data Data Last Documented VS Vital Signs Date Time Temp Pulse Resp B/P (MAP) Pulse Ox O2 Delivery O2 Flow Rate FiO2 07/17/17 00:30 74 20 183/81 (115) 99 Room Air 07/17/17 00:00 97.4 Orders Orders Electrocardiogram (07/16/17 21:15) Prothrombin Time / Inr (Pt) (07/16/17 21:15) Act Partial Throm Time (Ptt) (07/16/17 21:15) Complete Blood Count With Diff (07/16/17 21:15) Comprehensive Metabolic Panel (07/16/17 21:15) Creatine Kinase (Cpk) (07/16/17 21:15) Troponin I (07/16/17 21:15) Ct Brain W/O Iv Contrast(Rout) (07/16/17 21:15) Chest, Single Ap (07/16/17 21:15) Ecg Monitoring (07/16/17 21:15) Iv Access Insert/Monitor (07/16/17 21:15) Oximetry (07/16/17 21:15) Sodium Chloride 0.9% Flush (Ns Flush) (07/16/17 21:15) Ct Cerv Spine W/O Contrast (07/16/17 ) [place] (07/16/17 21:17) Tetanus/Diphtheria Tox Adult (Tetanus/Di (07/16/17 21:30) Aspirin Chew (Aspirin Chew) (07/16/17 23:00) Admit To Inpatient (07/17/17 ) Code Status (07/17/17 02:05) Nih Stroke Scale - Nihss .On admission and discharge (07/17/17 02:05) Neuro Checks Q2H (07/17/17 02:05) Ot Request For Service (07/17/17 02:05) Consult Pt Eval & Treat (07/17/17 02:05) Activity Bed Rest (07/17/17 02:05) Nursing Bedside Swallow Assess .ONCE (07/17/17 02:05) Scd Bilateral/Knee High DANIEL.QSHIFT (07/17/17 02:05) Hemoglobin (Hgb) A1c (07/17/17 06:00) Lipid Profile (07/17/17 06:00) Resp Oxygen Nc Stroke (07/17/17 ) ^ Hold Medication (07/17/17 02:05) Consult Neurology (07/17/17 ) Sodium Chloride 0.9% Flush (Ns Flush) (07/17/17 09:00) Sodium Chloride 0.9% Flush (Ns Flush) (07/17/17 02:15) Sodium Chlor 0.9% 1000 Ml Inj (Ns 1000 M (07/17/17 02:05) Enalaprilat Inj (Vasotec Inj) (07/17/17 02:15) Bedside Glucose DANIEL.CSUGAR (07/17/17 02:05) ^ Discontinue Insulin Orders (07/17/17 02:05) Insulin Aspart Supplemtl Scale (Novolog (07/17/17 08:00) Dextrose 50% In Alvaro (Vial) Inj (D50w (Vi (07/17/17 02:15) Glucagon Inj (Glucagon Inj) (07/17/17 02:15) Investment Fund Manager / Telemetry DANIEL.Q8H (07/17/17 02:05) Consult Stroke Navigator (07/17/17 ) Heparin Inj (Heparin Inj) (07/17/17 09:00) Inpatient Certification (07/17/17 ) Aspirin Ec (Ecotrin Ec) (07/17/17 09:00) Budeson-Formot 160-4.5 Mcg Inh (Symbicor (07/17/17 09:00) Pravastatin (Pravachol) (5/11/18 09:00) Labs Laboratory Tests Test 07/16/17 21:24 White Blood Count 19.3 TH/MM3 Red Blood Count 5.03 MIL/MM3 Hemoglobin 15.3 GM/DL Hematocrit 46.7 % Mean Corpuscular Volume 92.8 FL Mean Corpuscular Hemoglobin 30.3 PG Mean Corpuscular Hemoglobin Concent 32.7 % Red Cell Distribution Width 14.8 % Platelet Count 1252 TH/MM3 Mean Platelet Volume 8.5 FL Neutrophils (%) (Auto) 81.0 % Lymphocytes (%) (Auto) 8.7 % Monocytes (%) (Auto) 8.8 % Eosinophils (%) (Auto) 0.7 % Basophils (%) (Auto) 0.8 % Neutrophils # (Auto) 15.6 TH/MM3 Lymphocytes # (Auto) 1.7 TH/MM3 Monocytes # (Auto) 1.7 TH/MM3 Eosinophils # (Auto) 0.1 TH/MM3 Basophils # (Auto) 0.2 TH/MM3 CBC Comment DIFF FINAL Differential Comment Blood Urea Nitrogen 19 MG/DL Creatinine 0.90 MG/DL Random Glucose 74 MG/DL Total Protein 7.5 GM/DL Albumin 3.5 GM/DL Calcium Level 9.0 MG/DL Alkaline Phosphatase 71 U/L Aspartate Amino Transf (AST/SGOT) 33 U/L Alanine Aminotransferase (ALT/SGPT) 35 U/L Total Bilirubin 0.9 MG/DL Sodium Level 140 MEQ/L Potassium Level 4.9 MEQ/L Chloride Level 106 MEQ/L Carbon Dioxide Level 22.4 MEQ/L Anion Gap 12 MEQ/L Estimat Glomerular Filtration Rate 83 ML/MIN Total Creatine Kinase 168 U/L Troponin I LESS THAN 0.02 NG/ML MDM Supervised Visit with ELLA: Yes Diagnosis Primary Impression: CVA (cerebral vascular accident) Additional Impression: Thrombocytosis Admitting Information Admitting Physician Requests: Admit Kunal Connelly MD July 17, 2017 06:57
[2017-07-17] MEDS: INSULIN ASPART SUPPLEMENTAL SCALE SQ SCH ×4 (08:00→21:00)
[2017-07-17] MEDS ORDERED: INSULIN ASPART SUPPLEMENTAL SCALE SQ SCH (08:00)
[2017-07-17] MEDS: SODIUM CHLORIDE 0.9% FLUSH 10 ML FLUSH IV FLUSH SCH ×6 (08:09→23:43)
[2017-07-17 08:24] LABS: AUTOMATED NEUTROPHIL # 11.2 TH/MM3 (1.8-7.7); BASOPHIL # 0.1 TH/MM3 (0-0.2); BASOPHIL % 0.6 % (0.0-2.0); EOSINOPHIL # 0.2 TH/MM3 (0-0.4); EOSINOPHIL % 1.2 % (0.0-4.0); HEMATOCRIT 43.8 % (39.0-51.0); HEMOGLOBIN 14.6 GM/DL (13.0-17.0); LYMPH % 10.4 % (9.0-44.0); LYMPHOCYTE # 1.5 TH/MM3 (1.0-4.8); MEAN CELL VOLUME 92.1 FL (80.0-100.0); MEAN CORPUSCULAR HEMOGLOBIN 30.7 PG (27.0-34.0); MEAN CORPUSCULAR HGB CONC 33.3 % (32.0-36.0); MEAN PLATELET VOLUME 8.5 FL (7.0-11.0); MONO % 11.9 % (0.0-8.0); MONOCYTE # 1.8 TH/MM3 (0-0.9); NEUT % 75.9 % (16.0-70.0); PLATELET COUNT 1126 TH/MM3 (150-450); RED BLOOD COUNT 4.75 MIL/MM3 (4.50-5.90); RED CELL DISTRIBUTION WIDTH 14.8 % (11.6-17.2); WHITE BLOOD COUNT 14.7 TH/MM3 (4.0-11.0)
[2017-07-17 08:32] LABS: INTERNATIONAL NORMALIZED RATIO 1.1 RATIO; PROTHROMBIN TIME - PATIENT 11.4 SEC (9.8-11.6)
[2017-07-17 08:54] LABS: ALBUMIN 3.4 GM/DL (3.4-5.0); ALKALINE PHOSPHATASE 70 U/L (45-117); ALT (GPT) 37 U/L (12-78); AST (GOT) 29 U/L (15-37); BICARBONATE 23.8 MEQ/L (21.0-32.0); BLOOD UREA NITROGEN 21 MG/DL (7-18); CALCIUM 8.2 MG/DL (8.5-10.1); CHLORIDE 107 MEQ/L (98-107); CHOLESTEROL 135 MG/DL (120-200); CHOLESTEROL/ HDL RATIO 3.34 RATIO; CREATININE 0.79 MG/DL (0.60-1.30); GLOMERULAR FILTRATION RATE 96 ML/MIN (>89); GLUCOSE,RANDOM 89 MG/DL (74-106); HDL CHOLESTEROL 40.4 MG/DL (40.0-60.0); LDL CHOLESTEROL 81 MG/DL (0-99); SODIUM (NA) 140 MEQ/L (136-145); TOTAL PROTEIN 6.8 GM/DL (6.4-8.2); TRIGLYCERIDES 70 MG/DL (42-150)
--- NOTE | 2017-07-17 09:39 | PD.CONS ---
History of Present Illness Service Hematology Consult Requested By The hospitalist service. Reason for Consult Patient with a history of ITP, status post splenectomy. Presenting with ischemic stroke (multifocal). Thrombocytosis related to therapy. Primary Care Physician Juventino Alonzo MD Diagnoses: (1) Chronic ITP (idiopathic thrombocytopenia) (2) Thrombocytosis (3) CVA (cerebral vascular accident) History of Present Illness Chief complaint: Right hand numbness and right hand weakness. History of presenting illness: Mr. Brizuela is a 72-year-old man with a history of immune thrombocytopenic purpura, he is under the care of Dr. Mckay Kraus of hematology and oncology ( [facility]). The patient is status post splenectomy which was performed in 2017, since then he has been on periodic dosing with Nplate (which is a thrombopoietin analog). The patient reports noting numbness tingling and weakness of his right arm which started about 2 days ago, he reports having fallen at home and stumbling trying to catch his balance. Though he lives at home with his the patient called his daughter last night and informed her of his symptoms. His daughter arrived and brought him to the emergency department. The patient was evaluated as a stroke alert in the emergency department, he underwent CT scan of the head which revealed no abnormalities, CBC was performed which revealed a platelet count of greater than 1200. An MRI of the brain and MRA of the brain as well as CT angiogram of the neck were performed. MRI of the brain performed earlier this morning revealed multifocal small acute infarcts in the left occipital, left parietal and basal ganglia on the left side. CT angiogram of the neck revealed left carotid artery stenosis of 60-50%. The hematology/oncology service has been asked to see the patient given the thrombocytosis and to help further management of the thrombocytosis keeping in mind he has an underlying diagnosis of ITP. Review of Systems Constitutional: COMPLAINS OF: Dizziness, DENIES: Diaphoretic episodes, Fever, Weight gain, Weight loss, Chills, Change in appetite, Night Sweats Endocrine: DENIES: Heat/cold intolerance, Polydipsia, Polyuria, Polyphagia Eyes: DENIES: Blurred vision, Diplopia, Eye inflammation, Eye pain, Vision loss , Photosensitivity, Double Vision Ears, nose, mouth, throat: COMPLAINS OF: Vertigo, DENIES: Tinnitus, Hearing loss, Nasal discharge, Oral lesions, Throat pain, Hoarseness, Ear Pain, Running Nose, Epistaxis, Sinus Pain, Toothache, Odynophagia Respiratory: DENIES: Apneas, Cough, Snoring, Wheezing, Hemoptysis, Sputum production, Shortness of breath Cardiovascular: COMPLAINS OF: Dyspnea on Exertion, DENIES: Chest pain, Palpitations, Syncope, PND, Lower Extremity Edema, Orthopnea, Claudication Gastrointestinal: DENIES: Abdominal pain, Black stools, Bloody stools, Constipation, Diarrhea, Nausea, Vomiting, Difficulty Swallowing, Anorexia Genitourinary: DENIES: Sexual dysfunction, Urinary frequency, Urinary incontinence, Urgency, Hematuria, Dysuria, Nocturia, Penile Discharge, Testicular Pain, Testicular Swelling Musculoskeletal: COMPLAINS OF: Muscle aches, Stiffness, Back pain, DENIES: Joint pain, Joint Swelling, Neck pain Integumentary: DENIES: Abnormal pigmentation, Nail changes, Pruritus, Rash Hematologic/lymphatic: DENIES: Bruising, Lymphadenopathy Immunologic/allergic: DENIES: Eczema, Urticaria Neurologic: COMPLAINS OF: Localized weakness (Right upper extremity weakness), Paresthesias (numbness of the right upper extremity), Poor Balance, DENIES: Abnormal gait, Headache, Seizures, Speech Problems, Tremor Psychiatric: COMPLAINS OF: Anxiety, DENIES: Confusion, Mood changes, Depression , Hallucinations, Agitation, Suicidal Ideation, Homicidal Ideation, Delusions Except as stated in HPI: all other systems reviewed are Neg Past Family Social History Allergies: Coded Allergies: No Known Allergies (Verified , 05/19/16) Past Medical History Immune thrombus cytopenic purpura COPD Obesity Hypertension Personal history of tobaccoism Past Surgical History Splenectomy Bilateral shoulder replacement surgery Tonsillectomy Appendectomy Active Ordered Medications Normal saline 100 cc/h Hydrocodone/acetaminophen 5/325 mg tablets every 4 hours needed for pain Aspirin 325 mg p.o. daily Symbicort 2 puffs inhaled every 12 hours Enalaprilat 1.25 mg IV every 4 hours needed for hypertension Heparin 5000 units subcu every 12 hours. Lorazepam 1 mg IV 1 Insulin NovoLog low-dose sliding scale before meals and at bedtime. Metoclopramide 5 mg IV every 6 hours needed for nausea and vomiting Pravastatin 40 mg p.o. daily Family History Parents are both , mother and father both had cancers, the patient cannot recall what type. 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 He lives at home with his , he has a daughter and 2 sons. The patient reports formally being a smoker having smoked about a pack a day for 35 years, he quit in 1999. He denies ever having been a heavy alcohol consumer. Physical Exam Vital Signs Vital Signs Date Time Temp Pulse Resp B/P (MAP) Pulse Ox O2 Delivery O2 Flow Rate FiO2 07/17/17 07:40 95 21 07/17/17 07:00 75 18 163/67 (99) 98 Room Air 07/17/17 05:13 99 21 07/17/17 04:30 82 18 165/67 (99) 97 Room Air 07/17/17 00:30 74 20 183/81 (115) 99 Room Air 07/16/17 21:14 98.4 95 14 187/86 (119) 98 Physical Exam GENERAL: Elderly male, laying in an ER gurney, he was asleep when I walked in, he is easily arousable. He appears to be morbidly obese, he is not acutely distressed. He speaks to me in full sentences. SKIN: He has bruising and skin tears on his right arm and forearm, as well as some bruising on his right prakash and leg. HEAD: Atraumatic. Normocephalic. No temporal or scalp tenderness. EYES: Pupils equal round and reactive. Extraocular motions intact. No scleral icterus. No injection or drainage. ENT: Nose without bleeding, purulent drainage or septal hematoma. Throat without erythema, tonsillar hypertrophy or exudate. Uvula midline. Airway patent. NECK: Trachea midline. No JVD or lymphadenopathy. Supple, nontender, no meningeal signs. CARDIOVASCULAR: Regular rate and rhythm without murmurs, gallops, or rubs. RESPIRATORY: Clear to auscultation. Breath sounds equal bilaterally. No wheezes , rales, or rhonchi. GASTROINTESTINAL: Obese belly, abdomen soft, non-tender, nondistended. No hepato -splenomegaly, or palpable masses. No guarding. MUSCULOSKELETAL: Extremities without clubbing, cyanosis, or edema. No joint tenderness, effusion, or edema noted. No calf tenderness. Negative Homans sign bilaterally. NEUROLOGICAL: Awake and alert. Cranial nerves II through XII intact. Near flaccid paralysis of the right arm. Left arm 5 x 5 strength. Right and left lower extremity 5 x 5 strength. Laboratory Laboratory Tests Test 07/16/17 21:24 07/17/17 07:44 White Blood Count 19.3 14.7 Red Blood Count 5.03 4.75 Hemoglobin 15.3 14.6 Hematocrit 46.7 43.8 Mean Corpuscular Volume 92.8 92.1 Mean Corpuscular Hemoglobin 30.3 30.7 Mean Corpuscular Hemoglobin Concent 32.7 33.3 Red Cell Distribution Width 14.8 14.8 Platelet Count 1252 1126 Mean Platelet Volume 8.5 8.5 Neutrophils (%) (Auto) 81.0 75.9 Lymphocytes (%) (Auto) 8.7 10.4 Monocytes (%) (Auto) 8.8 11.9 Eosinophils (%) (Auto) 0.7 1.2 Basophils (%) (Auto) 0.8 0.6 Neutrophils # (Auto) 15.6 11.2 Lymphocytes # (Auto) 1.7 1.5 Monocytes # (Auto) 1.7 1.8 Eosinophils # (Auto) 0.1 0.2 Basophils # (Auto) 0.2 0.1 CBC Comment DIFF FINAL DIFF FINAL Differential Comment Blood Urea Nitrogen 19 21 Creatinine 0.90 0.79 Random Glucose 74 89 Total Protein 7.5 6.8 Albumin 3.5 3.4 Calcium Level 9.0 8.2 Alkaline Phosphatase 71 70 Aspartate Amino Transf (AST/SGOT) 33 29 Alanine Aminotransferase (ALT/SGPT) 35 37 Total Bilirubin 0.9 1.0 Sodium Level 140 140 Potassium Level 4.9 4.3 Chloride Level 106 107 Carbon Dioxide Level 22.4 23.8 Anion Gap 12 9 Estimat Glomerular Filtration Rate 83 96 Total Creatine Kinase 168 Troponin I LESS THAN 0.02 Prothrombin Time 11.4 Prothromb Time International Ratio 1.1 Activated Partial Thromboplast Time 28.9 Triglycerides Level 70 Cholesterol Level 135 LDL Cholesterol 81 HDL Cholesterol 40.4 Cholesterol/HDL Ratio 3.34 Result Diagram: 07/17/17 0744 07/17/17 0744 Imaging MRI of the brain dated 07/17/2017: Conclusion: Multifocal small acute infarcts involving the left occipital lobe, parietal lobes and left basal ganglia. 2. No midline shift or mass-effect. MRA of the neck dated 07/17/2017: Conclusion: There is a 50-60% stenosis of the left proximal internal carotid artery. 2. No significant stenosis of the right carotid artery. Assessment and Plan Assessment and Plan Mr. Brizuela is a 72-year-old man with a diagnosis of ITP, he status post splenectomy and has been on Nplate therapy under the care of Dr. Mckay Kraus of [facility]. The patient presents to the hospital with a 2 day history of numbness and weakness of the right upper extremity, difficulty balancing and confusion. MRI of the brain performed earlier this morning indicates multifocal acute infarcts involving the left parietal, occipital lobes as well as the left basal ganglia. MRA of the neck reveals a 50-60% occlusion at the level of the proximal left internal carotid artery. The patient was noted to have a platelet count of over 1200 at time of presentation , repeat CBC this morning reveals a platelet count of 1100. The hematology service is been asked to see the patient to determine if any specific therapeutic interventions be on antiplatelet therapy are required given the thrombocytosis. The patient presently is on aspirin 325 mg once daily. A formal neurology evaluation is pending at this time. Plan: 1. ITP now with overcorrection of platelets likely secondary to the thrombopoietin analog he has been on: Long-term management of ITP will be deferred to his primary social worker clinical. At this point the patient ought to be treated with full dose antiplatelet therapy. It is not clear whether the elevated platelet counts played a role in the cause of the ischemic stroke. It appears this patient has other risk factors for strokes including morbid obesity , previous history of tobaccoism, history of hypertension and carotid artery plaque formation on the left side. Typically once an individual has undergone splenectomy we anticipate a correction in the platelet counts. I would advise CBC assessments daily and I would recommend monitoring his platelet counts. I do not anticipate his counts to drop precipitously. Await neurology evaluation. The patient denies a history of venous or arterial thromboses in the past. At this point I do not suspect a primary underlying prothrombotic state, based on the findings of plaques in the left internal carotid artery I suspect the most likely etiology of the ischemic strokes is cardiovascular in nature. I therefore do not believe this individual will require therapeutic anticoagulation based on a purely hematologic/prothrombotic indication. Discussed Condition With ER physician in the morning of 07/17/2017. Patient. Problem Qualifiers (1) CVA (cerebral vascular accident): Qualified Codes: I63.132 - Cerebral infarction due to embolism of left carotid artery Chuck Love MD July 17, 2017 09:39
--- NOTE | 2017-07-17 09:51 | HHI.PR ---
Subjective Remarks Follow-up CVA. Not seen Objective Vitals Vital Signs Date Time Temp Pulse Resp B/P (MAP) Pulse Ox O2 Delivery O2 Flow Rate FiO2 07/17/17 07:40 95 21 07/17/17 07:00 75 18 163/67 (99) 98 Room Air 07/17/17 05:13 99 21 07/17/17 04:30 82 18 165/67 (99) 97 Room Air 07/17/17 00:30 74 20 183/81 (115) 99 Room Air 07/16/17 21:14 98.4 95 14 187/86 (119) 98 Result Diagram: 07/17/17 0744 07/17/17 0744 Imaging Last Impressions Neck Magnetic Resonance Angiography 07/17/17 0000 Signed Impressions: Service Date/Time: Monday, July 17, 2017 03:50 - CONCLUSION: 1. There is a 50-60%% stenosis of the left proximal internal carotid artery. 2. No significant stenosis right carotid artery. Manuel No MD Head Magnetic Resonance Angiography 07/17/17 Signed Impressions: Service Date/Time: Monday, July 17, 2017 03:50 - CONCLUSION: 1. No large vessel stenosis or aneurysm. 2. Normal variants as above. Manuel No MD Brain MRI 07/17/17 Signed Impressions: Service Date/Time: Monday, July 17, 2017 03:50 - CONCLUSION: 1. Multifocal small acute infarcts in the left occipital, parietal lobes and left basal ganglia. 2. No midline shift or mass effect Manuel No MD Head CT [id number] Signed Impressions: Service Date/Time: July 22:31 - CONCLUSION: No acute disease. Manuel No MD Chest X-Ray [id number] Signed Impressions: Service Date/Time: July 21:28 - CONCLUSION: No acute disease. Manuel No MD Cervical Spine CT 07/16/17 Signed Impressions: Service Date/Time: July 22:31 - CONCLUSION: Prominent degenerative changes. No fracture or subluxation. Manuel No MD Objective Remarks GENERAL: Pleasant elderly white male in no acute distress. HEENT: PERRLA, EOMI. No scleral icterus or conjunctival pallor. No lid lag or facial droop. CARDIOVASCULAR: Regular rate and rhythm. No obvious murmurs to auscultation. No chest tenderness to palpation. RESPIRATORY: No obvious rhonchi or wheezing. Clear to auscultation. Breath sounds equal bilaterally. GASTROINTESTINAL: Abdomen soft, non-tender, nondistended. BS normal. MUSCULOSKELETAL: Extremities without clubbing, cyanosis, or edema. No obvious deformities. NEUROLOGICAL: Awake, alert and oriented x4. RUE flaccid paralysis. Moving both lower extremities spontaneously. Procedures none A/P Problem List: (1) CVA (cerebral vascular accident) ICD Code: I63.9 - Cerebral infarction, unspecified Status: Acute (2) Thrombocytosis ICD Code: D47.3 - Essential (hemorrhagic) thrombocythemia Status: Acute (3) Chronic ITP (idiopathic thrombocytopenia) ICD Code: D69.3 - Immune thrombocytopenic purpura Status: Acute Assessment and Plan 1. CVA involving left occiput, parietal and basal ganglia with 50-60% left ICA stenosis: acute RUE flaccid paralysis x2 days w/ associated gait instability and recurrent falls, found down on ground by Daughter. . Admit for further evaluation, ASA, Statin, NPO, HOB flat, IVF for permissive hypertension, consult Neurology for further evaluation. Neuro checks. LDL 81 pending Hgb A1c. Check ECHO tele 2. Thrombocytosis: Platelets 1252, concern for acute neurologic deficit from hyperviscosity, I asked that Heme/Onc be consulted prior to admission for possible plateletpheresis in light of acute paralysis w/ thrombocytosis, ER physician spoke w/ Dr. Love, no further treatment needed at this time, pt ok for Med/Surg admission per ER doc. Continue w/ work up as above, Neuro Checks q2h. Repeat labs in am. 3. ITP: H/o ITP, following w/ Dr. Kraus as outpatient, currently on treatment w / Nplate, no treatment given last week for elevated platelet count, will repeat labs in am. 4. DVT Prophylaxis: Heparin sq Problem Qualifiers (1) CVA (cerebral vascular accident): Qualified Codes: I63.132 - Cerebral infarction due to embolism of left carotid artery Patrice Gordon MD July 17, 2017 09:51
[2017-07-17] MEDS: PRAVASTATIN SOD 40 MG TAB PO SCH (10:02)
[2017-07-17] MEDS: BUDESONIDE-FORMOTEROL 160/4.5 MCG INHALER INH SCH ×2 (10:02→21:00)
[2017-07-17] MEDS: ASPIRIN EC 325 MG TABEC PO SCH (10:02)
[2017-07-17] MEDS: DOCUSATE SODIUM 50 MG/SENNA 8.6 MG TAB PO SCH ×2 (10:03→23:41)
[2017-07-17] MEDS: HEPARIN SODIUM - SQ 10,000 UNITS/ML VIAL SQ SCH ×2 (10:03→23:42)
[2017-07-17] MEDS ORDERED: SODIUM CHLOR 0.9% 1000 ML INJ 1,000 ML IV SCH (10:15)
[2017-07-17] MEDS ORDERED: ALBUTEROL SULFATE 90 MCG/ACT HFA 8 GM INHALER INH PRN (11:00)
[2017-07-17] MEDS: ACETAMINOPHEN/HYDROcodone 325 MG/5 MG TAB PO PRN (12:18)
--- NOTE | 2017-07-17 16:40 | MB ---
cc: Ro Chandler MD DATE: 07/17/2017 DATE OF : 1945 AGE: [age] years old. REASON FOR CONSULTATION: Stroke. HISTORY OF PRESENT ILLNESS: Mr. Brizuela is a pleasant 72-year-old male with a history of anxiety, prostate cancer, COPD, hypertension, ITP. He comes in after he was found down on the ground by his daughter. States he had acute onset of right-sided weakness for a couple of days, did not come in hoping it would go away. He had a few falls over the last 2 days due to his right lower extremity weakness. He was brought in and had scans, found to have multiple infarcts of the left occipitoparietal basal ganglionic region. He was given aspirin in the ER. He follows with Dr. Kraus for treatment of ITP with Nplate. He was seen by Dr. Love today and cleared to have aspirin. PAST SURGICAL HISTORY: Bilateral shoulder, tonsillectomy, ear surgery. ALLERGIES: NONE. FAMILY HISTORY: Noncontributory. SOCIAL HISTORY: No tobacco, alcohol or drugs. Lives with his , he states. PHYSICAL EXAMINATION: VITAL SIGNS: Temperature 98.4, pulse 84, respiratory rate 16, blood pressure 174/86. NECK: Supple. I do not appreciate any bruits. HEART: Regular. ABDOMEN: Soft, nontender. NEUROLOGIC: He is awake and alert. He is oriented. His speech is intact. He does have right nasolabial fold attenuation and facial asymmetry. However, tongue midline. Facial sensation is normal. Motor: He is flaccid in the right upper extremity, but can feel painful stimuli as well as temperature and light touch. He is at best a 4/5 in the right lower extremity. His right toe is upgoing. DTRs are brisker on the right than on the left. Sensory otherwise seems to be normal. Cerebellar normal on the left. Gait is withheld. LABORATORY DATA: Reviewed. Platelets are 1126 today, white count 14.7. Coag panel normal. Chemistries: BUN 21. Hemoglobin A1c is pending. Cholesterol 135, LDL 81, HDL 40.4, triglycerides 70. IMAGING STUDIES: MRI shows multifocal small infarcts as stated, left occipital parietal and left basal ganglia. [place] MRA was unremarkable. Carotids: Left proximal ICA shows 50-60% stenosis. His echo is still pending. IMPRESSION AND RECOMMENDATIONS: Left hemispheric stroke, certainly concerning would be embolic maybe due to other causes. Thus far, his idiopathic thrombocytopenic purpura was over-corrected and now he is okay to start therapy with aspirin daily. Could this be an issue of his left carotid? He is less than 70%, but if there is no contraindication to contrast, I would recommend a CTA of the carotids to look for any ulcerative plaques. Watch him. If there are, then we will consult Vascular Surgery, but in any case watch him for any atrial fibrillation. PT, OT evaluation, rehab consult and permissible hypertension today. Start normalizing his blood pressure tomorrow. Continue current recommend issues. I will go ahead and order a CTA. His renal parameters are not an issue. MD ROXANN Christie/BERNIE , 03:02 PM , 04:39 PM
[2017-07-17 17:07] LABS: HEMOGLOBIN A1C 6.2 % (4.3-6.0)
--- NOTE | 2017-07-17 17:34 | ECHRPT ---
Indication: CVA/TIA CONCLUSIONS Normal left ventricular size. Mild concentric left ventricular hypertrophy. The left ventricular systolic function is hyperdynamic with an estimated ejection fraction in the ra nge of 65- 70%. The right atrial size is mildly dilated. Aortic valve sclerosis is present. Trace aortic valve regurgitation. There is trace tricuspid valve regurgitation. The estimated pulmonary arterial pressure is 33.4 mmHg. BP: / HR: Rhythm: Sinus MEASUREMENTS (Male / Female) Normal Values Technical Quality:Fair 2D ECHO LV Diastolic Diameter PLAX 4.4 cm 4.2 - 5.9 / 3.9 - 5.3 cm LV Systolic Diameter PLAX 2.9 cm IVS Diastolic Thickness 1.3 cm 0.6 - 1.0 / 0.6 - 0.9 cm LVPW Diastolic Thickness 1.3 cm 0.6 - 1.0 / 0.6 - 0.9 cm LV Relative Wall Thickness 0.6 RV Internal Dim ED PLAX 2.6 cm LVOT Diameter 1.9 cm Aortic Root Diameter 3.4 cm LA Systolic Diameter LX 3.2 cm 3.0 - 4.0 / 2.7 - 3.8 cm M-MODE AV Cusp Separation MM 1.8 cm DOPPLER AV Peak Velocity 193.0 cm/s AV Peak Gradient 14.9 mmHg AV Mean Gradient 8.0 mmHg AV Velocity Time Integral 36.7 cm LVOT Peak Velocity 118.0 cm/s LVOT Peak Gradient 5.6 mmHg LVOT Velocity Time Integral 22.1 cm AV Area Cont Eq vti 1.7 cm AV Area Cont Eq pk 1.7 cm Mitral E Point Velocity 102.0 cm/s Mitral A Point Velocity 105.0 cm/s Mitral E to A Ratio 1.0 LV E' Lateral Velocity 10.8 cm/s Mitral E to LV E' Lateral Ratio 9.4 LV E' Septal Velocity 10.5 cm/s Mitral E to LV E' Septal Ratio 9.7 TR Peak Velocity 242.0 cm/s TR Peak Gradient 23.4 mmHg Right Atrial Pressure 10.0 mmHg Pulmonary Artery Systolic Pressu 33.4 mmHg Right Ventricular Systolic Press 33.4 mmHg PV Peak Velocity 93.2 cm/s PV Peak Gradient 3.5 mmHg FINDINGS LEFT VENTRICLE Normal left ventricular size. Mild concentric left ventricular hypertrophy. The left ventricular systolic function is hyperdynamic with an estimated ejection fraction in the ra nge of 65- 70%. RIGHT VENTRICLE Normal right ventricular size and systolic function. LEFT ATRIUM The left atrial size is normal. RIGHT ATRIUM The right atrial size is mildly dilated. ATRIAL SEPTUM No atrial level shunt is demonstrated by color flow Doppler interrogation. AORTA The aortic root and proximal ascending aorta are normal in size on limited imaging. MITRAL VALVE Structurally normal mitral valve. No mitral valve stenosis or regurgitation. AORTIC VALVE Aortic valve sclerosis is present. Trace aortic valve regurgitation. TRICUSPID VALVE There is trace tricuspid valve regurgitation. The estimated pulmonary arterial pressure is 33.4 mmHg. PULMONARY VALVE No pulmonary valve regurgitation or stenosis. VESSELS The inferior vena cava was not well visualized. PERICARDIUM No pericardial effusion. Davi Hyde MD (Electronically Signed) Final Date:17 Jul 2017 17:33
[2017-07-17] MEDS: CYCLOSPORINE OPTH EACH EYE SCH (21:00)
[2017-07-17] MEDS ORDERED: IOHEXOL 350 MG/ML 10 ML VIAL (for RAD DIAG) IVCONTRAST ONE (21:09)
--- NOTE | 2017-07-17 21:24 | RADRPT ---
EXAM DATE/TIME: 07/17/2017 20:34 [facility] COMPARISON: MRA CAROTIDS W CONTRAST, July 17, 2017, 3:50. INDICATIONS : Evaluate for occlusion. IV CONTRAST: 80 cc Omnipaque 350 (iohexol) IV RADIATION DOSE: 11.61 CTDIvol (mGy) MEDICAL HISTORY : Hypertension. Hernia, hiatal. Carcinoma, prostate. SURGICAL HISTORY : Splenectomy. ENCOUNTER: Initial ACUITY: 1 day PAIN SCALE: 4/10 LOCATION: neck Elevated flow velocities and ICA/CCA ratios have been found to correlate with increased degrees of vessel stenosis, calculated as percentage of diameter relative to a normal segment of distal ICA/CCA. TECHNIQUE: Volumetric scanning was performed using a multirow detector CT scanner. The data was post processed with a variety of visualization algorithms including full-volume maximum intensity projection, multip lanar sliding thin-slab reformation, curved-planar reformation, and surface-rendering techniques. Us ing automated exposure control and adjustment of the mA and/or kV according to patient size, radiatio n dose was kept as low as reasonably achievable to obtain optimal diagnostic quality images. DICOM f ormat image data is available electronically for review and comparison. FINDINGS: AORTIC ARCH: There is a three-vessel origin of the great vessels from the aorta. No evidence of ostial narrowing. RIGHT CAROTID: The common carotid artery is intact. The carotid bulb has a normal configuration without ulceration o r narrowing. The internal carotid artery lumen is smooth without stenosis. The external carotid carolee ry is intact. LEFT CAROTID: Eccentric calcified plaque is seen involving the carotid bulb extending into the proximal ICA. Utiliz ing NASCET criteria this generates a 30-40% stenosis of the ICA origin. No ulceration. The more cepha lad portion of the extracranial ICA is patent. VERTEBRALS: The right vertebral artery is dominant. No stenotic lesions are seen. CONCLUSION: 1. 30-40% stenosis of the left ICA origin. 2. Patent right carotid. 3. Dominant right vertebral artery. Gurvinder Sim Jr., MD on July 17, 2017 at 21:18 Board Certified Radiologist. This report was verified electronically.
[2017-07-17] MEDS: FAMOTIDINE 20 MG TAB PO SCH (23:41)
[2017-07-17] MEDS: ACYCLOVIR 200 MG CAP PO SCH (23:41)
[2017-07-18] VITALS (8 sets, daily range): BP systolic 112–148; BP diastolic 53–80; PULSE 57–105; RESP 16–20; TEMP 96–98.3; O2SAT 92–97
[2017-07-18] MEDS: SODIUM CHLOR 0.9% 1000 ML INJ 1,000 ML IV SCH (04:00)
[2017-07-18 07:28] LABS: AUTOMATED NEUTROPHIL # 12.2 TH/MM3 (1.8-7.7); BASOPHIL # 0.1 TH/MM3 (0-0.2); BASOPHIL % 0.8 % (0.0-2.0); EOSINOPHIL # 0.1 TH/MM3 (0-0.4); EOSINOPHIL % 0.7 % (0.0-4.0); HEMATOCRIT 43.5 % (39.0-51.0); HEMOGLOBIN 14.8 GM/DL (13.0-17.0); LYMPH % 9.9 % (9.0-44.0); LYMPHOCYTE # 1.6 TH/MM3 (1.0-4.8); MEAN CELL VOLUME 92.7 FL (80.0-100.0); MEAN CORPUSCULAR HEMOGLOBIN 31.5 PG (27.0-34.0); MEAN PLATELET VOLUME 8.5 FL (7.0-11.0); MONO % 12.4 % (0.0-8.0); NEUT % 76.2 % (16.0-70.0); PLATELET COUNT 1048 TH/MM3 (150-450); RED BLOOD COUNT 4.69 MIL/MM3 (4.50-5.90); RED CELL DISTRIBUTION WIDTH 14.3 % (11.6-17.2); WHITE BLOOD COUNT 16.1 TH/MM3 (4.0-11.0)
[2017-07-18] MEDS: INSULIN ASPART SUPPLEMENTAL SCALE SQ SCH ×4 (08:00→21:00)
--- NOTE | 2017-07-18 08:33 | EKG ---
Date Performed: 07/16/2017 Time Performed: 21:36:35 PTAGE: 72 years EKG: Sinus rhythm WITH SINUS ARRHYTHMIA NORMAL ECG PREVIOUS TRACING : 11/12/2015 13.52 DOCTOR: Yash Meneses Interpretating Date/Time 07/18/2017 08:31:09
[2017-07-18] MEDS ORDERED: MIRABEGRON 50 MG PO SCH (09:00)
--- NOTE | 2017-07-18 09:23 | PD.ONC.PN ---
Subjective Subjective Remarks Afebrile overnight. Patient resting in room, working with speech therapy on swallow evaluation. No complaints. Objective Data Date Time Temp Pulse Resp B/P (MAP) Pulse Ox O2 Delivery O2 Flow Rate FiO2 07/18/17 04:12 77 07/18/17 04:05 90 18 95 07/17/17 21:00 95 Nasal Cannula 2.00 07/17/17 16:35 98.2 71 20 186/76 (112) 92 07/17/17 12:48 (115) 21 07/17/17 11:57 84 16 174/86 (115) 96 Room Air Result Diagram: 07/18/17 0410 07/17/17 0744 Laboratory Results Laboratory Tests Test 07/18/17 04:10 White Blood Count 16.1 TH/MM3 Red Blood Count 4.69 MIL/MM3 Hemoglobin 14.8 GM/DL Hematocrit 43.5 % Mean Corpuscular Volume 92.7 FL Mean Corpuscular Hemoglobin 31.5 PG Mean Corpuscular Hemoglobin Concent 34.0 % Red Cell Distribution Width 14.3 % Platelet Count 1048 TH/MM3 Mean Platelet Volume 8.5 FL Neutrophils (%) (Auto) 76.2 % Lymphocytes (%) (Auto) 9.9 % Monocytes (%) (Auto) 12.4 % Eosinophils (%) (Auto) 0.7 % Basophils (%) (Auto) 0.8 % Neutrophils # (Auto) 12.2 TH/MM3 Lymphocytes # (Auto) 1.6 TH/MM3 Monocytes # (Auto) 2.0 TH/MM3 Eosinophils # (Auto) 0.1 TH/MM3 Basophils # (Auto) 0.1 TH/MM3 CBC Comment AUTO DIFF Administered Medications Medications (Trade) Dose Ordered Sig/[place]ney Route PRN Reason Start Time Stop Time Status Last Admin Dose Admin Sodium Chloride 1,000 ml @ 70 mls/hr [id number] IV 07/17/17 02:05 07/18/17 04:00 Heparin Sodium (Porcine) (Heparin Inj) 5,000 units Q12H SQ 07/17/17 09:00 07/17/17 23:42 Aspirin (Ecotrin Ec) 325 mg DAILY PO 07/17/17 09:00 07/17/17 10:02 Budesonide/ Formoterol Fumarate (Symbicort 160-4.5 Mcg Inh) 2 puff Q12HR INH 07/17/17 09:00 07/17/17 10:02 Pravastatin Sodium (Pravachol) 40 mg DAILY PO 07/17/17 09:00 07/17/17 10:02 Acetaminophen/ Hydrocodone Bitart ([place] 5-325 Mg) 1 tab Q4H PRN PO PAIN SCALE 3 TO 5 07/17/17 02:15 07/17/17 12:18 Senna/Docusate Sodium (Michelle-Colace) 1 tab BID PO 07/17/17 09:00 07/17/17 23:41 Acyclovir (Zovirax) 400 mg BID PO 07/17/17 21:00 07/17/17 23:41 Famotidine (Pepcid) 20 mg BID PO 07/17/17 21:00 07/17/17 23:41 Objective Remarks GENERAL: pleasant, obese, middle aged male, sitting up in bed in nad SKIN: Warm and dry. HEAD: Normocephalic. EYES: No scleral icterus. No injection or drainage. NECK: Supple, trachea midline. CARDIOVASCULAR: +S1/S2 RESPIRATORY: Breath sounds equal bilaterally. No accessory muscle use. GASTROINTESTINAL: Abdomen soft, non-tender, nondistended. EXTREMITIES: No cyanosis NEUROLOGICAL: awake and alert. normal speech. right arm paresis. right leg weakness. Assessment/Plan Problem List: (1) Thrombocytosis ICD Codes: D47.3 - Essential (hemorrhagic) thrombocythemia Status: Acute Plan: --s/p splenectomy and was on Nplate (thrombopoietin analog) --on ASA 325mg PO daily (2) CVA (cerebral vascular accident) ICD Codes: I63.9 - Cerebral infarction, unspecified Status: Acute Plan: --presented w/ 2 days of numbness, weakness RUE, difficulty balancing and confusion. --MRI brain--> multifocal acute infarcts involving the left parietal, occipital lobes as well as the left basal ganglia. --MRA neck--> 50-60% occlusion at the level of the proximal left internal carotid artery. --do not suspect a primary underlying prothrombotic state, based on the findings of plaques in the left internal carotid artery suspect the most likely etiology of the ischemic strokes is cardiovascular in nature. I therefore do not believe this individual will require therapeutic anticoagulation based on a purely hematologic/prothrombotic indication. Assessment 72y/o admitted with CVA. Hematology consulted for h/o of ITP, now with thrombocytosis. h/o splenectomy and has been on Nplate therapy under the care of Dr. Mckay Kraus of [facility]. Plan 1. continue ASA 2. monitor CBC Attending Statement The exam, history, and the medical decision-making described in the above note were completed with the assistance of the mid-level provider. I reviewed and agree with the findings presented. I attest that I had a [id number] encounter with the patient on the same day, and personally performed and documented my assessment and findings in the medical record. Patient is still complaining of weakness of the right upper extremity. and daughter are at bedside. Speech has not been affected with his stroke Platelets are high but are slowly coming down. Patient's daughter has a lot of questions. I reviewed multiple scans with her on the EMR. We discussed that the MR of the neck showed 50-60% carotid stenosis but the CT angiogram of the neck showed 30-40% carotid stenosis. Continue with aspirin. Neurology to follow up on acute stroke. Patient has a history of ITP status post splenectomy currently he is on weekly Nplate. Patient's daughter wants all the records to be forwarded to his body hanger. [facility] I advised her that she needs to speak to the cyanide case hardener tomorrow morning. Daughter seems to be satisfied. She lives in [place]. She will be going out of country with her . She is contemplating transferring the patient to [place] where her brother lives. She will discussed with the cyanide case hardener. Problem Qualifiers (1) CVA (cerebral vascular accident): Qualified Codes: I63.132 - Cerebral infarction due to embolism of left carotid artery Linda Reyes July 18, 2017 09:23 Yvonne Carlton MD July 18, 2017 18:48
[2017-07-18] MEDS: BUDESONIDE-FORMOTEROL 160/4.5 MCG INHALER INH SCH ×2 (09:47→21:04)
[2017-07-18] MEDS: DOCUSATE SODIUM 50 MG/SENNA 8.6 MG TAB PO SCH ×2 (09:49→21:04)
[2017-07-18] MEDS: PRAVASTATIN SOD 40 MG TAB PO SCH (09:50)
[2017-07-18] MEDS: FAMOTIDINE 20 MG TAB PO SCH ×2 (09:50→21:04)
[2017-07-18] MEDS: ASPIRIN EC 325 MG TABEC PO SCH (09:50)
[2017-07-18] MEDS: ACYCLOVIR 200 MG CAP PO SCH (09:50)
[2017-07-18] MEDS: HEPARIN SODIUM - SQ 10,000 UNITS/ML VIAL SQ SCH ×2 (09:51→21:04)
[2017-07-18] MEDS: CYCLOSPORINE OPTH EACH EYE SCH ×2 (09:51→21:00)
[2017-07-18] MEDS: SODIUM CHLORIDE 0.9% FLUSH 10 ML FLUSH IV FLUSH SCH ×2 (09:51→21:05)
--- NOTE | 2017-07-18 14:40 | HHI.PR ---
Subjective Remarks F/U CVA. No new complaints still with RUE weakness Objective Vitals Vital Signs Date Time Temp Pulse Resp B/P (MAP) Pulse Ox O2 Delivery O2 Flow Rate FiO2 07/18/17 12:30 98.3 105 18 128/80 (96) 93 07/18/17 12:05 95 21 07/18/17 11:28 96 Nasal Cannula 2.00 07/18/17 08:00 97.7 98 20 148/70 (96) 92 07/18/17 04:12 77 07/18/17 04:05 90 18 95 07/17/17 21:00 95 Nasal Cannula 2.00 07/17/17 16:35 98.2 71 20 186/76 (112) 92 I/O 07/17/17 07/17/17 07/17/17 07/18/17 07/18/17 07/18/17 07:00 15:00 23:00 07:00 15:00 23:00 Output Total 500 ml Balance -500 ml Output Urine Total 500 ml # Voids 2 3 Result Diagram: 07/18/17 0410 07/17/17 0744 Imaging Last Impressions Neck Magnetic Resonance Angiography 07/17/17 0000 Signed Impressions: Service Date/Time: Monday, July 17, 2017 03:50 - CONCLUSION: 1. There is a 50-60%% stenosis of the left proximal internal carotid artery. 2. No significant stenosis right carotid artery. Manuel No MD Neck CTA 07/17/17 0000 Signed Impressions: Service Date/Time: Monday, July 17, 2017 20:34 - CONCLUSION: 1. 30-40%% stenosis of the left ICA origin. 2. Patent right carotid. 3. Dominant right vertebral artery. Gurvinder Sim Jr., MD Head Magnetic Resonance Angiography 07/17/17 0000 Signed Impressions: Service Date/Time: Monday, July 17, 2017 03:50 - CONCLUSION: 1. No large vessel stenosis or aneurysm. 2. Normal variants as above. Manuel No MD Brain MRI 07/17/17 0000 Signed Impressions: Service Date/Time: Monday, July 17, 2017 03:50 - CONCLUSION: 1. Multifocal small acute infarcts in the left occipital, parietal lobes and left basal ganglia. 2. No midline shift or mass effect Manuel No MD Head CT 07/16/172114 Signed Impressions: Service Date/Time: July 22:31 - CONCLUSION: No acute disease. Manuel No MD Chest X-Ray [id number]/[id number] Signed Impressions: Service Date/Time: July 21:28 - CONCLUSION: No acute disease. Manuel No MD Cervical Spine CT 07/16/17 0000 Signed Impressions: Service Date/Time: July 22:31 - CONCLUSION: Prominent degenerative changes. No fracture or subluxation. Manuel No MD Objective Remarks GENERAL: Pleasant elderly white male in no acute distress. HEENT: PERRLA, EOMI. No scleral icterus or conjunctival pallor. No lid lag or facial droop. CARDIOVASCULAR: Regular rate and rhythm. No obvious murmurs to auscultation. No chest tenderness to palpation. RESPIRATORY: No obvious rhonchi or wheezing. Clear to auscultation. Breath sounds equal bilaterally. GASTROINTESTINAL: Abdomen soft, non-tender, nondistended. BS normal. MUSCULOSKELETAL: Extremities without clubbing, cyanosis, or edema. No obvious deformities. NEUROLOGICAL: Awake, alert and oriented x4. RUE flaccid paralysis. Moving both lower extremities spontaneously. Procedures none A/P Problem List: (1) CVA (cerebral vascular accident) ICD Code: I63.9 - Cerebral infarction, unspecified Status: Acute (2) Thrombocytosis ICD Code: D47.3 - Essential (hemorrhagic) thrombocythemia Status: Acute (3) Chronic ITP (idiopathic thrombocytopenia) ICD Code: D69.3 - Immune thrombocytopenic purpura Status: Acute Assessment and Plan 1. CVA involving left occiput, parietal and basal ganglia with 50-60% left ICA stenosis: acute RUE flaccid paralysis x2 days w/ associated gait instability and recurrent falls, found down on ground by Daughter. Admit for further evaluation, ASA and Statin. Per neuro start treating BP today dc IVF . Neuro checks. RF modifications LDL 81 Hgb A1c 6.2. ECHO with LVH and EF 60%. Unremarkable tele 2. Thrombocytosis: Platelets 1252, concern for acute neurologic deficit from hyperviscosity, requeated Heme/Onc be consulted prior to admission for possible plateletpheresis in light of acute paralysis w/ thrombocytosis, ER physician spoke w/ Dr. Love, no further treatment needed at this time, pt ok for Med/ Surg admission per ER doc. Continue w/ work up as above, Neuro Checks q2h. Repeat labs in am. 3. ITP: H/o ITP, following w/ Dr. Kraus as outpatient, currently on treatment w / Nplate, no treatment given last week for elevated platelet count, will repeat labs in am. 4. Leukocytosis. No evidence of infection. Monitor DVT Prophylaxis: Heparin sq Discharge Planning Needs rehab CM consulted Problem Qualifiers (1) CVA (cerebral vascular accident): Qualified Codes: I63.132 - Cerebral infarction due to embolism of left carotid artery Patrice Gordon MD July 18, 2017 14:40
--- NOTE | 2017-07-18 14:42 | HHI.DCPOC ---
Discharge Care Plan Diagnosis: (1) CVA (cerebral vascular accident) Your Health Problems Are: Difficulty with ADL Exercise Tolerance Goals to Promote Your Health * To prevent worsening of your condition and complications * To maintain your health at the optimal level Directions to Meet Your Goals Take your medications as prescribed Follow your dietary instruction Follow activity as directed Keep your appointments as scheduled Take your immunizations and boosters as scheduled If your symptoms worsen call your PCP, if no PCP go to Urgent Care Center or Emergency Room Smoking is Dangerous to Your Health. Avoid second hand smoke Call the 24-hour hour crisis hotline for domestic abuse at Patrice Gordon MD July 18, 2017 14:42
[2017-07-19] VITALS (8 sets, daily range): BP systolic 119–148; BP diastolic 61–70; PULSE 80–112; RESP 18–22; TEMP 97.9–99.3; O2SAT 92–96
[2017-07-19 06:09] LABS: AUTOMATED NEUTROPHIL # 12.1 TH/MM3 (1.8-7.7); BASOPHIL # 0.2 TH/MM3 (0-0.2); EOSINOPHIL # 0.3 TH/MM3 (0-0.4); EOSINOPHIL % 1.6 % (0.0-4.0); HEMOGLOBIN 14.8 GM/DL (13.0-17.0); LYMPH % 12.3 % (9.0-44.0); LYMPHOCYTE # 2.1 TH/MM3 (1.0-4.8); MEAN CELL VOLUME 91.7 FL (80.0-100.0); MEAN CORPUSCULAR HEMOGLOBIN 30.9 PG (27.0-34.0); MEAN CORPUSCULAR HGB CONC 33.7 % (32.0-36.0); MEAN PLATELET VOLUME 8.8 FL (7.0-11.0); MONO % 15.2 % (0.0-8.0); MONOCYTE # 2.6 TH/MM3 (0-0.9); NEUT % 69.9 % (16.0-70.0); PLATELET COUNT 908 TH/MM3 (150-450); RED CELL DISTRIBUTION WIDTH 14.7 % (11.6-17.2); WHITE BLOOD COUNT 17.3 TH/MM3 (4.0-11.0)
[2017-07-19] MEDS: INSULIN ASPART SUPPLEMENTAL SCALE SQ SCH ×4 (08:00→21:00)
[2017-07-19] MEDS: PRAVASTATIN SOD 40 MG TAB PO SCH (08:58)
[2017-07-19] MEDS: HEPARIN SODIUM - SQ 10,000 UNITS/ML VIAL SQ SCH ×2 (08:58→21:33)
[2017-07-19] MEDS: FAMOTIDINE 20 MG TAB PO SCH ×2 (08:58→21:32)
[2017-07-19] MEDS: DOCUSATE SODIUM 50 MG/SENNA 8.6 MG TAB PO SCH ×2 (08:58→21:32)
[2017-07-19] MEDS: ASPIRIN EC 325 MG TABEC PO SCH (08:58)
[2017-07-19] MEDS: SODIUM CHLORIDE 0.9% FLUSH 10 ML FLUSH IV FLUSH SCH ×2 (08:59→21:35)
[2017-07-19] MEDS: BUDESONIDE-FORMOTEROL 160/4.5 MCG INHALER INH SCH ×2 (08:59→21:33)
--- NOTE | 2017-07-19 09:00 | HHI.PR ---
Subjective Remarks Follow up for left sided stroke. Patient is doing well. He is not able to move his right arm but able to move his right leg. No CP, SOB, fever, chills. Objective Vitals Vital Signs Date Time Temp Pulse Resp B/P (MAP) Pulse Ox O2 Delivery O2 Flow Rate FiO2 07/19/17 07:51 98.9 90 20 134/61 (85) 92 07/19/17 04:00 98.4 80 18 148/66 (93) 94 07/19/17 00:00 98.5 98 18 135/65 (88) 92 07/18/17 20:15 Nasal Cannula 2.00 07/18/17 20:00 98.3 78 18 112/53 (72) 92 07/18/17 19:59 97 21 07/18/17 16:00 75 07/18/17 12:30 98.3 105 18 128/80 (96) 93 07/18/17 12:05 95 21 07/18/17 11:28 96 Nasal Cannula 2.00 I/O 07/18/17 07/18/17 07/18/17 07/19/17 07/19/17 07/19/17 07:00 15:00 23:00 07:00 15:00 23:00 Output Total 200 ml 100 ml Balance -200 ml -100 ml Output Urine Total 200 ml 100 ml # Voids 3 1 Result Diagram: 07/19/17 0442 07/17/17 0744 Imaging Last Impressions Neck Magnetic Resonance Angiography 07/17/17 0000 Signed Impressions: Service Date/Time: Monday, July 17, 2017 03:50 - CONCLUSION: 1. There is a 50-60%% stenosis of the left proximal internal carotid artery. 2. No significant stenosis right carotid artery. Manuel No MD Neck CTA 07/17/17 0000 Signed Impressions: Service Date/Time: Monday, July 17, 2017 20:34 - CONCLUSION: 1. 30-40%% stenosis of the left ICA origin. 2. Patent right carotid. 3. Dominant right vertebral artery. Gurvinder Sim Jr., MD Head Magnetic Resonance Angiography 07/17/17 0000 Signed Impressions: Service Date/Time: Monday, July 17, 2017 03:50 - CONCLUSION: 1. No large vessel stenosis or aneurysm. 2. Normal variants as above. Manuel No MD Brain MRI 07/17/17 0000 Signed Impressions: Service Date/Time: Monday, July 17, 2017 03:50 - CONCLUSION: 1. Multifocal small acute infarcts in the left occipital, parietal lobes and left basal ganglia. 2. No midline shift or mass effect Manuel No MD Head CT [id number]/16/172114 Signed Impressions: Service Date/Time: July 22:31 - CONCLUSION: No acute disease. Manuel No MD Chest X-Ray [id number]/16/172114 Signed Impressions: Service Date/Time: July 21:28 - CONCLUSION: No acute disease. Manuel No MD Cervical Spine CT 07/16/17 Signed Impressions: Service Date/Time: July 22:31 - CONCLUSION: Prominent degenerative changes. No fracture or subluxation. Manuel No MD Objective Remarks GENERAL: Alert, Oriented x 3, NAD. SKIN: Warm and dry. HEAD: Normocephalic. EYES: No scleral icterus. No injection or drainage. NECK: Supple, trachea midline. No JVD or lymphadenopathy. CARDIOVASCULAR: Regular rate and rhythm without murmurs, gallops, or rubs. RESPIRATORY: Breath sounds equal bilaterally. No accessory muscle use. GASTROINTESTINAL: Abdomen soft, non-tender, nondistended. MUSCULOSKELETAL: No cyanosis, or edema. Right arm unable to move. BACK: Nontender without obvious deformity. No CVA tenderness. Procedures none A/P Problem List: (1) CVA (cerebral vascular accident) ICD Code: I63.9 - Cerebral infarction, unspecified Status: Acute (2) Thrombocytosis ICD Code: D47.3 - Essential (hemorrhagic) thrombocythemia Status: Acute (3) Chronic ITP (idiopathic thrombocytopenia) ICD Code: D69.3 - Immune thrombocytopenic purpura Status: Acute Assessment and Plan This is a 72-year-old male with a PMH of Anxiety, Prostate CA, COPD, HTN and ITP who was brought to the ER after being found down on the ground by daughter. Pt states he had acute onset of right arm flaccid paralysis 2 days prior to this admission, did not seek medical attention. MRI shows left sided stroke. Left sided acute stroke -Stroke involving left occipital, parietal and basal ganglia -Currently on Aspirin 325mg Qday and pravastatin 40 mg daily. -PT OT following. Possible evaluation by donald Bailey. 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 Kraus. Hematology service is following while patient is here. No anticoagulation. -Plt count improved from 1252K to 908K. Continue Aspirin 325mg Qday. Leukocytosis - No evidence of any acute infection. Full code. Lovenox. Problem Qualifiers (1) CVA (cerebral vascular accident): Qualified Codes: I63.132 - Cerebral infarction due to embolism of left carotid artery Edward Patel DO July 19, 2017 9:00 am
[2017-07-19] MEDS: ACETAMINOPHEN/HYDROcodone 325 MG/5 MG TAB PO PRN ×2 (12:45→19:34)
[2017-07-20] VITALS (7 sets, daily range): BP systolic 110–149; BP diastolic 66–77; PULSE 86–103; RESP 16–18; TEMP 97.8–98.8; O2SAT 90–96
--- NOTE | 2017-07-20 07:11 | HHI.PR ---
Subjective Remarks Follow up for left sided stroke, thrombocytosis. Objective Vitals Vital Signs Date Time Temp Pulse Resp B/P (MAP) Pulse Ox O2 Delivery O2 Flow Rate FiO2 07/20/17 04:00 97.8 86 18 149/77 (101) 95 07/20/17 00:01 90 07/20/17 00:00 98.2 89 18 110/67 (81) 96 07/19/17 21:30 Nasal Cannula 2.00 21 07/19/17 21:20 96 07/19/17 20:00 97.9 112 18 122/66 (84) 96 07/19/17 20:00 101 07/19/17 16:09 99.3 96 22 119/65 (83) 92 07/19/17 13:44 93 Nasal Cannula 2.00 07/19/17 13:36 97 07/19/17 12:11 99.0 100 22 127/70 (89) 93 07/19/17 07:51 98.9 90 20 134/61 (85) 92 I/O 07/19/17 07/19/17 07/19/17 07/20/17 07/20/17 07/20/17 07:00 15:00 23:00 07:00 15:00 23:00 Output Total 100 ml Balance -100 ml Output Urine Total 100 ml # Voids 2 # Bowel Movements 0 Result Diagram: 07/19/17 0442 07/17/17 0744 Objective Remarks GENERAL: Alert, Oriented x 3, NAD. SKIN: Warm and dry. HEAD: Normocephalic. EYES: No scleral icterus. No injection or drainage. NECK: Supple, trachea midline. No JVD or lymphadenopathy. CARDIOVASCULAR: Regular rate and rhythm without murmurs, gallops, or rubs. RESPIRATORY: Breath sounds equal bilaterally. No accessory muscle use. GASTROINTESTINAL: Abdomen soft, non-tender, nondistended. MUSCULOSKELETAL: No cyanosis, or edema. Right arm unable to move. BACK: Nontender without obvious deformity. No CVA tenderness. Procedures none A/P Problem List: (1) CVA (cerebral vascular accident) ICD Code: I63.9 - Cerebral infarction, unspecified Status: Acute (2) Thrombocytosis ICD Code: D47.3 - Essential (hemorrhagic) thrombocythemia Status: Acute (3) Chronic ITP (idiopathic thrombocytopenia) ICD Code: D69.3 - Immune thrombocytopenic purpura Status: Acute Assessment and Plan This is a 72-year-old male with a PMH of Anxiety, Prostate CA, COPD, HTN and ITP who was brought to the ER after being found down on the ground by daughter. Pt states he had acute onset of right arm flaccid paralysis 2 days prior to this admission, did not seek medical attention. MRI shows left sided stroke. Left sided acute stroke -Stroke involving left occipital, parietal and basal ganglia -Currently on Aspirin 325mg Qday and pravastatin 40 mg daily. -PT OT following. Possible evaluation by donald Bailey. 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 Kraus. Hematology service is following while patient is here. No anticoagulation. -Plt count improved from 1252K to 908K. Continue Aspirin 325mg Qday. Leukocytosis - No evidence of any acute infection. Full code. Lovenox. Problem Qualifiers (1) CVA (cerebral vascular accident): Qualified Codes: I63.132 - Cerebral infarction due to embolism of left carotid artery Edward Patel DO July 20, 2017 7:11 am
[2017-07-20 07:53] LABS: AUTOMATED NEUTROPHIL # 12.5 TH/MM3 (1.8-7.7); BASOPHIL # 0.2 TH/MM3 (0-0.2); EOSINOPHIL # 0.3 TH/MM3 (0-0.4); EOSINOPHIL % 1.5 % (0.0-4.0); HEMATOCRIT 45.4 % (39.0-51.0); HEMOGLOBIN 15.2 GM/DL (13.0-17.0); LYMPH % 11.8 % (9.0-44.0); LYMPHOCYTE # 2.1 TH/MM3 (1.0-4.8); MEAN CELL VOLUME 92.3 FL (80.0-100.0); MEAN CORPUSCULAR HEMOGLOBIN 30.8 PG (27.0-34.0); MEAN CORPUSCULAR HGB CONC 33.4 % (32.0-36.0); MEAN PLATELET VOLUME 9.1 FL (7.0-11.0); MONO % 15.1 % (0.0-8.0); MONOCYTE # 2.7 TH/MM3 (0-0.9); NEUT % 70.6 % (16.0-70.0); PLATELET COUNT 748 TH/MM3 (150-450); RED BLOOD COUNT 4.92 MIL/MM3 (4.50-5.90); RED CELL DISTRIBUTION WIDTH 14.3 % (11.6-17.2); WHITE BLOOD COUNT 17.8 TH/MM3 (4.0-11.0)
[2017-07-20] MEDS: INSULIN ASPART SUPPLEMENTAL SCALE SQ SCH ×2 (08:00→12:00)
[2017-07-20 08:31] LABS: ACANTHOCYTES OCC (NORMAL)
[2017-07-20] MEDS: DOCUSATE SODIUM 50 MG/SENNA 8.6 MG TAB PO SCH (08:34)
[2017-07-20] MEDS: PRAVASTATIN SOD 40 MG TAB PO SCH (08:34)
[2017-07-20] MEDS: FAMOTIDINE 20 MG TAB PO SCH (08:35)
[2017-07-20] MEDS: ASPIRIN EC 325 MG TABEC PO SCH (08:35)
[2017-07-20] MEDS: HEPARIN SODIUM - SQ 10,000 UNITS/ML VIAL SQ SCH (08:35)
[2017-07-20] MEDS: BUDESONIDE-FORMOTEROL 160/4.5 MCG INHALER INH SCH (08:35)
[2017-07-20] MEDS: SODIUM CHLORIDE 0.9% FLUSH 10 ML FLUSH IV FLUSH SCH (08:38)
--- NOTE | 2017-07-20 11:10 | HHI.DS ---
Discharge Summary Admission Date July 17, 2017 at 2:08 am Discharge Date: July 20, 2017 Admitting Diagnosis CVA (1) CVA (cerebral vascular accident) ICD Code: I63.9 - Cerebral infarction, unspecified Status: Acute (2) Thrombocytosis ICD Code: D47.3 - Essential (hemorrhagic) thrombocythemia Status: Acute (3) Chronic ITP (idiopathic thrombocytopenia) ICD Code: D69.3 - Immune thrombocytopenic purpura Status: Acute Procedures none Brief History - From Admission This is a 72-year-old male with a PMH of Anxiety, Prostate CA, COPD, HTN and ITP who was brought to the ER after being found down on the ground by daughter. Pt states he had acute onset of right arm flaccid paralysis 2 days ago, did not seek medical attention because "I was hoping it would go away". Also reports gait instability w/ multiple falls in the last few days, but denies any lower extremity weakness. He called his daughter today to tell her of his arm paralysis at which time she drove to his house and found him on the ground. Pt denies LOC or head trauma. BP 187/86, HR 95, O2 sat 98% RA, Afebrile. WBC 19.3. Hemoglobin 15.3. Platelets 1252, previously 55 on 05/24/2016. Pt states he follows w/ Dr. Kraus and is on treatment for ITP w/ Nplate, states his platelet count was high and was not given Nplate last week, cannot recall platelet count. Chemistry essentially unremarkable. Troponin negative. CT Head with no acute findings. CXR with no acute findings. S/p ASA in ER. I asked that case be discussed w/ Heme/Onc prior to admission in light of thrombocytosis w/ acute neurologic deficit for possible plateletpheresis, Dr. Love consulted, per ER doc, no further treatment needed at this time. CBC/BMP: 07/20/17 0547 07/17/17 0744 Significant Findings Laboratory Tests Test 07/18/17 04:10 07/19/17 04:42 07/20/17 05:47 White Blood Count 16.1 TH/MM3 (4.0-11.0) 17.3 TH/MM3 (4.0-11.0) 17.8 TH/MM3 (4.0-11.0) Platelet Count 1048 TH/MM3 (150-450) 908 TH/MM3 (150-450) 748 TH/MM3 (150-450) Neutrophils (%) (Auto) 76.2 % (16.0-70.0) 70.6 % (16.0-70.0) Monocytes (%) (Auto) 12.4 % (0.0-8.0) 15.2 % (0.0-8.0) 15.1 % (0.0-8.0) Neutrophils # (Auto) 12.2 TH/MM3 (1.8-7.7) 12.1 TH/MM3 (1.8-7.7) 12.5 TH/MM3 (1.8-7.7) Monocytes # (Auto) 2.0 TH/MM3 (0-0.9) 2.6 TH/MM3 (0-0.9) 2.7 TH/MM3 (0-0.9) Platelet Estimate HIGH (NORMAL) HIGH (NORMAL) HIGH (NORMAL) Imaging Last Impressions Neck Magnetic Resonance Angiography 07/17/17 Signed Impressions: Service Date/Time: Monday, July 17, 2017 03:50 - CONCLUSION: 1. There is a 50-60%% stenosis of the left proximal internal carotid artery. 2. No significant stenosis right carotid artery. Manuel No MD Neck CTA 07/17/17 Signed Impressions: Service Date/Time: Monday, July 17, 2017 20:34 - CONCLUSION: 1. 30-40%% stenosis of the left ICA origin. 2. Patent right carotid. 3. Dominant right vertebral artery. Gurvinder Sim Jr., MD Head Magnetic Resonance Angiography 07/17/17 Signed Impressions: Service Date/Time: Monday, July 17, 2017 03:50 - CONCLUSION: 1. No large vessel stenosis or aneurysm. 2. Normal variants as above. Manuel No MD Brain MRI 07/17/17 0000 Signed Impressions: Service Date/Time: Monday, July 17, 2017 03:50 - CONCLUSION: 1. Multifocal small acute infarcts in the left occipital, parietal lobes and left basal ganglia. 2. No midline shift or mass effect Manuel No MD Head CT [id number]/16/172114 Signed Impressions: Service Date/Time: July 22:31 - CONCLUSION: No acute disease. Manuel No MD Chest X-Ray [id number] Signed Impressions: Service Date/Time: July 21:28 - CONCLUSION: No acute disease. Manuel No MD Cervical Spine CT 07/16/17 0000 Signed Impressions: Service Date/Time: July 22:31 - CONCLUSION: Prominent degenerative changes. No fracture or subluxation. Manuel No MD PE at Discharge GENERAL: Alert, Oriented x 3, NAD. SKIN: Warm and dry. HEAD: Normocephalic. EYES: No scleral icterus. No injection or drainage. NECK: Supple, trachea midline. No JVD or lymphadenopathy. CARDIOVASCULAR: Regular rate and rhythm without murmurs, gallops, or rubs. RESPIRATORY: Breath sounds equal bilaterally. No accessory muscle use. GASTROINTESTINAL: Abdomen soft, non-tender, nondistended. MUSCULOSKELETAL: No cyanosis, or edema. Right arm unable to move. BACK: Nontender without obvious deformity. No CVA tenderness. Hospital Course This is a 72-year-old male with a PMH of Anxiety, Prostate CA, COPD, HTN and ITP who was brought to the ER after being found down on the ground by daughter. Pt states he had acute onset of right arm flaccid paralysis 2 days prior to this admission, did not seek medical attention. MRI shows left sided stroke. Left sided acute stroke -Stroke involving left occipital, parietal and basal ganglia -Currently on Aspirin 325mg Qday and pravastatin 40 mg daily. -PT OT following. Possible evaluation by donald Bailey. 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 Kraus. Hematology service is following while patient is here. No anticoagulation. -Plt count improved from 1252K to 908K. Continue Aspirin 325mg Qday. Leukocytosis - No evidence of any acute infection. Full code. Lovenox. Pt Condition on Discharge: Good Discharge Disposition: Rehab Inpatient Discharge Time: > 30 minutes Discharge Instructions DIET: Follow Instructions for: Heart Healthy Diet Activities you can perform: Regular-No Restrictions Follow up Referrals: Neurology - 1 Week Oncology/Hematology - 1 Week PCP Follow-up - 1 Week Continued Medications: Albuterol 18 GM Inh (Ventolin Hfa 18 GM Inh) 90 Mcg/Act Aer 2 PUFF INH Q4-6H PRN for SHORTNESS OF BREATH, #1 INHALER [address] (Ecotrin Regular Strength) 325 Mg Tabdr 325 MG PO DAILY, #30 TAB 0 Refills Budesonide-Formoterol Inh (Symbicort Inh) 160-4.5 Mcg/Act Aero 2 PUFF INH Q12HR, #1 INHALER 0 Refills Cyclosporine Opth (Restasis Opth) 0.05% Emul 1 DROP EACH EYE BID for Dry Eye, #1 BOX 0 Refills Hydrocodone-Acetaminophen ([place]) 10-325 Mg Tab 1 TAB PO Q4H PRN for PAIN, TAB 0 Refills Irbesartan (Avapro) 300 Mg Tab 300 MG PO DAILY for Blood Pressure Management, #30 TAB 0 Refills Mirabegron (Myrbetriq) 50 Mg Tab 50 MG PO DAILY for Urinary Symptom Managemen, #30 TAB 0 Refills Pravastatin (Pravastatin) 40 Mg Tab 40 MG PO DAILY for Cholesterol Management, #30 TAB 0 Refills Ranitidine (Ranitidine) 150 Mg Tab 150 MG PO BID for Heartburn Management, #60 TAB 0 Refills Silodosin (Rapaflo) 8 Mg Cap 8 MG PO DAILY for Manage Prostate Problems, #30 CAP 0 Refills Tiotropium Inh (Spiriva Handihaler) 18 Mcg Cap 18 MCG INH DAILY for COPD, #30 CAP 0 Refills 1 capsule = 18 mcg Discontinued Medications: Acyclovir (Acyclovir) 400 Mg Tab 400 MG PO BID for Mgmt Viral Infection, TAB 0 Refills Bupropion HCl ER 24 HR (Bupropion HCl ER 24 HR) 300 Mg Tab 300 MG PO DAILY for Control Depression, TAB 0 Refills Celecoxib (Celebrex) 200 Mg Cap 200 MG PO BID for Pain Management, CAP 0 Refills Silodosin (Rapaflo) 8 Mg Cap 8 MG PO DAILY for Manage Prostate Problems, #30 CAP 0 Refills Edward Patel DO July 20, 2017 11:10 am
== END 2017-07-20 14:52 | DRG 65 ==
LOC: NEPE 20:52 → NEDA 07-17 02:08 → UNDOADMIN 07-17 02:28 → NEDH 07-17 06:30 → N05A 07-17 13:31
PROVIDERS: ADMIT Hospitalist; ATTEND Hospitalist
DX: I63.40 Cerebral infarction due to embolism of unspecified cerebral artery (principal); D69.3 Immune thrombocytopenic purpura; J44.9 Chronic obstructive pulmonary disease, unspecified; E66.01 Morbid (severe) obesity due to excess calories; G83.21 Monoplegia of upper limb affecting right dominant side; I65.22 Occlusion and stenosis of left carotid artery; Z68.36 Body mass index [BMI] 36.0-36.9, adult; Z90.81 Acquired absence of spleen; I10 Essential (primary) hypertension; F41.9 Anxiety disorder, unspecified; D47.3 Essential (hemorrhagic) thrombocythemia; Z87.891 Personal history of nicotine dependence; Z96.612 Presence of left artificial shoulder joint; Z96.611 Presence of right artificial shoulder joint; Z85.46 Personal history of malignant neoplasm of prostate
CPT/HCPCS: 70450; 70498; 70544; 70548; 70551; 71045; 72125; 76937; 80053; 80061; 82550; 82948; 83036; 84484; 85025; 85610; 85730; 90471; 90714; 93005; 93306; A9579; G8996-GN; G8997-GN; G8998-GN; J1644; J2060; J7030; Q9967